=== PATIENT | male | born 1945 | race Caucasian/White ===

== ENCOUNTER 2016-10-30 14:39 | Emergency (ER) | payer MEDICARE, OTHER ==
[2016-10-30] MEDS ORDERED: BABY ASPIRIN 81 MG CHEW PO ONE (14:59)
[2016-10-30] MEDS ORDERED: Nitrostat 0.4 MG (ED) SL ONE ×3 (15:06→15:52)
--- NOTE | 2016-10-30 15:09 | ERPHSYRPT ---
- History of Present Illness Time Seen by Provider: 10/30/16 15:00 Historian: patient Exam Limitations: clinical condition Physician History: PATIENT WITH HISTORY OF HYPERTENSION AND CORONARY ARTERY DISEASE WITH PREVIOUS CARDIAC CATHERIZATION 3 YEARS AGO COMPLAINS OF LOWER STERNAL CHEST PAIN X 2 DAYS. DENIES ASSOCIATED DYSPNEA, DIAPHORESIS, PALPITATIONS, RADIATION OF PAIN TO NECK, JAW OR ARMS. Timing/Duration: yesterday Activities at Onset: none Quality: pressure, sharpness Location: substernal Chest Pain Radiation: no radiation Severity of Pain-Max: moderate Severity of Pain-Current: mild Associated Symptoms: denies symptoms Prior Chest Pain/Cardiac Workup: cardiac cath Nitro Today/Relief: 0.4 mg x 2, provided by ED Aspirin Treatment Today: 81 mg x 4, provided by ED Allergies/Adverse Reactions: No Known Drug Allergies Allergy (Verified 10/30/16 14:51) Home Medications: Aspirin EC 81 mg [Ecotrin 81 mg] 81 mg PO DAILY 11/08/12 [History] Gemfibrozil 600 mg [Lopid 600 mg] 300 mg PO BID 11/08/12 [History] Lisinopril 20 mg [Zestril 20 MG] 40 mg PO DAILY 11/08/12 [History] Metoprolol Succinate 50 mg [Toprol Xl 50 MG] 75 mg PO BID 11/08/12 [ History] Omeprazole 20 MG [Prilosec 20 mg] 20 mg PO DAILY 11/08/12 [History] Amlodipine Besylate 5 mg [Norvasc 5 mg] 5 mg DAILY 10/30/16 [History] Apixaban [Eliquis] 5 mg BID 10/30/16 [History] Hx Tetanus, Diphtheria Vaccination/Date Given: Yes Hx Influenza Vaccination/Date Given: No Hx Pneumococcal Vaccination/Date Given: Yes (Pt. would like one. Never had one.) - Review of Systems Constitutional: No Fever, No Chills Eyes: No Symptoms Ears, Nose, & Throat: No Symptoms Respiratory: No Cough, No Dyspnea Cardiac: Chest Pain, No Edema, No Syncope Abdominal/Gastrointestinal: No Symptoms, No Abdominal Pain, No Nausea, No Vomiting, No Diarrhea Genitourinary Symptoms: No Symptoms, No Dysuria Musculoskeletal: No Symptoms, No Back Pain, No Neck Pain Skin: No Symptoms, No Rash Neurological: No Dizziness, No Focal Weakness, No Sensory Changes Psychological: No Symptoms Endocrine: No Symptoms All Other Systems: Reviewed and Negative - Past Medical History Pertinent Past Medical History: Yes Neurological History: No Pertinent History ENT History: No Pertinent History Cardiac History: Angina, Arrhythmia, High Cholesterol, Hypertension Respiratory History: No Pertinent History Endocrine Medical History: No Pertinent History Musculoskeletal History: Other GI Medical History: No Pertinent History History: No Pertinent History Psycho-Social History: No Pertinent History Male Reproductive Disorders: No Pertinent History Other Medical History: mild coronary blockage without intervention. Hx Laminectomy L4-L5 back surgery in 1990. 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) - Nursing Vital Signs Nursing Vital Signs: Initial Vital Signs Pulse Rate [Bilateral] 73 Pulse Rate 69 Respiratory Rate 16 Blood Pressure [Left Arm] 119/70 Pain Intensity 0 - Physical Exam General Appearance: no apparent distress, alert Eye Exam: PERRL/EOMI, eyes nml inspection Ears, Nose, Throat Exam: normal ENT inspection, moist mucous membranes Neck Exam: normal inspection, non-tender, supple, full range of motion Respiratory Exam: normal breath sounds, lungs clear, No respiratory distress Cardiovascular Exam: regular rate/rhythm, normal heart sounds Gastrointestinal/Abdomen Exam: soft, normal bowel sounds (NONTENDER), No tenderness, No mass Back Exam: normal inspection, No CVA tenderness, No vertebral tenderness Extremity Exam: normal inspection, normal range of motion Neurologic Exam: alert, oriented x 3, cooperative, normal mood/affect, sensation nml, No motor deficits Skin Exam: normal color, warm, dry SpO2 Interpretation: normal SpO2: 97 - Course EKG Interpreted by Me: RATE, Sinus Rhythm, NORMAL AXIS, Right Bundle Branch Block - Radiology Exams Chest X-ray Interpretation: Discussed w/ radiologist, Negative - CT Exams Chest CT Interpretation: Discussed w/radiologist (NEGATIVE FOR PULMONARY EMBOLUS) Ordered Tests: Active Orders 24 hr Category Date Time Status Water/Wastewater Project Engineer STAT Care 10/30/16 14:59 Active EKG-ER Only STAT Care 10/30/16 14:59 Active IV Insertion STAT Care 10/30/16 14:59 Active Pulse Oximetry (ED) STAT Care 10/30/16 14:59 Active CHEST 1 VIEW (PORTABLE) Stat Exams 10/30/16 15:00 Completed CHEST WITH CONTRAST [CT] Stat Exams 10/30/16 15:54 Completed CBC W DIFF Stat Lab 10/30/16 15:00 Completed CMP Stat Lab 10/30/16 15:00 Completed D-DIMER QUANTITATION Stat Lab 10/30/16 15:06 Completed PROTIME WITH INR Stat Lab 10/30/16 15:06 Completed TROPONIN Q3H Lab 10/30/16 15:00 Completed TROPONIN Q3H Lab 10/30/16 18:00 Ordered TROPONIN Q3H Lab 10/30/16 21:00 Ordered TROPONIN Q3H Lab 10/31/16 00:00 Ordered TROPONIN Q3H Lab 10/31/16 03:00 Ordered Medication Summary Generic Name Dose Route Start Last Admin Trade Name Freq PRN Reason Stop Dose Admin Sodium Chloride 1,000 mls @ 50 mls/hr 10/30/16 15:15 10/30/16 15:19 Sodium Chloride 0.9% 1000 Ml IV 11/29/16 15:14 50 mls/hr .Q20H ERICA Administration Discontinued Medications Generic Name Dose Route Start Last Admin Trade Name Freq PRN Reason Stop Dose Admin Aspirin 324 mg 10/30/16 14:59 10/30/16 15:03 Baby Aspirin 81 Mg Chew PO 10/30/16 15:00 324 mg STAT ONE Administration Aspirin Confirm 10/30/16 15:13 Baby Aspirin 81 Mg Chew Administered 10/30/16 15:14 Dose 324 mg .ROUTE .STK-MED ONE Fentanyl Citrate 50 mcg 10/30/16 15:55 10/30/16 16:09 Sublimaze 100 Mcg/2 Ml IV 10/30/16 15:56 Not Given STAT ONE Fentanyl Citrate Confirm 10/30/16 16:03 Sublimaze 100 Mcg/2 Ml Administered 10/30/16 16:04 Dose 100 mcg .ROUTE .STK-MED ONE Nitroglycerin 0.4 mg 10/30/16 15:06 07/13/17 15:18 Nitrostat 0.4 Mg (Ed) SL 10/30/16 15:07 0.4 mg STAT ONE Administration Nitroglycerin Confirm 10/30/16 15:13 Nitrostat 0.4 Mg (Ed) Administered 10/30/16 15:14 Dose 0.4 mg SL .STK-MED ONE Nitroglycerin 0.4 mg 10/30/16 15:52 10/30/16 15:54 Nitrostat 0.4 Mg (Ed) SL 10/30/16 15:53 0.4 mg STAT ONE Administration Nitroglycerin 1 gm 10/30/16 15:52 10/30/16 16:29 Nitro-Bid 2% Ud Packets TOP 10/30/16 15:53 1 gm STAT ONE Administration Nitroglycerin Confirm 10/30/16 16:03 Nitro-Bid 2% Ud Packets Administered 10/30/16 16:04 Dose 1 gm .ROUTE .STK-MED ONE Ondansetron HCl 4 mg 10/30/16 15:55 10/30/16 16:09 Zofran 4 Mg/2 Ml Vial IV 10/30/16 15:56 Not Given STAT ONE Ondansetron HCl Confirm 10/30/16 16:03 Zofran 4 Mg/2 Ml Vial Administered 10/30/16 16:04 Dose 4 mg .ROUTE .STK-MED ONE Lab/Rad Data: Laboratory Result Diagrams 10/30/16 15:00 10/30/16 15:00 Laboratory Results 10/30/16 10/30/16 10/30/16 Range/Units 15:06 15:00 15:00 WBC (4.0-10.5) K/mm3 RBC (4.1-5.6) M/mm3 Hgb (12.5-18.0) gm/dl Hct (42-50) % MCV (78-100) fl MCH (26-32) pg MCHC (32-36) g/dl RDW (11.5-14.0) % Plt Count (150-450) K/mm3 MPV (6-9.5) fl Gran % (36.0-66.0) % Lymphocytes % (24.0-44.0) % Monocytes % (0.0-12.0) % Eosinophils % (0.00-5.0) % Basophils % (0.0-0.4) % Basophils # (0-0.4) INR 1.33 (0.8-3.0) D-Dimer 603 H* (0-500) ng/mL Sodium 139 (136-145) mEq/L Potassium 4.1 (3.5-5.1) mEq/L Chloride 101 (98-107) mEq/L Carbon Dioxide 28.8 (21-32) mEq/L Anion Gap 13.6 (5-15) MEQ/L BUN 13 (9-20) mg/dL Creatinine 1.24 (0.55-1.30) mg/dl Estimated GFR > 60 ML/MIN Glucose 106 (70-110) MG/DL Calcium 9.2 (8.5-10.1) mg/dL Total Bilirubin 0.60 (0.2-1.0) mg/dL AST 13 L (15-37) U/L ALT 18 (12-78) U/L Alkaline Phosphatase 57 (46-116) U/L Troponin I < 0.017 (0.000-0.056) ng/ml Serum Total Protein 7.4 (6.4-8.2) gm/dL Albumin 3.6 (3.4-5.0) g/dL 10/30/16 Range/Units 15:00 WBC 11.6 H (4.0-10.5) K/mm3 RBC 5.31 (4.1-5.6) M/mm3 Hgb 15.5 (12.5-18.0) gm/dl Hct 46.9 (42-50) % MCV 88.3 (78-100) fl MCH 29.2 (26-32) pg MCHC 33.0 (32-36) g/dl RDW 14.0 (11.5-14.0) % Plt Count 163 (150-450) K/mm3 MPV 11.3 H (6-9.5) fl Gran % 64.9 (36.0-66.0) % Lymphocytes % 22.2 L (24.0-44.0) % Monocytes % 10.4 (0.0-12.0) % Eosinophils % 2.2 (0.00-5.0) % Basophils % 0.3 (0.0-0.4) % Basophils # 0.03 (0-0.4) INR (0.8-3.0) D-Dimer (0-500) ng/mL Sodium (136-145) mEq/L Potassium (3.5-5.1) mEq/L Chloride (98-107) mEq/L Carbon Dioxide (21-32) mEq/L Anion Gap (5-15) MEQ/L BUN (9-20) mg/dL Creatinine (0.55-1.30) mg/dl Estimated GFR ML/MIN Glucose (70-110) MG/DL Calcium (8.5-10.1) mg/dL Total Bilirubin (0.2-1.0) mg/dL AST (15-37) U/L ALT (12-78) U/L Alkaline Phosphatase (46-116) U/L Troponin I (0.000-0.056) ng/ml Serum Total Protein (6.4-8.2) gm/dL Albumin (3.4-5.0) g/dL - Progress Progress: improved Progress Note: 10/30/16 18:07 PATIENT GIVEN NTG 0.4MG SL X 3 DOSES WITH COMPLETE RESOLUTION OR CHEST PAIN 10/30/16 18:09 PATIENT REFUSES OBSERVATION FOR 23HOURS. CONSULTED HIS SUPERVISOR RECEIVING AND PROCESSING [employer] DR MARTINEZ AT 1800 FOR FOLLOWUP Counseled pt/family regarding: lab results, diagnosis, need for follow-up - Departure Time of Disposition: 18:15 Departure Disposition: AMA Clinical Impression: ACUTE CHEST PAIN Condition: Stable Critical Care Time: No Additional Instructions: BEGIN NITROGLYCERIN 0.4MG EVERY 5 MINUTES FOR ONSET OF CHEST PAIN THEN FOLLOWUP AT EMERGENCY. FOLLOWUP WITH YOUR LIME MIXER TENDER TOMORROW, AND CONTINUE ALL CURRENT MEDICATIONS.
[2016-10-30] MEDS ORDERED: BABY ASPIRIN 81 MG CHEW ONE (15:13)
[2016-10-30] MEDS ORDERED: Sodium Chloride 0.9% 1000 ML 1,000 ML ONE (15:13)
[2016-10-30] MEDS ORDERED: Sodium Chloride 0.9% 1000 ML 1,000 ML IV SCH (15:15)
[2016-10-30 15:19] LABS: BASOPHIL % 0.3 % (0.0-0.4); Eosinophil % 2.2 % (0.00-5.0); Granulocytes % 64.9 % (36.0-66.0); Lymphocytes % 22.2 % (24.0-44.0); Mean Cell Volume 88.3 fl (78-100); Mean Corpuscular Hemoglobin 29.2 pg (26-32); Mean Platelet Volume 11.3 fl (6-9.5); Monocytes % 10.4 % (0.0-12.0); Platelet Count 163 K/mm3 (150-450); Red Blood Count 5.31 M/mm3 (4.1-5.6); White Blood Count 11.6 K/mm3 (4.0-10.5)
--- NOTE | 2016-10-30 15:22 | XRAY ---
Indication: Chest pain. Comparison: April 27, 2015. Portable chest again demonstrates normal heart and lungs with anterior chest electronic monitoring device. Bony thorax intact again with mild osteopenia and degenerative changes. No new/acute findings.
[2016-10-30 15:37] LABS: INR 1.33 (0.8-3.0); PROTIME 15.1 SECONDS (8.83-12.87)
[2016-10-30 15:45] LABS: ALBUMIN 3.6 g/dL (3.4-5.0); ALKALINE PHOSPHATASE 57 U/L (46-116); ANION GAP 13.6 MEQ/L (5-15); BLOOD UREA NITROGEN 13 mg/dL (9-20); CHLORIDE 101 mEq/L (98-107); Carbon Dioxide 28.8 mEq/L (21-32); Glucose 106 MG/DL (70-110); Potassium 4.1 mEq/L (3.5-5.1); SGOT/AST 13 U/L (15-37); SGPT/ALT 18 U/L (12-78); SODIUM 139 mEq/L (136-145); Total Protein 7.4 gm/dL (6.4-8.2)
[2016-10-30] MEDS ORDERED: NITRO-BID 2% UD PACKETS TOP ONE (15:52)
[2016-10-30] MEDS ORDERED: Zofran 4 MG/2 ML VIAL IV ONE (15:55)
[2016-10-30] MEDS ORDERED: SUBLIMAZE 100 MCG/2 ML IV ONE (15:55)
[2016-10-30] MEDS ORDERED: SUBLIMAZE 100 MCG/2 ML ONE (16:03)
[2016-10-30] MEDS ORDERED: NITRO-BID 2% UD PACKETS ONE (16:03)
[2016-10-30] MEDS ORDERED: Zofran 4 MG/2 ML VIAL ONE (16:03)
--- NOTE | 2016-10-30 16:48 | XRAY ---
Indication: Chest pain. Elevated d-dimer. Multiple contiguous axial images obtained through the chest using 80 cc Isovue 370 contrast and PE protocol. Comparison: None There is satisfactory opacification of the pulmonary arteries to include the lobar and segmental branches. No filling defect or pulmonary embolus. Heart is not enlarged. Aorta is normal in course and caliber. No pathologic mediastinal/hilar lymphadenopathy. Examination of the lung parenchyma demonstrates mild bilateral dependent atelectasis. Minimal emphysema in both upper lobes. Minimal biapical subpleural cysts and minimal left lung base scarring. Right apical 5 mm noncalcified nodule posteriorly (image 10, series 4). No infiltrate, consolidation, or effusion. Bony thorax intact with mild degenerative changes throughout the spine. Electronic monitoring device seen anterior to the sternum. Limited upper abdomen including adrenal glands are unremarkable. Impression: 1. Negative for pulmonary embolus. 2. No acute cardiopulmonary abnormalities. 3. Minimal pulmonary emphysema. 4. Indeterminate 5 mm right apical noncalcified pulmonary nodule. Comparison studies would be of benefit if they were performed elsewhere. Otherwise consider follow-up per Fleischner guidelines. CTDI 14.32
[2016-10-30 17:17] VITALS: BP 119/70
[2016-10-30 18:21] VITALS: PULSE 70; O2SAT 98
== END 2016-10-30 18:21 | disposition left against medical advice (07) ==
LOC: ED 14:39
DX: R07.89 Other chest pain (principal); I10 Essential (primary) hypertension; I25.10 Atherosclerotic heart disease of native coronary artery without angina pectoris; Z79.899 Other long term (current) drug therapy; Z79.01 Long term (current) use of anticoagulants; E78.00 Pure hypercholesterolemia, unspecified
CPT/HCPCS: 36000; 36415; 71010; 71260; 80053; 84484; 85025; 85379; 85610; 93005; 93041; 96360; 96361; 99284; J2405; J3010; A9270-GY

== ENCOUNTER 2018-12-22 15:00 | Emergency (ER) | payer MEDICARE, OTHER ==
[2018-12-22] MEDS ORDERED: solu-MEDROL 125 MG IV ONE (15:13)
[2018-12-22] MEDS ORDERED: DUONEB 0.5-3 MG/3 ml Neb IH ONE ×2 (15:13→15:28)
[2018-12-22] MEDS ORDERED: solu-MEDROL 125 MG ONE (15:19)
[2018-12-22 15:28] LABS: BASOPHIL % 0.1 % (0.0-0.4); Basophil (Absolute #) 0.02 (0-0.4); Eosinophil % 0.1 % (0.00-5.0); Eosinophil (Absolute #) 0.02 (0-0.5); Granulocyte Absolute (ANC) 13.32 (1.4-6.9); Granulocytes % 80.2 % (36.0-66.0); Hematocrit 48.5 % (42-50); Hemoglobin 15.9 gm/dl (12.5-18.0); Lymphocyte (Absolute #) 1.72 (1.0-4.6); Lymphocytes % 10.4 % (24.0-44.0); Mean Corpuscular Hemoglobin 29.8 pg (26-32); Mean Corpuscular Hgb Concent. 32.8 g/dl (32-36); Mean Platelet Volume 12.1 fl (6-9.5); Monocyte (Absolute #) 1.53 (0.0-1.3); Monocytes % 9.2 % (0.0-12.0); Platelet Count 180 K/mm3 (150-450); Red Blood Count 5.33 M/mm3 (4.1-5.6); Red Cell Distribution Width 14.2 % (11.5-14.0); White Blood Count 16.6 K/mm3 (4.0-10.5)
[2018-12-22 15:35] LABS: Lactic Acid 2.4 (0.4-2.0); VBG BASE EXCESS -0.1 (-2.0-2.0); VBG CARBOXYHEMOGLOBIN 4.9 % T HGB (0.0-6.9); VBG HEMOGLOBIN 16.2; VBG O2 SATURATION 94.6 (95-100); VBG PCO2 37 mm/Hg (42-55); VBG PO2 60 mm/Hg (25-40); VBG POTASSIUM 4.8 (3.5-5.1); VBG pH 7.42 (7.32-7.42)
[2018-12-22] MEDS ORDERED: Sodium Chloride 0.9% 1000 ML 1,000 ML IV STA ×2 (15:41→18:24)
--- NOTE | 2018-12-22 15:46 | ERPHSYRPT ---
- History of Present Illness Source: patient Exam Limitations: no limitations Patient Subjective Stated Complaint: C/o sob past couple days and wheezing first noticed last night. Triage Nursing Assessment: Patient here from [facility] due shortness of breath and wheezing. Nurse from [facility] pushed patient here in w/c. Patient aaox3 , color good, audible wheezing noted. No resp distress noted. GARCIA well, Lung sounds with wheezes bilaterally. Denies chest pain. states h/o afib. states takes elaquis 5mg bid. No edema to extremeties noted. MD with patient at this time. Physician History: The patient has had increasing wheezing which is causing shortness of breath with exertion over the past day. Patient was referred to the emergency department from a local clinic care unit. Timing/Duration: yesterday Activities at Onset: activity Severity of Dyspnea-Max: mild Severity of Dyspnea-Current: mild Possible Cause: occasional episodes Modifying Factors: Improves With: activity (slightly worsens; has not tried anything to help with symptoms) Associated Symptoms: intermittent, wheezing, No anxiety, No cough, No chest pain /discomfort, No edema, No fever, No insomnia, No loss of appetite, No lightheadedness, No weakness, No ankle swelling, No hemoptysis, No calf pain, No dizziness, No heaviness, No heart racing, No lightheadedness, No muscle spasms feet, No muscle spasms hands, No painful breathing, No productive cough, No sweating, No tightness Allergies/Adverse Reactions: No Known Drug Allergies Allergy (Verified 12/22/18 15:12) Home Medications: Lisinopril 20 mg [Zestril 20 MG] 40 mg PO DAILY 11/08/12 [History] Metoprolol Succinate 50 mg [Toprol Xl 50 MG] 75 mg PO BID 11/08/12 [ History] Omeprazole 20 MG [Prilosec 20 mg] 20 mg PO DAILY 11/08/12 [History] Amlodipine Besylate 5 mg [Norvasc 5 mg] 5 mg DAILY 10/30/16 [History] Apixaban [Eliquis] 5 mg BID 10/30/16 [History] Pravastatin Sodium 20 mg PO DAILY 12/22/18 [History] Hx Tetanus, Diphtheria Vaccination/Date Given: No Hx Influenza Vaccination/Date Given: No Hx Pneumococcal Vaccination/Date Given: No - Review of Systems Constitutional: No Fever, No Chills Eyes: No Symptoms, No Eye Pain, No Eye Redness, No Photophobia Ears, Nose, & Throat: No Symptoms, No Nose Congestion, No Nose Discharge Respiratory: Dyspnea, Dyspnea on Exertion (PHELPS), Wheezing, No Cough, No Stridor Cardiac: No Chest Pain, No Edema, No Syncope Abdominal/Gastrointestinal: No Abdominal Pain, No Nausea, No Vomiting, No Diarrhea, No Hematemesis, No Hematochezia, No Melena Genitourinary Symptoms: No Dysuria, No Hematuria, No Flank Pain Musculoskeletal: No Back Pain, No Neck Pain Skin: No Rash Neurological: No Dizziness, No Focal Weakness, No Sensory Changes Psychological: No Symptoms Endocrine: No Symptoms Hematologic/Lymphatic: No Blood Clots, No Easy Bleeding All Other Systems: Reviewed and Negative - Past Medical History Pertinent Past Medical History: Yes Neurological History: No Pertinent History ENT History: No Pertinent History Cardiac History: Angina, Arrhythmia, High Cholesterol, Hypertension Respiratory History: No Pertinent History Endocrine Medical History: No Pertinent History Musculoskeletal History: Other GI Medical History: No Pertinent History History: No Pertinent History Psycho-Social History: No Pertinent History Male Reproductive Disorders: No Pertinent History Other Medical History: mild coronary blockage without intervention. Hx Laminectomy L4-L5 back surgery in 1990. - Past Surgical History Past Surgical History: Yes Neuro Surgical History: No Pertinent History Cardiac: Cardiac Catheterization Respiratory: No Pertinent History Gastrointestinal: No Pertinent History Genitourinary: No Pertinent History Musculoskeletal: Other Male Surgical History: No Pertinent History Other Surgical History: T&A, BACK SURGERY - Social History Smoking Status: Current every day smoker How long have you smoked: 50 yrs Exposure to second hand smoke: No Drug Use: none Patient Lives Alone: No - Nursing Vital Signs Nursing Vital Signs: Initial Vital Signs Temperature 97.3 F 12/22/18 15:03 Pulse Rate 65 12/22/18 15:03 Respiratory Rate 22 12/22/18 15:03 Blood Pressure 133/90 12/22/18 15:03 O2 Sat by Pulse Oximetry 98 12/22/18 15:03 Pain Scale Pain Intensity 0 - Physical Exam General Appearance: no apparent distress, alert Eye Exam: PERRL/EOMI Ears, Nose, Throat Exam: hearing grossly normal, normal ENT inspection, normal pharynx, No sinus pain/drainage, No nasal congestion, No pharyngeal erythema, No tonsillar exudate Neck Exam: normal inspection, non-tender, supple, full range of motion, No Brudzinski, No Kernig's, No lymphadenopathy (R), No subcutaneous emphysema Respiratory Exam: airway intact, wheezing, No respiratory distress, No diminished breath sounds, No accessory muscle use, No prolonged expirations, No crackles/rales, No rhonchi, No stridor Cardiovascular/Chest Exam: normal heart sounds, regular rate/rhythm, normal peripheral pulses, No murmur, No edema, No JVD Abdominal/Gastrointestinal Exam: soft, No tenderness, No distention, No mass Extremity Exam: non-tender, normal range of motion, normal inspection, no calf tenderness, no pedal edema Neurologic Exam: alert, oriented x 3, cooperative, 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 handler II-XII nml as tested, sensation nml, No motor deficits Skin Exam: normal color, warm, No dry Lymphatic Exam: No adenopathy SpO2 Interpretation: normal SpO2: 98 O2 Delivery: Room Air - Course Nursing assessment & vital signs reviewed: Yes EKG Interpreted by Me: RATE (60), NORMAL AXIS, Right Bundle Branch Block, NORMAL ST-T, Other (new right bundle branch block in comparison to EKG from 12/10 with probable right ventricular hypertrophy that's also new;) - Radiology Exams Chest X-ray Interpretation: Reviewed by me, No Pneumonia, No Pneumothorax, Nml Heart Size, Nml Mediastinum, Other (anterior chest electronic monitoring device; confirmed by radiologist interpretation) Ordered Tests: Active Orders 24 hr Category Date Time Status Data Warehousing Manager STAT Care 12/22/18 15:14 Active EKG-ER Only STAT Care 12/22/18 15:13 Active IV Insertion STAT Care 12/22/18 15:13 Active CHEST 2 VIEWS (PA AND LAT) Stat Exams 12/22/18 15:14 Completed BLOOD CULTURE Stat Lab 12/22/18 15:50 Received CBC W DIFF Stat Lab 12/22/18 15:15 Completed CMP Stat Lab 12/22/18 15:15 Completed Lactic Acid Stat Lab 12/22/18 15:30 Completed Lactic Acid Stat Lab 12/22/18 17:39 Results MAGNESIUM Stat Lab 12/22/18 15:15 Completed NT PRO BNP Stat Lab 12/22/18 15:15 Completed PROTIME WITH INR Stat Lab 12/22/18 15:15 Completed PTT Stat Lab 12/22/18 15:15 Completed TROPONIN Q3H Lab 12/22/18 15:15 Completed TROPONIN Q3H Lab 12/22/18 18:15 Ordered TROPONIN Q3H Lab 12/22/18 21:15 Ordered TROPONIN Q3H Lab 12/23/18 00:15 Ordered TROPONIN Q3H Lab 12/23/18 03:15 Ordered UA W/RFX UR CULTURE Stat Lab 12/22/18 16:55 Completed VENOUS BLOOD GAS Stat Lab 12/22/18 15:30 Completed Peak Expiratory Flow Rate ONCE RT 12/22/18 15:37 Active Respiratory Therapy Assessment DAILY RT 12/22/18 15:37 Active Medication Summary Generic Name Dose Route Start Last Admin Trade Name Freq PRN Reason Stop Dose Admin Sodium Chloride 1,000 mls @ 999 mls/hr 12/22/18 18:24 Sodium Chloride 0.9% 1000 Ml IV 12/22/18 19:24 .Q1H1M STA Discontinued Medications Generic Name Dose Route Start Last Admin Trade Name Freq PRN Reason Stop Dose Admin Albuterol/Ipratropium 6 ml 12/22/18 15:13 12/22/18 15:40 Duoneb 0.5-3 Mg/3 Ml Neb IH 12/22/18 15:14 6 ml STAT ONE Administration Albuterol/Ipratropium Confirm 12/22/18 15:28 Duoneb 0.5-3 Mg/3 Ml Neb Administered 12/22/18 15:29 Dose 6 ml IH .STK-MED ONE Sodium Chloride 1,000 mls @ 999 mls/hr 12/22/18 15:41 12/22/18 17:27 Sodium Chloride 0.9% 1000 Ml IV 12/22/18 16:41 Infused .Q1H1M STA Infusion Sodium Chloride Confirm 12/22/18 15:58 Sodium Chloride 0.9% 1000 Ml Administered 12/22/18 15:59 Dose 1,000 mls @ ud .ROUTE .STK-MED ONE Methylprednisolone Sodium Succinate 125 mg 12/22/18 15:13 12/22/18 15:30 Solu-Medrol 125 Mg IV 12/22/18 15:14 125 mg STAT ONE Administration Methylprednisolone Sodium Succinate Confirm 12/22/18 15:19 Solu-Medrol 125 Mg Administered 12/22/18 15:20 Dose 125 mg .ROUTE .STK-MED ONE Lab/Rad Data: Laboratory Result Diagrams 12/22/18 15:15 12/22/18 15:15 Laboratory Results 12/22/18 12/22/18 12/22/18 Range/Units 17:39 16:55 15:30 WBC (4.0-10.5) K/mm3 RBC (4.1-5.6) M/mm3 Hgb (12.5-18.0) gm/dl Hct (42-50) % MCV (78-100) fl MCH (26-32) pg MCHC (32-36) g/dl RDW (11.5-14.0) % Plt Count (150-450) K/mm3 MPV (6-9.5) fl Gran % (36.0-66.0) % Eos # (Auto) (0-0.5) Absolute Lymphs (auto) (1.0-4.6) Absolute Monos (auto) (0.0-1.3) Lymphocytes % (24.0-44.0) % Monocytes % (0.0-12.0) % Eosinophils % (0.00-5.0) % Basophils % (0.0-0.4) % Absolute Granulocytes (1.4-6.9) Basophils # (0-0.4) PT (8.83-12.87) SECONDS INR (0.8-3.0) APTT (24.1-36.1) SECONDS pO2/FiO2 Ratio 21.0 % VBG pH 7.42 (7.32-7.42) VBG pCO2 at Pat Temp 37 L (42-55) mm/Hg VBG pO2 at Pat Temp 60 H (25-40) mm/Hg VBG HCO3 24.0 (22-28) meq/L VBG O2 Sat (Keri) 94.6 L (95-100) VBG Base Excess -0.1 (-2.0-2.0) VBG Hemoglobin 16.2 VBG Carboxyhemoglobin 4.9 (0.0-6.9) % T HGB POC Potassium 4.8 (3.5-5.1) Sodium (137-145) mmol/L Potassium (3.5-5.1) mmol/L Chloride (98-107) mmol/L Carbon Dioxide (22-30) mmol/L Anion Gap (5-15) MEQ/L BUN (9-20) mg/dL Creatinine (0.66-1.25) mg/dL Estimated GFR ML/MIN Glucose (74-106) mg/dL Lactic Acid 2.5 H 2.4 H (0.4-2.0) Calcium (8.4-10.2) mg/dL Magnesium (1.6-2.3) mg/dL Total Bilirubin (0.2-1.3) mg/dL AST (17-59) U/L ALT (0-50) U/L Alkaline Phosphatase (38-126) U/L Troponin I (0.000-0.034) ng/mL NT-Pro-B Natriuret Pep (0-900) pg/mL Serum Total Protein (6.3-8.2) g/dL Albumin (3.5-5.0) g/dL Urine Color YELLOW (YELLOW) Urine Appearance CLEAR (CLEAR) Urine pH 5.0 (5-6) Ur Specific [place] 1.014 (1.005-1.025) Urine Protein NEGATIVE (Negative) Urine Ketones NEGATIVE (NEGATIVE) Urine Blood SMALL (0-5) Tobi/ul Urine Nitrite NEGATIVE (NEGATIVE) Urine Bilirubin NEGATIVE (NEGATIVE) Urine Urobilinogen NEGATIVE (0-1) mg/dL Ur Leukocyte Esterase NEGATIVE (NEGATIVE) Urine WBC (Auto) NONE (0-5) /HPF Urine RBC (Auto) NONE (0-2) /HPF U Hyaline Cast (Auto) 3-5 (0-2) /LPF U Epithel Cells (Auto) NONE (FEW) /HPF Urine Bacteria (Auto) NONE (NEGATIVE) /HPF Urine Mucus (Auto) SLIGHT (NEGATIVE) /HPF Urine Culture Reflexed NO (NO) Urine Glucose NEGATIVE (NEGATIVE) mg/dL 12/22/18 12/22/18 12/22/18 Range/Units 15:15 15:15 15:15 WBC (4.0-10.5) K/mm3 RBC (4.1-5.6) M/mm3 Hgb (12.5-18.0) gm/dl Hct (42-50) % MCV (78-100) fl MCH (26-32) pg MCHC (32-36) g/dl RDW (11.5-14.0) % Plt Count (150-450) K/mm3 MPV (6-9.5) fl Gran % (36.0-66.0) % Eos # (Auto) (0-0.5) Absolute Lymphs (auto) (1.0-4.6) Absolute Monos (auto) (0.0-1.3) Lymphocytes % (24.0-44.0) % Monocytes % (0.0-12.0) % Eosinophils % (0.00-5.0) % Basophils % (0.0-0.4) % Absolute Granulocytes (1.4-6.9) Basophils # (0-0.4) PT 14.6 H (8.83-12.87) SECONDS INR 1.29 (0.8-3.0) APTT 33.7 (24.1-36.1) SECONDS pO2/FiO2 Ratio % VBG pH (7.32-7.42) VBG pCO2 at Pat Temp (42-55) mm/Hg VBG pO2 at Pat Temp (25-40) mm/Hg VBG HCO3 (22-28) meq/L VBG O2 Sat (Keri) (95-100) VBG Base Excess (-2.0-2.0) VBG Hemoglobin VBG Carboxyhemoglobin (0.0-6.9) % T HGB POC Potassium (3.5-5.1) Sodium 140 (137-145) mmol/L Potassium 3.9 (3.5-5.1) mmol/L Chloride 106 (98-107) mmol/L Carbon Dioxide 24 (22-30) mmol/L Anion Gap 14.0 (5-15) MEQ/L BUN 28 H (9-20) mg/dL Creatinine 1.44 H (0.66-1.25) mg/dL Estimated GFR 51.3 ML/MIN Glucose 125 H (74-106) mg/dL Lactic Acid (0.4-2.0) Calcium 9.5 (8.4-10.2) mg/dL Magnesium 2.0 (1.6-2.3) mg/dL Total Bilirubin 0.60 (0.2-1.3) mg/dL AST 23 (17-59) U/L ALT 14 (0-50) U/L Alkaline Phosphatase 59 (38-126) U/L Troponin I < 0.012 (0.000-0.034) ng/mL NT-Pro-B Natriuret Pep 236 (0-900) pg/mL Serum Total Protein 7.9 (6.3-8.2) g/dL Albumin 4.3 (3.5-5.0) g/dL Urine Color (YELLOW) Urine Appearance (CLEAR) Urine pH (5-6) Ur Specific [place] (1.005-1.025) Urine Protein (Negative) Urine Ketones (NEGATIVE) Urine Blood (0-5) Tobi/ul Urine Nitrite (NEGATIVE) Urine Bilirubin (NEGATIVE) Urine Urobilinogen (0-1) mg/dL Ur Leukocyte Esterase (NEGATIVE) Urine WBC (Auto) (0-5) /HPF Urine RBC (Auto) (0-2) /HPF U Hyaline Cast (Auto) (0-2) /LPF U Epithel Cells (Auto) (FEW) /HPF Urine Bacteria (Auto) (NEGATIVE) /HPF Urine Mucus (Auto) (NEGATIVE) /HPF Urine Culture Reflexed (NO) Urine Glucose (NEGATIVE) mg/dL 12/22/18 Range/Units 15:15 WBC 16.6 H (4.0-10.5) K/mm3 RBC 5.33 (4.1-5.6) M/mm3 Hgb 15.9 (12.5-18.0) gm/dl Hct 48.5 (42-50) % MCV 91.0 (78-100) fl MCH 29.8 (26-32) pg MCHC 32.8 (32-36) g/dl RDW 14.2 H (11.5-14.0) % Plt Count 180 (150-450) K/mm3 MPV 12.1 H (6-9.5) fl Gran % 80.2 H (36.0-66.0) % Eos # (Auto) 0.02 (0-0.5) Absolute Lymphs (auto) 1.72 (1.0-4.6) Absolute Monos (auto) 1.53 H (0.0-1.3) Lymphocytes % 10.4 L (24.0-44.0) % Monocytes % 9.2 (0.0-12.0) % Eosinophils % 0.1 (0.00-5.0) % Basophils % 0.1 (0.0-0.4) % Absolute Granulocytes 13.32 H (1.4-6.9) Basophils # 0.02 (0-0.4) PT (8.83-12.87) SECONDS INR (0.8-3.0) APTT (24.1-36.1) SECONDS pO2/FiO2 Ratio % VBG pH (7.32-7.42) VBG pCO2 at Pat Temp (42-55) mm/Hg VBG pO2 at Pat Temp (25-40) mm/Hg VBG HCO3 (22-28) meq/L VBG O2 Sat (Keri) (95-100) VBG Base Excess (-2.0-2.0) VBG Hemoglobin VBG Carboxyhemoglobin (0.0-6.9) % T HGB POC Potassium (3.5-5.1) Sodium (137-145) mmol/L Potassium (3.5-5.1) mmol/L Chloride (98-107) mmol/L Carbon Dioxide (22-30) mmol/L Anion Gap (5-15) MEQ/L BUN (9-20) mg/dL Creatinine (0.66-1.25) mg/dL Estimated GFR ML/MIN Glucose (74-106) mg/dL Lactic Acid (0.4-2.0) Calcium (8.4-10.2) mg/dL Magnesium (1.6-2.3) mg/dL Total Bilirubin (0.2-1.3) mg/dL AST (17-59) U/L ALT (0-50) U/L Alkaline Phosphatase (38-126) U/L Troponin I (0.000-0.034) ng/mL NT-Pro-B Natriuret Pep (0-900) pg/mL Serum Total Protein (6.3-8.2) g/dL Albumin (3.5-5.0) g/dL Urine Color (YELLOW) Urine Appearance (CLEAR) Urine pH (5-6) Ur Specific [place] (1.005-1.025) Urine Protein (Negative) Urine Ketones (NEGATIVE) Urine Blood (0-5) Tobi/ul Urine Nitrite (NEGATIVE) Urine Bilirubin (NEGATIVE) Urine Urobilinogen (0-1) mg/dL Ur Leukocyte Esterase (NEGATIVE) Urine WBC (Auto) (0-5) /HPF Urine RBC (Auto) (0-2) /HPF U Hyaline Cast (Auto) (0-2) /LPF U Epithel Cells (Auto) (FEW) /HPF Urine Bacteria (Auto) (NEGATIVE) /HPF Urine Mucus (Auto) (NEGATIVE) /HPF Urine Culture Reflexed (NO) Urine Glucose (NEGATIVE) mg/dL - Progress Progress: improved, re-examined Air Movement: good Progress Note: 12/22/18 17:39 improved airflow throughout with some fine end expiratory wheezing still present ; no respiratory distress, no accessory muscle use noted, and patient has no hypoxia on pulse oximetry. Patient feels subjectively much better. Patient will have repeat lactic acid 12/22/18 18:25 Patient's lactic acid increased slightly to 2.5. patient refused any further IV fluids and like to be discharged home and he feels well and his breathing has improved significantly from the time he came in. Patient states he will drink fluids at home. patient understands that he has mild renal insufficiency as well as an elevated lactic acid, but he does not want to have any further IV hydration and will followup with primary care physician. 12/22/18 18:28 the patient is hemodynamically in good condition, no respiratory distress, no hypoxia, and prefers to be discharged with no further lab work or IV hydration. Blood Culture(s) Obtained: Yes Antibiotics given: No Counseled pt/family regarding: lab results, diagnosis, need for follow-up, rad results - Departure Departure Disposition: Home Clinical Impression: Acute renal insufficiency Acute bronchitis Qualifiers: Bronchitis organism: unspecified organism Qualified Code(s): J20.9 - Acute bronchitis, unspecified Hypertension Qualifiers: Hypertension type: essential hypertension Qualified Code(s): I10 - Essential ( primary) hypertension Leukocytosis, unspecified Qualifiers: Leukocytosis type: unspecified Qualified Code(s): D72.829 - Elevated white blood cell count, unspecified Condition: Good Critical Care Time: No Referrals: ELIDIA OLIVAS MD [Primary Care Provider] - 12/23/18 (Follow-up your labs and response to therapy with Dr Olivas) Instructions: Shortness of Breath (Dyspnea) (DC), Acute Bronchitis, Adult (DC) , Acute Kidney Failure (DC) Additional Instructions: return immediately back to the emergency department if any new shortness of breath, any dizziness, any chest pain, or any other concerning signs or symptoms that were not present at today's emergency department visit for immediate reevaluation. Prescriptions: Albuterol Sulfate [Proair Hfa] 8.5 gm IH Q4H PRN PRN #1 [email or web address] PRN Reason: Wheezing/Chest Congestion Prednisone 20 mg [Deltasone 20 mg] 60 mg PO DAILY PRN #9 tablet PRN Reason: Sore Throat Relief
[2018-12-22] MEDS ORDERED: Sodium Chloride 0.9% 1000 ML 0 ML ONE (15:58)
[2018-12-22 16:07] LABS: INR 1.29 (0.8-3.0); PROTIME 14.6 SECONDS (8.83-12.87)
[2018-12-22 16:10] LABS: PTT 33.7 SECONDS (24.1-36.1)
--- NOTE | 2018-12-22 16:15 | XRAY ---
Indication: Dyspnea. Short of breath. Comparison: October 30, 2016. PA/lateral chest again demonstrates normal heart and lungs. Bony thorax intact again with mild degenerative changes and anterior chest electronic monitoring device. No new/acute findings.
[2018-12-22 16:21] LABS: ALBUMIN 4.3 g/dL (3.5-5.0); BILIRUBIN,TOTAL 0.6 mg/dL (0.2-1.3); Calcium 9.5 mg/dL (8.4-10.2); Creatinine 1 1.44 mg/dL (0.66-1.25); Potassium 3.9 mmol/L (3.5-5.1); Total Protein 7.9 g/dL (6.3-8.2)
[2018-12-22 16:40] VITALS: O2SAT 98
[2018-12-22 17:20] LABS: Appearance CLEAR (CLEAR); Bilirubin NEGATIVE (NEGATIVE); Blood SMALL Ery/ul (0-5); Glucose NEGATIVE (NEGATIVE); Ketones NEGATIVE (NEGATIVE); Leukocyte Esterase NEGATIVE (NEGATIVE); Mucus SLIGHT /HPF (NEGATIVE); Nitrite NEGATIVE (NEGATIVE); Protein,Urine Dip NEGATIVE (Negative); Specific Gravity 1.014 (1.005-1.025); Urobilinogen NEGATIVE mg/dL (0-1)
[2018-12-22 17:44] LABS: Lactic Acid 2.5 (0.4-2.0)
[2018-12-22] MEDS ORDERED: Sodium Chloride 0.9% 1000 ML 1,000 ML ONE (18:39)
[2018-12-22 18:42] VITALS: BP 143/80; PULSE 70
[2018-12-22 19:16] LABS: Slide Review 1 YES
== END 2018-12-22 18:49 | disposition home or self-care (01) ==
LOC: ED 15:00
DX: N28.9 Disorder of kidney and ureter, unspecified (principal); J20.9 Acute bronchitis, unspecified; I10 Essential (primary) hypertension; D72.829 Elevated white blood cell count, unspecified; R06.02 Shortness of breath
CPT/HCPCS: 36000; 36415; 71046; 80053; 81001; 82805; 83605; 83735; 83880; 84484; 85025; 85610; 85730; 87040; 93005; 93041; 94150; 94640; 96360; 96374; 99284; J2930; A9270-GY

== ENCOUNTER 2020-12-15 19:06 | Emergency (ER) | payer MEDICARE ==
[2020-12-15] MEDS ORDERED: Sodium Chloride 0.9% 1000 ML 1,000 ML IV STA (19:15)
[2020-12-15] MEDS ORDERED: Sodium Chloride 0.9% 1000 ML 1,000 ML ONE (19:24)
[2020-12-15 19:49] LABS: Absolute Neutrophil Ct (ANC) 8.85 (1.4-6.9); BASOPHIL % 0.2 % (0.0-0.4); Basophil (Absolute #) 0.02 (0-0.4); Eosinophil % 0.2 % (0.00-5.0); Eosinophil (Absolute #) 0.02 (0-0.5); Hematocrit 46.2 % (42-50); Hemoglobin 15.1 gm/dl (12.5-18.0); Lymphocyte (Absolute #) 0.81 (1.0-4.6); Lymphocytes % 7.9 % (24.0-44.0); Mean Cell Volume 90.6 fl (78-100); Mean Corpuscular Hemoglobin 29.6 pg (26-32); Mean Corpuscular Hgb Concent. 32.7 g/dl (32-36); Mean Platelet Volume 11.3 fl (7.5-11.0); Monocyte (Absolute #) 0.49 (0.0-1.3); Monocytes % 4.8 % (0.0-12.0); Neutrophil % 86.9 % (36.0-66.0); Platelet Count 131 K/mm3 (150-450); Red Cell Distribution Width 14.2 % (11.5-14.0); White Blood Count 10.2 K/mm3 (4.0-10.5)
[2020-12-15 19:56] LABS: INR 1.16 (0.8-3.0); PROTIME 13.7 SECONDS (9.4-12.5)
[2020-12-15 20:01] LABS: ALBUMIN 4.6 g/dL (3.5-5.0); ANION GAP 16.1 MEQ/L (5-15); BILIRUBIN,TOTAL 0.9 mg/dL (0.2-1.3); Calcium 9.4 mg/dL (8.4-10.2); Creatinine 1 1.27 mg/dL (0.66-1.25); EST GLOMERULAR FILTRATION RATE 58.9 ML/MIN; Potassium 3.6 mmol/L (3.5-5.1); Total Protein 7.6 g/dL (6.3-8.2)
[2020-12-15 20:05] LABS: AMYLASE 60 U/L (30-110); LIPASE 69 U/L (23-300)
[2020-12-15 20:07] LABS: INFLUENZA A NEGATIVE (NEGATIVE); INFLUENZA B NEGATIVE (NEGATIVE)
[2020-12-15 20:27] LABS: Appearance CLEAR (CLEAR); Bilirubin NEGATIVE (NEGATIVE); Blood MODERATE Ery/ul (0-5); Glucose NEGATIVE (NEGATIVE); Ketones NEGATIVE (NEGATIVE); Leukocyte Esterase NEGATIVE (NEGATIVE); Mucus SLIGHT /HPF (NEGATIVE); Nitrite NEGATIVE (NEGATIVE); Protein,Urine Dip 100 (Negative); Specific Gravity 1.017 (1.005-1.025); Urobilinogen NEGATIVE mg/dL (0-1)
--- NOTE | 2020-12-15 21:48 | XRAY ---
Indication: Fever and cough. Comparison: December 22, 2018. Portable chest remains clear. Heart and mediastinal structures within normal limits. Bony thorax intact again with mild degenerative changes and anterior chest electronic monitoring device. Impression: Continued nonacute chest with chronic features.
[2020-12-15 22:21] VITALS: BP 128/51; PULSE 85; O2SAT 95
--- NOTE | 2020-12-15 22:46 | ERPHSYRPT ---
- History of Present Illness Time Seen by Provider: 12/15/20 19:15 Source: patient, family Patient Subjective Stated Complaint: C/O feeling tired and weak, Headache, sweats and chills. Denies any other pain or SOB. reports he was vomiting just before arrival to ER. Triage Nursing Assessment: Arrived in ER at back entrance via private vehicle with . Patient noted to be weak and had to be assisted into W/C per staff. Weakness is generalized and not isolated to one side of patient's body. Patient feels warm to touch and is flushed and sweaty. Denies being diabetic. Denies SOB. 02 sats 96% on room air. Patient is alert at this time and answering questions appropriately but is drowsy. Lungs diminished. Denies chest pain. Physician History: Madi is a 75-year-old white male who presents with a complaint of the sudden onset of chills weakness and diaphoretic recess. Yesterday he had an episode where he got a little too hot but he recovered from that at 4 PM today he developed chills sweats nausea vomiting headache he had decreased intake at noon his sense of taste and smell are okay. Timing/Duration: today Activities at Onset: none Severity of Dyspnea-Max: mild Severity of Dyspnea-Current: mild Possible Cause: no prior episodes Modifying Factors: Improves With: coughing Associated Symptoms: cough, loss of appetite Allergies/Adverse Reactions: No Known Drug Allergies Allergy (Verified 12/15/20 19:28) Home Medications: Lisinopril 20 mg [Zestril 20 MG] 40 mg PO DAILY 11/08/12 [History] Omeprazole 20 MG [Prilosec 20 mg] 20 mg PO DAILY 11/08/12 [History] Amlodipine Besylate 5 mg [Norvasc 5 mg] 5 mg PO DAILY 10/30/16 [History] Apixaban [Eliquis] 5 mg PO BID 10/30/16 [History] Pravastatin Sodium 20 mg PO DAILY 12/22/18 [History] Metoprolol Tartrate 75 mg PO BID 12/15/20 [History] Hx Tetanus, Diphtheria Vaccination/Date Given: Yes Hx Influenza Vaccination/Date Given: Yes Hx Pneumococcal Vaccination/Date Given: No Immunizations Up to Date: Yes Travel Risk - International Travel Have you traveled outside of the country in past 3 weeks: No - Coronavirus Screening Are you exhibiting any of the following symptoms?: Yes Symptoms: Fever, Vomiting/Diarrhea, Headaches/Body Aches/Fatigue Close contact with a COVID-19 positive Pt in past 14-21 Days: No - Vaccine Status Have you recieved a Covid-19 vaccination: Yes Final Application Reviewer: Drimmi - Vaccination Dates Date of 2cond Vaccination (if applicable): 05/29/2020 - Review of Systems Constitutional: Fever, Chills, Malaise, Night Sweats Eyes: No Symptoms Ears, Nose, & Throat: No Symptoms Respiratory: Cough, Dyspnea Cardiac: No Chest Pain, No Edema, No Syncope Abdominal/Gastrointestinal: Nausea, Vomiting, No Abdominal Pain, No Diarrhea Genitourinary Symptoms: No Dysuria Musculoskeletal: Arthralgias, Myalgias, No Back Pain, No Neck Pain Skin: No Rash Neurological: No Dizziness, No Focal Weakness, No Sensory Changes Psychological: No Symptoms Endocrine: No Symptoms All Other Systems: Reviewed and Negative - Past Medical History Pertinent Past Medical History: Yes Neurological History: No Pertinent History ENT History: No Pertinent History Cardiac History: Angina, Arrhythmia, High Cholesterol, Hypertension Respiratory History: No Pertinent History Endocrine Medical History: No Pertinent History Musculoskeletal History: Other GI Medical History: No Pertinent History History: No Pertinent History Psycho-Social History: No Pertinent History Male Reproductive Disorders: No Pertinent History Other Medical History: mild coronary blockage without intervention. Hx Laminectomy L4-L5 back surgery in 1990. - Past Surgical History Past Surgical History: Yes Neuro Surgical History: No Pertinent History Cardiac: Cardiac Catheterization Respiratory: No Pertinent History Gastrointestinal: No Pertinent History Genitourinary: No Pertinent History Musculoskeletal: Other Male Surgical History: No Pertinent History Other Surgical History: T&A, BACK SURGERY - Social History Smoking Status: Current every day smoker How long have you smoked: 50 yrs Exposure to second hand smoke: No Drug Use: none Patient Lives Alone: No () - Nursing Vital Signs Nursing Vital Signs: Initial Vital Signs Temperature 100.3 F 12/15/20 19:08 Pulse Rate 83 12/15/20 19:08 Respiratory Rate 24 12/15/20 19:08 Blood Pressure 175/77 12/15/20 19:08 O2 Sat by Pulse Oximetry 94 L 12/15/20 19:08 Pain Scale Pain Intensity 0 - Physical Exam General Appearance: mild distress, alert Eye Exam: PERRL/EOMI Neck Exam: normal inspection, supple Respiratory Exam: crackles/rales, rhonchi Cardiovascular/Chest Exam: normal heart sounds, regular rate/rhythm Abdominal/Gastrointestinal Exam: soft, No tenderness, No distention, No mass Extremity Exam: non-tender, normal range of motion, normal inspection, no calf tenderness, no pedal edema Neurologic Exam: alert, oriented x 3, cooperative, 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, sensation nml, No motor deficits Skin Exam: normal color, warm, No dry SpO2 Interpretation: normal SpO2: 95 O2 Delivery: Room Air - Course Nursing assessment & vital signs reviewed: Yes EKG Interpreted by Me: RATE (81), Sinus Rhythm, Right Bundle Branch Block, Non- specific ST Changes - Radiology Exams Chest X-ray Interpretation: Interpreted by me, Other (Bilateral diffuse opacities) Ordered Tests: Active Orders 24 hr Category Date Time Status EKG-ER Only STAT Care 12/15/20 19:15 Active IV Insertion STAT Care 12/15/20 19:15 Active Pulse Oximetry (ED) STAT Care 12/15/20 19:15 Active CHEST 1 VIEW (PORTABLE) Stat Exams 12/15/20 19:16 Completed AMYLASE Stat Lab 12/15/20 19:44 Completed BLOOD CULTURE Stat Lab 12/15/20 19:40 Received CBC W DIFF Stat Lab 12/15/20 19:44 Completed CMP Stat Lab 12/15/20 19:44 Completed CULTURE,URINE Stat Lab 12/15/20 20:07 Received INFLUENZA A+B DELON Stat Lab 12/15/20 19:44 Completed LIPASE Stat Lab 12/15/20 19:44 Completed Lactic Acid Stat Lab 12/15/20 19:36 Completed PROTIME WITH INR Stat Lab 12/15/20 19:44 Completed TROPONIN Q3H Lab 12/15/20 19:44 Completed TROPONIN Q3H Lab 12/15/20 22:30 Ordered TROPONIN Q3H Lab 12/16/20 01:30 Ordered TROPONIN Q3H Lab 12/16/20 04:30 Ordered TROPONIN Q3H Lab 12/16/20 07:30 Ordered UA W/RFX UR CULTURE Stat Lab 12/15/20 20:07 Completed Medication Summary Discontinued Medications Generic Name Dose Route Start Last Admin Trade Name Freq PRN Reason Stop Dose Admin Sodium Chloride 1,000 mls @ 999 mls/hr 12/15/20 19:15 12/15/20 20:25 Sodium Chloride 0.9% 1000 Ml IV 12/15/20 20:15 Infused .Q1H1M STA Infusion Sodium Chloride Confirm 12/15/20 19:24 Sodium Chloride 0.9% 1000 Ml Administered 12/15/20 19:25 Dose 1,000 mls @ ud .ROUTE .STK-MED ONE Lab/Rad Data: Laboratory Result Diagrams 12/15/20 19:44 12/15/20 19:44 Laboratory Results 12/15/20 12/15/20 12/15/20 Range/Units 21:29 20:07 19:44 WBC (4.0-10.5) K/mm3 RBC (4.1-5.6) M/mm3 Hgb (12.5-18.0) gm/dl Hct (42-50) % MCV (78-100) fl MCH (26-32) pg MCHC (32-36) g/dl RDW (11.5-14.0) % Plt Count (150-450) K/mm3 MPV (7.5-11.0) fl Gran % (36.0-66.0) % Eos # (Auto) (0-0.5) Absolute Lymphs (auto) (1.0-4.6) Absolute Monos (auto) (0.0-1.3) Lymphocytes % (24.0-44.0) % Monocytes % (0.0-12.0) % Eosinophils % (0.00-5.0) % Basophils % (0.0-0.4) % Absolute Granulocytes (1.4-6.9) Basophils # (0-0.4) PT (9.4-12.5) SECONDS INR (0.8-3.0) Sodium (137-145) mmol/L Potassium (3.5-5.1) mmol/L Chloride (98-107) mmol/L Carbon Dioxide (22-30) mmol/L Anion Gap (5-15) MEQ/L BUN (9-20) mg/dL Creatinine (0.66-1.25) mg/dL Estimated GFR ML/MIN Glucose (74-106) mg/dL Lactic Acid (0.4-2.0) Calcium (8.4-10.2) mg/dL Total Bilirubin (0.2-1.3) mg/dL AST (17-59) U/L ALT (0-50) U/L Alkaline Phosphatase (38-126) U/L Troponin I < 0.012 (0.000-0.034) ng/mL Serum Total Protein (6.3-8.2) g/dL Albumin (3.5-5.0) g/dL Amylase (30-110) U/L Lipase (23-300) U/L Urine Color YELLOW (YELLOW) Urine Appearance CLEAR (CLEAR) Urine pH 6.0 (5-6) Ur Specific [place] 1.017 (1.005-1.025) Urine Protein 100 (Negative) Urine Ketones NEGATIVE (NEGATIVE) Urine Blood MODERATE (0-5) Tobi/ul Urine Nitrite NEGATIVE (NEGATIVE) Urine Bilirubin NEGATIVE (NEGATIVE) Urine Urobilinogen NEGATIVE (0-1) mg/dL Ur Leukocyte Esterase NEGATIVE (NEGATIVE) Urine WBC (Auto) NONE (0-5) /HPF Urine RBC (Auto) 16-25 (0-2) /HPF U Epithel Cells (Auto) NONE (FEW) /HPF Urine Bacteria (Auto) NONE (NEGATIVE) /HPF Urine Mucus (Auto) SLIGHT (NEGATIVE) /HPF Urine Culture Reflexed YES (NO) Urine Glucose NEGATIVE (NEGATIVE) mg/dL Influenza Type A Ag (NEGATIVE) Influenza Type B Ag (NEGATIVE) SARS-CoV-2 (PCR) NEGATIVE (NEGATIVE) 12/15/20 12/15/20 12/15/20 Range/Units 19:44 19:44 19:44 WBC (4.0-10.5) K/mm3 RBC (4.1-5.6) M/mm3 Hgb (12.5-18.0) gm/dl Hct (42-50) % MCV (78-100) fl MCH (26-32) pg MCHC (32-36) g/dl RDW (11.5-14.0) % Plt Count (150-450) K/mm3 MPV (7.5-11.0) fl Gran % (36.0-66.0) % Eos # (Auto) (0-0.5) Absolute Lymphs (auto) (1.0-4.6) Absolute Monos (auto) (0.0-1.3) Lymphocytes % (24.0-44.0) % Monocytes % (0.0-12.0) % Eosinophils % (0.00-5.0) % Basophils % (0.0-0.4) % Absolute Granulocytes (1.4-6.9) Basophils # (0-0.4) PT 13.7 H (9.4-12.5) SECONDS INR 1.16 (0.8-3.0) Sodium 138 (137-145) mmol/L Potassium 3.6 (3.5-5.1) mmol/L Chloride 103 (98-107) mmol/L Carbon Dioxide 22 (22-30) mmol/L Anion Gap 16.1 H (5-15) MEQ/L BUN 15 (9-20) mg/dL Creatinine 1.27 H (0.66-1.25) mg/dL Estimated GFR 58.9 ML/MIN Glucose 150 H (74-106) mg/dL Lactic Acid (0.4-2.0) Calcium 9.4 (8.4-10.2) mg/dL Total Bilirubin 0.90 (0.2-1.3) mg/dL AST 24 (17-59) U/L ALT 14 (0-50) U/L Alkaline Phosphatase 64 (38-126) U/L Troponin I (0.000-0.034) ng/mL Serum Total Protein 7.6 (6.3-8.2) g/dL Albumin 4.6 (3.5-5.0) g/dL Amylase 60 (30-110) U/L Lipase 69 (23-300) U/L Urine Color (YELLOW) Urine Appearance (CLEAR) Urine pH (5-6) Ur Specific [place] (1.005-1.025) Urine Protein (Negative) Urine Ketones (NEGATIVE) Urine Blood (0-5) Tobi/ul Urine Nitrite (NEGATIVE) Urine Bilirubin (NEGATIVE) Urine Urobilinogen (0-1) mg/dL Ur Leukocyte Esterase (NEGATIVE) Urine WBC (Auto) (0-5) /HPF Urine RBC (Auto) (0-2) /HPF U Epithel Cells (Auto) (FEW) /HPF Urine Bacteria (Auto) (NEGATIVE) /HPF Urine Mucus (Auto) (NEGATIVE) /HPF Urine Culture Reflexed (NO) Urine Glucose (NEGATIVE) mg/dL Influenza Type A Ag (NEGATIVE) Influenza Type B Ag (NEGATIVE) SARS-CoV-2 (PCR) (NEGATIVE) 12/15/20 12/15/20 12/15/20 Range/Units 19:44 19:44 19:36 WBC 10.2 (4.0-10.5) K/mm3 RBC 5.10 (4.1-5.6) M/mm3 Hgb 15.1 (12.5-18.0) gm/dl Hct 46.2 (42-50) % MCV 90.6 (78-100) fl MCH 29.6 (26-32) pg MCHC 32.7 (32-36) g/dl RDW 14.2 H (11.5-14.0) % Plt Count 131 L (150-450) K/mm3 MPV 11.3 H (7.5-11.0) fl Gran % 86.9 H (36.0-66.0) % Eos # (Auto) 0.02 (0-0.5) Absolute Lymphs (auto) 0.81 L (1.0-4.6) Absolute Monos (auto) 0.49 (0.0-1.3) Lymphocytes % 7.9 L (24.0-44.0) % Monocytes % 4.8 (0.0-12.0) % Eosinophils % 0.2 (0.00-5.0) % Basophils % 0.2 (0.0-0.4) % Absolute Granulocytes 8.85 H (1.4-6.9) Basophils # 0.02 (0-0.4) PT (9.4-12.5) SECONDS INR (0.8-3.0) Sodium (137-145) mmol/L Potassium (3.5-5.1) mmol/L Chloride (98-107) mmol/L Carbon Dioxide (22-30) mmol/L Anion Gap (5-15) MEQ/L BUN (9-20) mg/dL Creatinine (0.66-1.25) mg/dL Estimated GFR ML/MIN Glucose (74-106) mg/dL Lactic Acid 1.9 (0.4-2.0) Calcium (8.4-10.2) mg/dL Total Bilirubin (0.2-1.3) mg/dL AST (17-59) U/L ALT (0-50) U/L Alkaline Phosphatase (38-126) U/L Troponin I (0.000-0.034) ng/mL Serum Total Protein (6.3-8.2) g/dL Albumin (3.5-5.0) g/dL Amylase (30-110) U/L Lipase (23-300) U/L Urine Color (YELLOW) Urine Appearance (CLEAR) Urine pH (5-6) Ur Specific [place] (1.005-1.025) Urine Protein (Negative) Urine Ketones (NEGATIVE) Urine Blood (0-5) Tobi/ul Urine Nitrite (NEGATIVE) Urine Bilirubin (NEGATIVE) Urine Urobilinogen (0-1) mg/dL Ur Leukocyte Esterase (NEGATIVE) Urine WBC (Auto) (0-5) /HPF Urine RBC (Auto) (0-2) /HPF U Epithel Cells (Auto) (FEW) /HPF Urine Bacteria (Auto) (NEGATIVE) /HPF Urine Mucus (Auto) (NEGATIVE) /HPF Urine Culture Reflexed (NO) Urine Glucose (NEGATIVE) mg/dL Influenza Type A Ag NEGATIVE (NEGATIVE) Influenza Type B Ag NEGATIVE (NEGATIVE) SARS-CoV-2 (PCR) (NEGATIVE) - Progress Progress: unchanged Air Movement: good Blood Culture(s) Obtained: Yes Antibiotics given: Yes - Departure Departure Disposition: Home Clinical Impression: Pneumonia Condition: Stable Critical Care Time: No Referrals: ELIDIA OLIVAS MD [Primary Care Provider] - Instructions: Pneumonia, Adult (DC) Prescriptions: Cefdinir 300 mg PO BID 7 Days #20 cap Cefdinir 300 mg PO BID 7 Days #14 cap
[2020-12-15] MEDS ORDERED: ROCEPHIN 1 Gm-D5w 50 ml Bag** 1 G/50 ML IVPB IV STA (22:51)
[2020-12-15] MEDS ORDERED: ROCEPHIN 1 Gm-D5w 50 ml Bag** 1 G/50 ML IVPB IV ONE (22:52)
== END 2020-12-15 23:35 | disposition home or self-care (01) ==
LOC: ED 19:06
DX: J18.9 Pneumonia, unspecified organism (principal); R53.1 Weakness; R51.9 Headache, unspecified; R05 Cough; R63.0 Anorexia; R11.2 Nausea with vomiting, unspecified; Z79.899 Other long term (current) drug therapy; Z79.01 Long term (current) use of anticoagulants
CPT/HCPCS: 36000; 36415; 71045; 80053; 81001; 82150; 83605; 83690; 84484; 85025; 85610; 87040; 87086; 87400; 93005; 94760; 99284; U0003; J0696

== ENCOUNTER 2023-08-01 23:46 | Observation (INO) | payer MEDICARE ==
--- NOTE | 2023-08-01 23:56 | ERPHSYRPT ---
- History of Present Illness Historian: patient, EMS Exam Limitations: no limitations Timing/Duration: today, hour(s) (1.5h [employer]) Activities at Onset: rest Hx Tetanus, Diphtheria Vaccination/Date Given: Yes Hx Influenza Vaccination/Date Given: Yes Hx Pneumococcal Vaccination/Date Given: No <SAAR BRADSHAW - Last Filed: 08/02/23 07:00> <WOO MARCUS - Last Filed: 08/02/23 07:31> - History of Present Illness Time Seen by Provider: 08/01/23 23:55 Physician History: 77yo m presents via EMS for vomiting, diarrhea, body aches that started 90min prior to arrival. Pt reports 3 episodes of diarrhea and 2 episodes of vomiting at home before calling EMS. Pt's states he was complaining of CUMMINGS and body aches before the vomiting and diarrhea began. Pt denies eating any new foods for dinner, denies any recent drug or alcohol consumption. Pt states his had covid last month and had similar sx, is worried he also has it. Pt currently denies cp, soa, CUMMINGS, vision changes. Pt did report some chest discomfort initially but states it has resolved. (SARA BRADSHAW) Allergies/Adverse Reactions: No Known Drug Allergies Allergy (Verified 08/01/23 23:52) Home Medications: Omeprazole 20 MG [Prilosec 20 mg] 20 mg PO DAILY 11/08/12 [History] Amlodipine Besylate 5 mg [Norvasc 5 mg] 5 mg PO DAILY 10/30/16 [History] Apixaban [Eliquis] 5 mg PO BID 10/30/16 [History] Pravastatin Sodium 20 mg PO DAILY 12/22/18 [History] Metoprolol Tartrate 75 mg PO BID 12/15/20 [History] Losartan Potassium 50 mg [Cozaar 50 MG] 50 mg PO DAILY 08/02/23 [History] Lutein 20 mg PO DAILY 08/02/23 [History] - Review of Systems Constitutional: Chills Respiratory: No No Symptoms, No Cough, No Dyspnea, No Wheezing Cardiac: Chest Pain, No Edema, No Palpitations Abdominal/Gastrointestinal: Nausea, Vomiting, Diarrhea, No Hematemesis, No Hematochezia, No Melena Genitourinary Symptoms: Dysuria Musculoskeletal: Back Pain (low back, hips) <SARA BRADSHAW Filed: 08/02/23 07:00> - Past Medical History Pertinent Past Medical History: Yes Neurological History: No Pertinent History ENT History: No Pertinent History Cardiac History: Angina, Arrhythmia, High Cholesterol, Hypertension Respiratory History: No Pertinent History Endocrine Medical History: No Pertinent History Musculoskeletal History: Other GI Medical History: No Pertinent History History: No Pertinent History Psycho-Social History: No Pertinent History Male Reproductive Disorders: No Pertinent History Other Medical History: mild coronary blockage without intervention. Hx Laminectomy L4-L5 back surgery in 1990. - Past Surgical History Past Surgical History: Yes Neuro Surgical History: No Pertinent History Cardiac: Cardiac Catheterization Respiratory: No Pertinent History Gastrointestinal: No Pertinent History Genitourinary: No Pertinent History Musculoskeletal: Other Male Surgical History: No Pertinent History Other Surgical History: T&A, BACK SURGERY - Social History Smoking Status: Current every day smoker How long have you smoked: 50 yrs Exposure to second hand smoke: No Drug Use: none Patient Lives Alone: No () <SARA BRADSHAW - Filed: 08/02/23 07:00> - Physical Exam General Appearance: no apparent distress, alert Respiratory Exam: normal breath sounds, lungs clear, airway intact, No chest tenderness, No respiratory distress, No diminished breath sounds, No crackles/rales, No wheezing Cardiovascular Exam: regular rate/rhythm, normal heart sounds, normal peripheral pulses, capillary refill <2 sec Gastrointestinal/Abdomen Exam: soft, normal bowel sounds, No tenderness, No distention, No guarding Back Exam: No CVA tenderness, No vertebral tenderness, No muscle spasm, No point tenderness Neurologic Exam: alert, oriented x 3, cooperative SpO2 Interpretation: normal SpO2: 96 O2 Delivery: Room Air <SARA BRADSHAW Filed: 08/02/23 07:00> - Nursing Vital Signs Nursing Vital Signs: Initial Vital Signs Temperature 99.3 F 08/01/23 23:50 Pulse Rate 90 08/01/23 23:50 Respiratory Rate 20 08/01/23 23:50 Blood Pressure 159/82 08/01/23 23:50 O2 Sat by Pulse Oximetry 96 08/01/23 23:50 Pain Scale Pain Intensity [Lower Back] 9 Pain Intensity 2 Ordered Tests: Active Orders 24 hr Category Date Time Status Telemetry q4h Care 08/02/23 01:22 Active Telemetry q4h Care 08/02/23 06:55 Active ABDOMEN AND PELVIS W/0 CONTRAS [CT] Stat Exams 08/02/23 02:41 Completed CHEST 1 VIEW (PORTABLE) Stat Exams 08/02/23 00:50 Taken BMP Stat Lab 08/02/23 04:52 Completed Lactic Acid Routine Lab 08/02/23 06:14 Completed Lactic Acid Stat Lab 08/02/23 00:07 Completed TROPONIN Q4H Lab 08/02/23 00:30 Completed TROPONIN Q4H Lab 08/02/23 04:52 Completed TROPONIN Q4H Lab 08/02/23 09:00 Ordered UA W/RFX UR CULTURE Stat Lab 08/02/23 01:50 Completed Medication Summary Generic Name Dose Route Start Last Admin Trade Name Freq PRN Reason Stop Dose Admin Sodium Chloride 1,000 mls @ 100 mls/hr 08/02/23 03:30 08/02/23 03:26 Sodium Chloride 0.9% 1000 Ml IV 09/01/23 03:29 100 mls/hr .Q10H ERICA Administration Potassium Chloride 20 meq in 100 mls @ 50 mls/hr 08/02/23 06:55 08/02/23 07:25 Potassium Chloride 20 Meq In Water 100ml IV 08/02/23 08:54 50 mls/hr STAT ONE Administration Discontinued Medications Generic Name Dose Route Start Last Admin Trade Name Freq PRN Reason Stop Dose Admin Sodium Chloride 1,000 mls @ 999 mls/hr 08/01/23 23:56 08/02/23 01:58 Sodium Chloride 0.9% 1000 Ml IV 08/02/23 00:56 Infused .Q1H1M STA Infusion Sodium Chloride Confirm 08/02/23 00:07 Sodium Chloride 0.9% 1000 Ml Administered 08/02/23 00:08 Dose 1,000 mls @ ud .ROUTE .STK-MED ONE Acetaminophen 1,000 mg in 100 mls @ 400 mls/hr 08/02/23 00:54 08/02/23 01:23 Ofirmev IV 08/02/23 01:08 400 mls/hr 1HRPRIOR ONE Administration Acetaminophen Confirm 08/02/23 01:13 Ofirmev Administered 08/02/23 01:14 Dose 100 mls @ ud IV .STK-MED ONE Potassium Chloride 20 meq in 100 mls @ 50 mls/hr 08/02/23 01:22 08/02/23 01:56 Potassium Chloride 20 Meq In Water 100ml IV 08/02/23 03:21 50 mls/hr STAT ONE Administration Sodium Chloride 1,000 mls @ 999 mls/hr 08/02/23 01:53 08/02/23 03:40 Sodium Chloride 0.9% 1000 Ml IV 08/02/23 02:53 Infused .Q1H1M STA Infusion Sodium Chloride Confirm 08/02/23 01:54 Sodium Chloride 0.9% 1000 Ml Administered 08/02/23 01:55 Dose 1,000 mls @ ud .ROUTE .STK-MED ONE Potassium Chloride Confirm 08/02/23 01:54 Potassium Chloride 20 Meq In Water 100ml Administered 08/02/23 01:55 Dose 100 mls @ ud IV .STK-MED ONE Potassium Chloride Confirm 08/02/23 07:24 Potassium Chloride 20 Meq In Water 100ml Administered 08/02/23 07:25 Dose 100 mls @ ud IV .STK-MED ONE Lab/Rad Data: Laboratory Result Diagrams 08/01/23 00:35 08/02/23 04:52 Laboratory Results 08/02/23 08/02/23 08/02/23 Range/Units 06:14 04:52 04:52 WBC (4.0-10.5) x10^3/uL RBC (4.1-5.6) x10^6/uL Hgb (12.5-18.0) g/dL Hct (42-50) % MCV (78-100) fL MCH (26-32) pg MCHC (32-36) g/dL RDW (11.5-14.0) % Plt Count (150-450) x10^3/uL MPV (7.5-11.0) fL Gran % (36.0-66.0) % Immature Gran % (Auto) (0.00-0.4) % Nucleat RBC Rel Count (0.00-0.1) % Eos # (Auto) (0-0.5) x10^3/uL Immature Gran # (Auto) (0.00-0.03) x10^3u/L Absolute Lymphs (auto) (1.0-4.6) x10^3/uL Absolute Monos (auto) (0.0-1.3) x10^3/uL Absolute Nucleated RBC (0.00-0.01) x10^3u/L Lymphocytes % (24.0-44.0) % Monocytes % (0.0-12.0) % Eosinophils % (0.00-5.0) % Basophils % (0.0-0.4) % Absolute Granulocytes (1.4-6.9) x10^3/uL Basophils # (0-0.4) x10^3/uL Sodium 141 (135-145) mmol/L Potassium 3.4 L (3.5-5.1) mmol/L Chloride 112 H (98-107) mmol/L Carbon Dioxide 23 (22-30) mmol/L Anion Gap 9.1 (5-15) MEQ/L BUN 19 (9-20) mg/dL Creatinine 1.50 H (0.66-1.25) mg/dL Estimated GFR 48.0 ML/MIN Glucose 107 H (74-106) mg/dL Lactic Acid 3.6 H (0.4-2.0) Calcium 8.3 L (8.4-10.2) mg/dL Total Bilirubin (0.2-1.3) mg/dL AST (17-59) U/L ALT (0-50) U/L Alkaline Phosphatase (38-126) U/L Troponin I < 0.012 (0.000-0.033) ng/mL Serum Total Protein (6.3-8.2) g/dL Albumin (3.5-5.0) g/dL Lipase (23-300) U/L Urine Color (Yellow) Urine Appearance (Clear) Urine pH (4.6-8.0) Ur Specific Gillett (1.005-1.030) Urine Protein (Negative) Urine Glucose (UA) (Negative) mg/dL Urine Ketones (Negative) Urine Blood (Negative) Urine Nitrite (Negative) Urine Bilirubin (Negative) Urine Urobilinogen (0.2) mg/dL Ur Leukocyte Esterase (Negative) U Hyaline Cast (Auto) (0-2) /LPF Urine Microscopic RBC (0-5) /HPF Urine Microscopic WBC (0-5) /HPF Ur Epithelial Cells (None Seen) /HPF Urine Bacteria (None Seen) /HPF Urine Culture Reflexed (NO) Influenza Type A Ag (NEGATIVE) Influenza Type B Ag (NEGATIVE) RSV (PCR) (NEGATIVE) SARS-CoV-2 (PCR) (NEGATIVE) 08/02/23 08/02/23 08/02/23 Range/Units 01:50 00:30 00:07 WBC (4.0-10.5) x10^3/uL RBC (4.1-5.6) x10^6/uL Hgb (12.5-18.0) g/dL Hct (42-50) % MCV (78-100) fL MCH (26-32) pg MCHC (32-36) g/dL RDW (11.5-14.0) % Plt Count (150-450) x10^3/uL MPV (7.5-11.0) fL Gran % (36.0-66.0) % Immature Gran % (Auto) (0.00-0.4) % Nucleat RBC Rel Count (0.00-0.1) % Eos # (Auto) (0-0.5) x10^3/uL Immature Gran # (Auto) (0.00-0.03) x10^3u/L Absolute Lymphs (auto) (1.0-4.6) x10^3/uL Absolute Monos (auto) (0.0-1.3) x10^3/uL Absolute Nucleated RBC (0.00-0.01) x10^3u/L Lymphocytes % (24.0-44.0) % Monocytes % (0.0-12.0) % Eosinophils % (0.00-5.0) % Basophils % (0.0-0.4) % Absolute Granulocytes (1.4-6.9) x10^3/uL Basophils # (0-0.4) x10^3/uL Sodium (135-145) mmol/L Potassium (3.5-5.1) mmol/L Chloride (98-107) mmol/L Carbon Dioxide (22-30) mmol/L Anion Gap (5-15) MEQ/L BUN (9-20) mg/dL Creatinine (0.66-1.25) mg/dL Estimated GFR ML/MIN Glucose (74-106) mg/dL Lactic Acid 4.5 H (0.4-2.0) Calcium (8.4-10.2) mg/dL Total Bilirubin (0.2-1.3) mg/dL AST (17-59) U/L ALT (0-50) U/L Alkaline Phosphatase (38-126) U/L Troponin I < 0.012 (0.000-0.033) ng/mL Serum Total Protein (6.3-8.2) g/dL Albumin (3.5-5.0) g/dL Lipase (23-300) U/L Urine Color Yellow (Yellow) Urine Appearance Clear (Clear) Urine pH 5.5 (4.6-8.0) Ur Specific Gillett 1.015 (1.005-1.030) Urine Protein Trace A (Negative) Urine Glucose (UA) Negative (Negative) mg/dL Urine Ketones Negative (Negative) Urine Blood Negative (Negative) Urine Nitrite Negative (Negative) Urine Bilirubin Negative (Negative) Urine Urobilinogen 0.2 (0.2) mg/dL Ur Leukocyte Esterase Negative (Negative) U Hyaline Cast (Auto) 3-5 A (0-2) /LPF Urine Microscopic RBC 0-2 (0-5) /HPF Urine Microscopic WBC 0-2 (0-5) /HPF Ur Epithelial Cells None Seen (None Seen) /HPF Urine Bacteria None Seen (None Seen) /HPF Urine Culture Reflexed NO (NO) Influenza Type A Ag (NEGATIVE) Influenza Type B Ag (NEGATIVE) RSV (PCR) (NEGATIVE) SARS-CoV-2 (PCR) (NEGATIVE) 08/01/23 08/01/23 08/01/23 Range/Units 00:35 00:35 00:35 WBC 5.8 (4.0-10.5) x10^3/uL RBC 5.11 (4.1-5.6) x10^6/uL Hgb 15.4 (12.5-18.0) g/dL Hct 46.0 (42-50) % MCV 90.0 (78-100) fL MCH 30.1 (26-32) pg MCHC 33.5 (32-36) g/dL RDW 13.7 (11.5-14.0) % Plt Count 120 L (150-450) x10^3/uL MPV 10.6 (7.5-11.0) fL Gran % 92.9 H (36.0-66.0) % Immature Gran % (Auto) 1.6 H (0.00-0.4) % Nucleat RBC Rel Count 0.0 (0.00-0.1) % Eos # (Auto) 0.01 (0-0.5) x10^3/uL Immature Gran # (Auto) 0.09 H (0.00-0.03) x10^3u/L Absolute Lymphs (auto) 0.26 L (1.0-4.6) x10^3/uL Absolute Monos (auto) 0.03 (0.0-1.3) x10^3/uL Absolute Nucleated RBC 0.00 (0.00-0.01) x10^3u/L Lymphocytes % 4.5 L (24.0-44.0) % Monocytes % 0.5 (0.0-12.0) % Eosinophils % 0.2 (0.00-5.0) % Basophils % 0.3 (0.0-0.4) % Absolute Granulocytes 5.35 (1.4-6.9) x10^3/uL Basophils # 0.02 (0-0.4) x10^3/uL Sodium 141 (135-145) mmol/L Potassium 3.4 L (3.5-5.1) mmol/L Chloride 108 H (98-107) mmol/L Carbon Dioxide 22 (22-30) mmol/L Anion Gap 14.5 (5-15) MEQ/L BUN 21 H (9-20) mg/dL Creatinine 1.40 H (0.66-1.25) mg/dL Estimated GFR 52.1 ML/MIN Glucose 112 H (74-106) mg/dL Lactic Acid (0.4-2.0) Calcium 9.2 (8.4-10.2) mg/dL Total Bilirubin 0.60 (0.2-1.3) mg/dL AST 27 (17-59) U/L ALT 29 (0-50) U/L Alkaline Phosphatase 67 (38-126) U/L Troponin I (0.000-0.033) ng/mL Serum Total Protein 7.5 (6.3-8.2) g/dL Albumin 4.1 (3.5-5.0) g/dL Lipase 85 (23-300) U/L Urine Color (Yellow) Urine Appearance (Clear) Urine pH (4.6-8.0) Ur Specific Gillett (1.005-1.030) Urine Protein (Negative) Urine Glucose (UA) (Negative) mg/dL Urine Ketones (Negative) Urine Blood (Negative) Urine Nitrite (Negative) Urine Bilirubin (Negative) Urine Urobilinogen (0.2) mg/dL Ur Leukocyte Esterase (Negative) U Hyaline Cast (Auto) (0-2) /LPF Urine Microscopic RBC (0-5) /HPF Urine Microscopic WBC (0-5) /HPF Ur Epithelial Cells (None Seen) /HPF Urine Bacteria (None Seen) /HPF Urine Culture Reflexed (NO) Influenza Type A Ag NEGATIVE (NEGATIVE) Influenza Type B Ag NEGATIVE (NEGATIVE) RSV (PCR) NEGATIVE (NEGATIVE) SARS-CoV-2 (PCR) NEGATIVE (NEGATIVE) - Progress Progress: pain not gone completely Will see patient in: hospital (observation) Counseled pt/family regarding: lab results, diagnosis, need for follow-up, rad results <SARA BRADSHAW - Last Filed: 08/02/23 07:00> <WOO MARCUS - Last Filed: 08/02/23 07:31> - Progress Progress Note: 08/02/23 06:28 pt continues to complain of body aches continue to complain of weakness - states he does not think he is strong enough to go home because he feels too bad pt has been vitally stable throughout stay cr elevated at 1.5 lactic elevated x 2 trop wnl x 2 K 3.4 following 20meq K rider in NS plan to admit for obs for continued IV fluids and pain management 08/02/23 06:33 08/02/23 07:00 I discussed pt case and turned over pt care to Dr Marcus at 0700 (SARA BRADSHAW) 08/02/23 07:28 Patient is checked out to me at shift change from Dr. Roberts with pending hospitalist callback. Patient presented with flulike symptoms with workup showing normal white count, chemistry some CRYSTAL with a lactate of 4.5 initially and after fluids is 3.6. CT abdomen pelvis negative for any acute abdominal pelvic findings. Patient is on room air. Afebrile with negative COVID flu and RSV. No obvious focus of infection. Possibly viral gastroenteritis/viral syndrome. Discussed with Dr. Jones hospitalist, reviewed history, workup and agreed with admission. (WOO MARCUS) Medical Desision Making - Risk of complications The pt has a high risk of morbidity or mortality based on: Decision regarding hospitilization or escalation of hosp level of care <SARA BRADSHAW - Last Filed: 08/02/23 07:00> - Discussion of managment Care discussed with:: hospitalist (Dr. Jones) Reviewed:: Test results Agreed on:: Treatment plan, place in obs Will see patient: in hospital - Diagnostic Testing Diagnostic test were ordered, analyzed, and reviewed by me: Yes Radiological Interpretation: Reviewed by me <WOO MARCUS - Last Filed: 08/02/23 07:31> - Departure Departure Disposition: Observation Critical Care Time: No <SARA BRADSHAW - Last Filed: 08/02/23 07:00> <WOO MARCUS - Last Filed: 08/02/23 07:31> - Departure Clinical Impression: Hypokalemia, Viral gastroenteritis, Lactic acidosis Vomiting Qualifiers: Vomiting type: unspecified Nausea presence: unspecified Qualified Code(s): R11.10 - Vomiting, unspecified Diarrhea Qualifiers: Diarrhea type: unspecified type Qualified Code(s): R19.7 - Diarrhea, unspecified Condition: Stable Referrals: ELIDIA OLIVAS MD [Primary Care Provider] - Follow up/PCP as directed
[2023-08-02] MEDS ORDERED: Sodium Chloride 0.9% 1000 ML 1,000 ML ONE ×2 (00:07→01:54)
[2023-08-02 00:38] LABS: Absolute Neutrophil Ct (ANC) 5.35 x10^3/uL (1.4-6.9); BASOPHIL % 0.3 % (0.0-0.4); Basophil (Absolute #) 0.02 x10^3/uL (0-0.4); Eosinophil % 0.2 % (0.00-5.0); Eosinophil (Absolute #) 0.01 x10^3/uL (0-0.5); Hemoglobin 15.4 g/dL (12.5-18.0); IMMATURE GRAN # 0.09 x10^3u/L (0.00-0.03); IMMATURE GRAN % 1.6 % (0.00-0.4); Lymphocyte (Absolute #) 0.26 x10^3/uL (1.0-4.6); Lymphocytes % 4.5 % (24.0-44.0); Mean Corpuscular Hemoglobin 30.1 pg (26-32); Mean Corpuscular Hgb Concent. 33.5 g/dL (32-36); Mean Platelet Volume 10.6 fL (7.5-11.0); Monocyte (Absolute #) 0.03 x10^3/uL (0.0-1.3); Monocytes % 0.5 % (0.0-12.0); Neutrophil % 92.9 % (36.0-66.0); Platelet Count 120 x10^3/uL (150-450); Red Blood Count 5.11 x10^6/uL (4.1-5.6); Red Cell Distribution Width 13.7 % (11.5-14.0); White Blood Count 5.8 x10^3/uL (4.0-10.5)
[2023-08-02] MEDS: Sodium Chloride 0.9% 1000 ML 1,000 ML IV STA ×5 (00:39→16:19)
[2023-08-02 00:51] LABS: ALBUMIN 4.1 g/dL (3.5-5.0); ANION GAP 14.5 MEQ/L (5-15); BILIRUBIN,TOTAL 0.6 mg/dL (0.2-1.3); Calcium 9.2 mg/dL (8.4-10.2); Creatinine 1 1.4 mg/dL (0.66-1.25); EST GLOMERULAR FILTRATION RATE 52.1 ML/MIN; Potassium 3.4 mmol/L (3.5-5.1); Total Protein 7.5 g/dL (6.3-8.2)
[2023-08-02] MEDS ORDERED: OFIRMEV 100 ML IV ONE (01:13)
[2023-08-02 01:14] LABS: INFLUENZA A NEGATIVE (NEGATIVE); INFLUENZA B NEGATIVE (NEGATIVE); RESPIRATORY SYNCTIAL VIRUS NEGATIVE (NEGATIVE); SARS-CoV-2 Xpert Express NEGATIVE (NEGATIVE)
[2023-08-02] MEDS: OFIRMEV 1,000 MG/100 ML ML IV ONE (01:23)
[2023-08-02] MEDS ORDERED: POTASSIUM CHLORIDE 20 mEq IN WATER 100ML 100 ML IV ONE ×2 (01:54→07:24)
[2023-08-02] MEDS: POTASSIUM CHLORIDE 20 mEq IN WATER 100ML 20 MEQ/100 ML BAG IV ONE ×2 (01:56→07:25)
[2023-08-02 02:13] LABS: ADD URINE CULTURE? NO (NO); Appearance Clear (Clear); Bacteria None Seen /HPF (None Seen); Bilirubin Negative (Negative); Blood Negative (Negative); Epithelial Cells None Seen /HPF (None Seen); Glucose, Urine Negative (Negative); Ketones Negative (Negative); Leukocyte Esterase Negative (Negative); Nitrite Negative (Negative); Ph 5.5 (4.6-8.0); Protein,Urine Dip Trace (Negative); RBC 0-2 /HPF (0-5); Specific Gravity 1.015 (1.005-1.030); Urobilinogen 0.2 mg/dL (0.2); WBC 0-2 /HPF (0-5)
[2023-08-02] MEDS: Sodium Chloride 0.9% 1000 ML 1,000 ML IV SCH (03:26)
--- NOTE | 2023-08-02 04:23 | XRAY ---
CLINICAL HISTORY: kidney stone r/o COMPARISON: None. TECHNIQUE: CT of the abdomen and pelvis was performed with axial images as well as sagittal and coronal reconstruction images without intravenous contrast. One of the following dose reduction techniques was utilized for this exam: Automated exposure control, adjustment of the mA and/or kV according to patient size, and use of iterative reconstruction. FINDINGS: Abdomen: The liver is normal in size and measures 14 cm. Right hepatic lobe segment VII few small hypodense focal lesions; the largest measures about 6 mm. The intrahepatic biliary radicals and the bile ducts are normal. Normal appearance of the appendix with clear surrounding fat planes. The spleen, pancreas, and adrenal glands are unremarkable. A small splenule is seen. Both kidneys are of average size and shape with no stones or back pressure changes. Bilateral christy-nephric fat stranding is seen. Left renal cortical cysts are seen, the largest is exophytic and measures about 2.8 x3.6 cm in axial dimensions. The gallbladder is normal. No pericholecystic collection or radio-dense calculi in the gall bladder. The ascending colon, the transverse colon, and visualized small bowel loops are unremarkable. There is no evidence of significant enlargement of the mesenteric or retroperitoneal lymph nodes. Pelvis: The urinary bladder is unremarkable. Enlarged prostate. Diverticulosis of the sigmoid and descending colon with no CT evidence of diverticulitis. No evidence of pelvic lymphadenopathy. The osseous structures in the pelvis show degenerative changes in the lumbar spine and both hip joints. IMPRESSION: 1. No CT evidence of renal or ureteric stones. 2. Right hepatic lobe segment VII few small hypodense focal lesions; likely cysts. U/S is advised. 3. Enlarged prostate. 4. Diverticulosis of the sigmoid and descending colon with no CT evidnece of diverticulitis. Electronically Signed by: Julio Tabares MD. (08/02/2023 04:19:33 EDT)
[2023-08-02 06:02] LABS: ANION GAP 9.1 MEQ/L (5-15); Calcium 8.3 mg/dL (8.4-10.2); Creatinine 1 1.5 mg/dL (0.66-1.25); Potassium 3.4 mmol/L (3.5-5.1)
--- NOTE | 2023-08-02 07:47 | XRAY ---
Indication: Short of breath. Comparison: December 15, 2020 Portable chest remains inflated and clear. Heart not enlarged for AP portable technique. Bony thorax intact again with osteopenia, mild degenerative changes, and anterior chest electronic monitoring device. Impression: Continued nonacute chest with chronic features.
[2023-08-02] MEDS ORDERED: MEDICATION INTERVENTION MC SCH (09:45)
[2023-08-02 09:47] LABS: Hematocrit 42.5 % (42-50); Hemoglobin 13.8 g/dL (12.5-18.0); Mean Cell Volume 92.4 fL (78-100); Mean Corpuscular Hgb Concent. 32.5 g/dL (32-36); Mean Platelet Volume 11.3 fL (7.5-11.0); Platelet Count 102 x10^3/uL (150-450); Red Cell Distribution Width 14.1 % (11.5-14.0); White Blood Count 21.1 x10^3/uL (4.0-10.5)
[2023-08-02] MEDS ORDERED: NON-FORMULARY ITEM (Omeprazole 20 Mg [Prilosec 20 Mg] 20 MG Capsule.Dr) PO SCH (10:00)
[2023-08-02] MEDS ORDERED: LUTEIN 20 MG PO SCH (10:00)
[2023-08-02] MEDS ORDERED: NON-FORMULARY ITEM (Metoprolol Tartrate [Metoprolol Tartrate] 75 MG Tablet) PO SCH (10:00)
[2023-08-02] MEDS ORDERED: NON-FORMULARY ITEM (Apixaban*** [Eliquis 5 Mg Tablet***] 5 MG Tablet) PO SCH (10:00)
[2023-08-02] MEDS: NORVASC 5 MG PO SCH (10:31)
[2023-08-02] MEDS: ELIQUIS 2.5 MG TABLET PO SCH (10:31)
[2023-08-02] MEDS: Lopressor 25MG Tab PO SCH (10:31)
[2023-08-02] MEDS: Protonix 40MG Tablet PO SCH (10:31)
[2023-08-02] MEDS: TYLENOL 325 MG PO PRN (10:32)
[2023-08-02] MEDS: Cozaar 50 MG PO SCH (10:32)
[2023-08-02] MEDS: MAG-OX 400 PO SCH (13:00)
--- NOTE | 2023-08-02 13:12 | PCM.HP ---
History of Present Illness - Chief Complaint Chief Complaint: Viral gastroenteritis/viral syndrome Date: 08/02/23 History of Present Illness: is a 77 year old male with pmhx of HTN, A-fib on Eliquis, GERD, and hyperlipidemia. Pt states that last night be began having abd. pain, SOB, and diarrhea, H/A, body aches, and joint pain. He came to the ER by EMS on 07/31 as sxs were not improving. He and his ate chicken and noodles with mashed potatoes that she made. She has not been ill. He denies being around anyone that is ill. He was negative in ER for Flu/COVID/RSV. LA was 4.5 on admission, fluid boluses provided. at 6:14 am LA was 3.6 no fluid bolus gave in ER so when pt arrived to floor this was started. Repeat lactate at 12:46 2.9, trending down, repeat fluid bolus ordered. Pt has a temp of 99.7. Anbd pain and SOB has resolved. He continues to c/o joint pain including BL hips, sacoiliac, BL Knee, and shoulders. He also has a H/A. He has no abd pain, N/V/D. last time of diarrhea was 9:30 last night. K+ 3.4 and replaced. WBC 21.1- 2:2 gastroen teritis, and related side effects. He denies CP and SOB at this time. - Review of Systems Constitutional: Fever, No Chills Eyes: No Symptoms Ears, Nose, & Throat: No Symptoms Respiratory: No Cough, No Short Of Breath Cardiac: No Chest Pain, No Edema, No Syncope Abdominal/Gastrointestinal: No Abdominal Pain, No Nausea, No Vomiting, No Diarrhea Genitourinary Symptoms: No Dysuria Musculoskeletal: Back Pain, Joint Pain, No Neck Pain Skin: No Rash Neurological: Headache, No Dizziness, No Focal Weakness, No Sensory Changes Psychological: No Symptoms, Emotional Lability Endocrine: No Symptoms Hematologic/Lymphatic: No Symptoms Immunological/Allergic: No Symptoms Medications & Allergies Home Medications: Home Medication List Omeprazole 20 MG [Prilosec 20 mg] 20 mg PO DAILY 11/08/12 [History Confirmed 08/02/23] Amlodipine Besylate 5 mg [Norvasc 5 mg] 5 mg PO DAILY 10/30/16 [History Confirmed 08/02/23] Apixaban [Eliquis] 5 mg PO BID 10/30/16 [History Confirmed 08/02/23] Pravastatin Sodium 20 mg PO DAILY 12/22/18 [History Confirmed 08/02/23] Metoprolol Tartrate 75 mg PO BID 12/15/20 [History Confirmed 08/02/23] Losartan Potassium 50 mg [Cozaar 50 MG] 50 mg PO DAILY 08/02/23 [History Confirmed 08/02/23] Lutein 20 mg PO DAILY 08/02/23 [History Confirmed 08/02/23] Allergies/Adverse Reactions: Allergies Allergy/AdvReac Type Severity Reaction Status Date / Time No Known Drug Allergies Allergy Verified 08/01/23 23:52 - Past Medical History Past Medical History: Yes Neurological History: No Pertinent History ENT History: No Pertinent History Cardiac History: Angina, Arrhythmia, High Cholesterol, Hypertension Respiratory History: No Pertinent History Endocrine Medical History: No Pertinent History Musculoskelatal History: Other GI Medical History: No Pertinent History History: No Pertinent History Pyscho-Social History: No Pertinent History Male Reproductive Disorders: No Pertinent History Comment: mild coronary blockage without intervention. Hx Laminectomy L4-L5 back surgery in 1980. - Past Surgical History Past Surgical History: Yes Neuro Surgical History: No Pertinent History Cardiac History: Cardiac Catheterization Respiratory Surgery: No Pertinent History GI Surgical History: No Pertinent History Genitourinary Surgical Hx: No Pertinent History Musculskeletal Surgical Hx: Other Male Surgical History: No Pertinent History Other Surgical History: T&A, BACK SURGERY - Social History Smoking Status: Current every day smoker How long have you smoked: 60 Exposure to second hand smoke: No Alcohol: None Drug Use: none - Social Determinants of Health Will the patient participate in the screening: Declined to provide - Physical Exam Vital Signs: Vital Signs - 24 hr Temp Pulse Resp BP BP Pulse Ox 08/02/23 11:51 100.1 F 82 16 105/55 95 08/02/23 08:17 99.7 F 88 20 126/62 93 L 08/02/23 08:02 98.8 F 88 20 160/75 97 08/02/23 07:01 96 08/02/23 07:00 68 103/51 97 08/02/23 06:30 107/57 08/02/23 06:00 92 H 108/55 95 08/02/23 05:43 87 98/55 95 08/02/23 05:42 94 L 08/02/23 04:30 88 116/65 98 08/02/23 04:00 87 24 123/65 95 08/02/23 03:30 87 22 115/62 95 08/02/23 03:01 89 24 102/54 97 08/02/23 02:30 88 23 115/65 08/02/23 02:00 90 26 H 109/71 96 08/02/23 01:30 91 H 29 H 127/71 96 08/02/23 01:05 93 H 28 H 134/75 96 08/02/23 01:00 87 27 H 145/73 96 08/02/23 00:44 85 32 H 151/73 97 08/02/23 00:43 85 30 H 08/02/23 00:01 170/75 08/01/23 23:50 99.3 F 90 20 159/82 96 General Appearance: mild distress, alert Neurologic Exam: alert, oriented x 3, cooperative, nml cerebellar function, nml station & gait, No motor deficits Eye Exam: PERRL/EOMI, eyes nml inspection Ears, Nose, Throat Exam: normal ENT inspection, TMs normal, pharynx normal, moist mucous membranes Neck Exam: normal inspection, non-tender, supple, full range of motion Respiratory Exam: normal breath sounds, lungs clear, No respiratory distress Cardiovascular Exam: regular rate/rhythm, normal heart sounds, normal peripheral pulses Gastrointestinal/Abdomen Exam: soft, normal bowel sounds, No tenderness, No mass Back Exam: normal inspection, normal range of motion, No CVA tenderness, No vertebral tenderness Extremity Exam: normal inspection, normal range of motion, pelvis stable Skin Exam: normal color, warm, dry, No rash Lymphatic Exam: No adenopathy Results - Labs Lab/Micro Results: Lab Results-Last 24 Hours 08/01/23 08/01/23 08/01/23 Range/Units 00:35 00:35 00:35 WBC 5.8 (4.0-10.5) x10^3/uL RBC 5.11 (4.1-5.6) x10^6/uL Hgb 15.4 (12.5-18.0) g/dL Hct 46.0 (42-50) % MCV 90.0 (78-100) fL MCH 30.1 (26-32) pg MCHC 33.5 (32-36) g/dL RDW 13.7 (11.5-14.0) % Plt Count 120 L (150-450) x10^3/uL MPV 10.6 (7.5-11.0) fL Gran % 92.9 H (36.0-66.0) % Immature Gran % (Auto) 1.6 H (0.00-0.4) % Nucleat RBC Rel Count 0.0 (0.00-0.1) % Eos # (Auto) 0.01 (0-0.5) x10^3/uL Immature Gran # (Auto) 0.09 H (0.00-0.03) x10^3u/L Absolute Lymphs (auto) 0.26 L (1.0-4.6) x10^3/uL Absolute Monos (auto) 0.03 (0.0-1.3) x10^3/uL Absolute Nucleated RBC 0.00 (0.00-0.01) x10^3u/L Lymphocytes % 4.5 L (24.0-44.0) % Monocytes % 0.5 (0.0-12.0) % Eosinophils % 0.2 (0.00-5.0) % Basophils % 0.3 (0.0-0.4) % Absolute Granulocytes 5.35 (1.4-6.9) x10^3/uL Basophils # 0.02 (0-0.4) x10^3/uL ESR (0-15) mm/hr Sodium 141 (135-145) mmol/L Potassium 3.4 L (3.5-5.1) mmol/L Chloride 108 H (98-107) mmol/L Carbon Dioxide 22 (22-30) mmol/L Anion Gap 14.5 (5-15) MEQ/L BUN 21 H (9-20) mg/dL Creatinine 1.40 H (0.66-1.25) mg/dL Estimated GFR 52.1 ML/MIN Glucose 112 H (74-106) mg/dL Lactic Acid (0.4-2.0) Calcium 9.2 (8.4-10.2) mg/dL Magnesium (1.6-2.3) mg/dL Total Bilirubin 0.60 (0.2-1.3) mg/dL AST 27 (17-59) U/L ALT 29 (0-50) U/L Alkaline Phosphatase 67 (38-126) U/L Troponin I (0.000-0.033) ng/mL Serum Total Protein 7.5 (6.3-8.2) g/dL Albumin 4.1 (3.5-5.0) g/dL Lipase 85 (23-300) U/L Urine Color (Yellow) Urine Appearance (Clear) Urine pH (4.6-8.0) Ur Specific [place] (1.005-1.030) Urine Protein (Negative) Urine Glucose (UA) (Negative) mg/dL Urine Ketones (Negative) Urine Blood (Negative) Urine Nitrite (Negative) Urine Bilirubin (Negative) Urine Urobilinogen (0.2) mg/dL Ur Leukocyte Esterase (Negative) U Hyaline Cast (Auto) (0-2) /LPF Urine Microscopic RBC (0-5) /HPF Urine Microscopic WBC (0-5) /HPF Ur Epithelial Cells (None Seen) /HPF Urine Bacteria (None Seen) /HPF Urine Culture Reflexed (NO) Influenza Type A Ag NEGATIVE (NEGATIVE) Influenza Type B Ag NEGATIVE (NEGATIVE) RSV (PCR) NEGATIVE (NEGATIVE) SARS-CoV-2 (PCR) NEGATIVE (NEGATIVE) 08/02/23 08/02/23 08/02/23 Range/Units 00:07 00:30 01:50 WBC (4.0-10.5) x10^3/uL RBC (4.1-5.6) x10^6/uL Hgb (12.5-18.0) g/dL Hct (42-50) % MCV (78-100) fL MCH (26-32) pg MCHC (32-36) g/dL RDW (11.5-14.0) % Plt Count (150-450) x10^3/uL MPV (7.5-11.0) fL Gran % (36.0-66.0) % Immature Gran % (Auto) (0.00-0.4) % Nucleat RBC Rel Count (0.00-0.1) % Eos # (Auto) (0-0.5) x10^3/uL Immature Gran # (Auto) (0.00-0.03) x10^3u/L Absolute Lymphs (auto) (1.0-4.6) x10^3/uL Absolute Monos (auto) (0.0-1.3) x10^3/uL Absolute Nucleated RBC (0.00-0.01) x10^3u/L Lymphocytes % (24.0-44.0) % Monocytes % (0.0-12.0) % Eosinophils % (0.00-5.0) % Basophils % (0.0-0.4) % Absolute Granulocytes (1.4-6.9) x10^3/uL Basophils # (0-0.4) x10^3/uL ESR (0-15) mm/hr Sodium (135-145) mmol/L Potassium (3.5-5.1) mmol/L Chloride (98-107) mmol/L Carbon Dioxide (22-30) mmol/L Anion Gap (5-15) MEQ/L BUN (9-20) mg/dL Creatinine (0.66-1.25) mg/dL Estimated GFR ML/MIN Glucose (74-106) mg/dL Lactic Acid 4.5 H (0.4-2.0) Calcium (8.4-10.2) mg/dL Magnesium (1.6-2.3) mg/dL Total Bilirubin (0.2-1.3) mg/dL AST (17-59) U/L ALT (0-50) U/L Alkaline Phosphatase (38-126) U/L Troponin I < 0.012 (0.000-0.033) ng/mL Serum Total Protein (6.3-8.2) g/dL Albumin (3.5-5.0) g/dL Lipase (23-300) U/L Urine Color Yellow (Yellow) Urine Appearance Clear (Clear) Urine pH 5.5 (4.6-8.0) Ur Specific [place] 1.015 (1.005-1.030) Urine Protein Trace A (Negative) Urine Glucose (UA) Negative (Negative) mg/dL Urine Ketones Negative (Negative) Urine Blood Negative (Negative) Urine Nitrite Negative (Negative) Urine Bilirubin Negative (Negative) Urine Urobilinogen 0.2 (0.2) mg/dL Ur Leukocyte Esterase Negative (Negative) U Hyaline Cast (Auto) 3-5 A (0-2) /LPF Urine Microscopic RBC 0-2 (0-5) /HPF Urine Microscopic WBC 0-2 (0-5) /HPF Ur Epithelial Cells None Seen (None Seen) /HPF Urine Bacteria None Seen (None Seen) /HPF Urine Culture Reflexed NO (NO) Influenza Type A Ag (NEGATIVE) Influenza Type B Ag (NEGATIVE) RSV (PCR) (NEGATIVE) SARS-CoV-2 (PCR) (NEGATIVE) 08/02/23 08/02/23 08/02/23 Range/Units 04:52 04:52 06:14 WBC (4.0-10.5) x10^3/uL RBC (4.1-5.6) x10^6/uL Hgb (12.5-18.0) g/dL Hct (42-50) % MCV (78-100) fL MCH (26-32) pg MCHC (32-36) g/dL RDW (11.5-14.0) % Plt Count (150-450) x10^3/uL MPV (7.5-11.0) fL Gran % (36.0-66.0) % Immature Gran % (Auto) (0.00-0.4) % Nucleat RBC Rel Count (0.00-0.1) % Eos # (Auto) (0-0.5) x10^3/uL Immature Gran # (Auto) (0.00-0.03) x10^3u/L Absolute Lymphs (auto) (1.0-4.6) x10^3/uL Absolute Monos (auto) (0.0-1.3) x10^3/uL Absolute Nucleated RBC (0.00-0.01) x10^3u/L Lymphocytes % (24.0-44.0) % Monocytes % (0.0-12.0) % Eosinophils % (0.00-5.0) % Basophils % (0.0-0.4) % Absolute Granulocytes (1.4-6.9) x10^3/uL Basophils # (0-0.4) x10^3/uL ESR (0-15) mm/hr Sodium 141 (135-145) mmol/L Potassium 3.4 L (3.5-5.1) mmol/L Chloride 112 H (98-107) mmol/L Carbon Dioxide 23 (22-30) mmol/L Anion Gap 9.1 (5-15) MEQ/L BUN 19 (9-20) mg/dL Creatinine 1.50 H (0.66-1.25) mg/dL Estimated GFR 48.0 ML/MIN Glucose 107 H (74-106) mg/dL Lactic Acid 3.6 H (0.4-2.0) Calcium 8.3 L (8.4-10.2) mg/dL Magnesium (1.6-2.3) mg/dL Total Bilirubin (0.2-1.3) mg/dL AST (17-59) U/L ALT (0-50) U/L Alkaline Phosphatase (38-126) U/L Troponin I < 0.012 (0.000-0.033) ng/mL Serum Total Protein (6.3-8.2) g/dL Albumin (3.5-5.0) g/dL Lipase (23-300) U/L Urine Color (Yellow) Urine Appearance (Clear) Urine pH (4.6-8.0) Ur Specific [place] (1.005-1.030) Urine Protein (Negative) Urine Glucose (UA) (Negative) mg/dL Urine Ketones (Negative) Urine Blood (Negative) Urine Nitrite (Negative) Urine Bilirubin (Negative) Urine Urobilinogen (0.2) mg/dL Ur Leukocyte Esterase (Negative) U Hyaline Cast (Auto) (0-2) /LPF Urine Microscopic RBC (0-5) /HPF Urine Microscopic WBC (0-5) /HPF Ur Epithelial Cells (None Seen) /HPF Urine Bacteria (None Seen) /HPF Urine Culture Reflexed (NO) Influenza Type A Ag (NEGATIVE) Influenza Type B Ag (NEGATIVE) RSV (PCR) (NEGATIVE) SARS-CoV-2 (PCR) (NEGATIVE) 08/02/23 08/02/23 08/02/23 Range/Units 09:30 09:30 09:30 WBC 21.1 H (4.0-10.5) x10^3/uL RBC 4.60 (4.1-5.6) x10^6/uL Hgb 13.8 (12.5-18.0) g/dL Hct 42.5 (42-50) % MCV 92.4 (78-100) fL MCH 30.0 (26-32) pg MCHC 32.5 (32-36) g/dL RDW 14.1 H (11.5-14.0) % Plt Count 102 L (150-450) x10^3/uL MPV 11.3 H (7.5-11.0) fL Gran % (36.0-66.0) % Immature Gran % (Auto) (0.00-0.4) % Nucleat RBC Rel Count (0.00-0.1) % Eos # (Auto) (0-0.5) x10^3/uL Immature Gran # (Auto) (0.00-0.03) x10^3u/L Absolute Lymphs (auto) (1.0-4.6) x10^3/uL Absolute Monos (auto) (0.0-1.3) x10^3/uL Absolute Nucleated RBC (0.00-0.01) x10^3u/L Lymphocytes % (24.0-44.0) % Monocytes % (0.0-12.0) % Eosinophils % (0.00-5.0) % Basophils % (0.0-0.4) % Absolute Granulocytes (1.4-6.9) x10^3/uL Basophils # (0-0.4) x10^3/uL ESR 1 (0-15) mm/hr Sodium (135-145) mmol/L Potassium (3.5-5.1) mmol/L Chloride (98-107) mmol/L Carbon Dioxide (22-30) mmol/L Anion Gap (5-15) MEQ/L BUN (9-20) mg/dL Creatinine (0.66-1.25) mg/dL Estimated GFR ML/MIN Glucose (74-106) mg/dL Lactic Acid (0.4-2.0) Calcium (8.4-10.2) mg/dL Magnesium (1.6-2.3) mg/dL Total Bilirubin (0.2-1.3) mg/dL AST (17-59) U/L ALT (0-50) U/L Alkaline Phosphatase (38-126) U/L Troponin I < 0.012 (0.000-0.033) ng/mL Serum Total Protein (6.3-8.2) g/dL Albumin (3.5-5.0) g/dL Lipase (23-300) U/L Urine Color (Yellow) Urine Appearance (Clear) Urine pH (4.6-8.0) Ur Specific [place] (1.005-1.030) Urine Protein (Negative) Urine Glucose (UA) (Negative) mg/dL Urine Ketones (Negative) Urine Blood (Negative) Urine Nitrite (Negative) Urine Bilirubin (Negative) Urine Urobilinogen (0.2) mg/dL Ur Leukocyte Esterase (Negative) U Hyaline Cast (Auto) (0-2) /LPF Urine Microscopic RBC (0-5) /HPF Urine Microscopic WBC (0-5) /HPF Ur Epithelial Cells (None Seen) /HPF Urine Bacteria (None Seen) /HPF Urine Culture Reflexed (NO) Influenza Type A Ag (NEGATIVE) Influenza Type B Ag (NEGATIVE) RSV (PCR) (NEGATIVE) SARS-CoV-2 (PCR) (NEGATIVE) 08/02/23 08/02/23 Range/Units 09:30 12:46 WBC (4.0-10.5) x10^3/uL RBC (4.1-5.6) x10^6/uL Hgb (12.5-18.0) g/dL Hct (42-50) % MCV (78-100) fL MCH (26-32) pg MCHC (32-36) g/dL RDW (11.5-14.0) % Plt Count (150-450) x10^3/uL MPV (7.5-11.0) fL Gran % (36.0-66.0) % Immature Gran % (Auto) (0.00-0.4) % Nucleat RBC Rel Count (0.00-0.1) % Eos # (Auto) (0-0.5) x10^3/uL Immature Gran # (Auto) (0.00-0.03) x10^3u/L Absolute Lymphs (auto) (1.0-4.6) x10^3/uL Absolute Monos (auto) (0.0-1.3) x10^3/uL Absolute Nucleated RBC (0.00-0.01) x10^3u/L Lymphocytes % (24.0-44.0) % Monocytes % (0.0-12.0) % Eosinophils % (0.00-5.0) % Basophils % (0.0-0.4) % Absolute Granulocytes (1.4-6.9) x10^3/uL Basophils # (0-0.4) x10^3/uL ESR (0-15) mm/hr Sodium (135-145) mmol/L Potassium (3.5-5.1) mmol/L Chloride (98-107) mmol/L Carbon Dioxide (22-30) mmol/L Anion Gap (5-15) MEQ/L BUN (9-20) mg/dL Creatinine (0.66-1.25) mg/dL Estimated GFR ML/MIN Glucose (74-106) mg/dL Lactic Acid 2.9 H (0.4-2.0) Calcium (8.4-10.2) mg/dL Magnesium 1.3 L (1.6-2.3) mg/dL Total Bilirubin (0.2-1.3) mg/dL AST (17-59) U/L ALT (0-50) U/L Alkaline Phosphatase (38-126) U/L Troponin I (0.000-0.033) ng/mL Serum Total Protein (6.3-8.2) g/dL Albumin (3.5-5.0) g/dL Lipase (23-300) U/L Urine Color (Yellow) Urine Appearance (Clear) Urine pH (4.6-8.0) Ur Specific [place] (1.005-1.030) Urine Protein (Negative) Urine Glucose (UA) (Negative) mg/dL Urine Ketones (Negative) Urine Blood (Negative) Urine Nitrite (Negative) Urine Bilirubin (Negative) Urine Urobilinogen (0.2) mg/dL Ur Leukocyte Esterase (Negative) U Hyaline Cast (Auto) (0-2) /LPF Urine Microscopic RBC (0-5) /HPF Urine Microscopic WBC (0-5) /HPF Ur Epithelial Cells (None Seen) /HPF Urine Bacteria (None Seen) /HPF Urine Culture Reflexed (NO) Influenza Type A Ag (NEGATIVE) Influenza Type B Ag (NEGATIVE) RSV (PCR) (NEGATIVE) SARS-CoV-2 (PCR) (NEGATIVE) - Radiology Impressions Radiology Exams & Impressions: Radiology Procedures Category Date Time Status ABDOMEN AND PELVIS W/0 CONTRAS [CT] Stat Exams 08/02/23 02:41 Completed CHEST 1 VIEW (PORTABLE) Stat Exams 08/02/23 00:50 Completed Assessment/Plan (1) Viral gastroenteritis Current Visit: Yes Status: Acute Assessment & Plan: CT abd/Pelvis 08/01 IMPRESSION: 1. No CT evidence of renal or ureteric stones. 2. Right hepatic lobe segment VII few small hypodense focal lesions; likely cysts. U/S is advised. 3. Enlarged prostate. 4. Diverticulosis of the sigmoid and descending colon with no CT evidnece of diverticulitis - IVF - N/V/D resolved - tylenol for pain - WBC 21.1- likely reactive Code(s): A08.4 - VIRAL INTESTINAL INFECTION, UNSPECIFIED (2) Hypokalemia Current Visit: Yes Status: Acute Assessment & Plan: - 2:2 Viral gastro - K+ 3.4- replaced- trend - tele Code(s): E87.6 - HYPOKALEMIA (3) Lactic acidosis Current Visit: Yes Status: Acute Assessment & Plan: - 2:2 viral gastro - LA on admission to ER 4.5- 1L -IV fluid bolus gave - LA @ 06:14 3.6- 1L- IV fluid bolus - LA 2.9 @ 12:46 1L IV fluid bolus gave- will recheck in 4 hours Code(s): E87.20 - ACIDOSIS, UNSPECIFIED (4) Acute renal insufficiency Current Visit: No Status: Acute Assessment & Plan: - 2;2 dehydration - IVF - creat 1.50 BL WNL Code(s): N28.9 - DISORDER OF KIDNEY AND URETER, UNSPECIFIED (5) Hypomagnesemia Current Visit: Yes Status: Acute Assessment & Plan: - 2:2 viral gastro - Mg+ 1.3- replaced- trend Code(s): E83.42 - HYPOMAGNESEMIA (6) Joint pain Current Visit: Yes Status: Acute Assessment & Plan: - pt reports since sxs satrted last night - increased pain of BL shoulder, hips, knees, sacroiliac regions - XR lumbar back for further eval since this is where most of his pain is currently. - Tylenol for pain Code(s): M25.50 - PAIN IN UNSPECIFIED JOINT (7) Abnormal liver diagnostic imaging Current Visit: Yes Status: Acute Assessment & Plan: - As seen on CT- Right hepatic lobe segment VII few small hypodense focal lesions; likely cysts. U/S is advised - US ordered for 08/02 - NPO after midnight Code(s): R93.2 - ABNORMAL FINDINGS ON DX IMAGING OF LIVER AND BILIARY TRACT (8) HTN (hypertension) Current Visit: Yes Status: Chronic Assessment & Plan: - BP stable, continue home meds Code(s): I10 - ESSENTIAL (PRIMARY) HYPERTENSION (9) Chronic atrial fibrillation Current Visit: Yes Status: Chronic Assessment & Plan: - Continue Eliquis - Tele Code(s): I48.20 - CHRONIC ATRIAL FIBRILLATION, UNSPECIFIED (10) GERD (gastroesophageal reflux disease) Current Visit: Yes Status: Chronic Assessment & Plan: - Continue home med pantoprazole Code(s): K21.9 - GASTRO-ESOPHAGEAL REFLUX DISEASE WITHOUT ESOPHAGITIS (11) Obesity (BMI 30.0-34.9) Current Visit: Yes Status: Chronic Assessment & Plan: - advised diet and exercise control Code(s): E66.9 - OBESITY, UNSPECIFIED (12) Smoker Current Visit: Yes Status: Chronic Assessment & Plan: - Advised cessation - He refused cessation information and explained he rarely smokes. VTE: Eliquis PPI: pantoprazole Next of kin: , PHIL RUIZ [phone] D/c plan: 1-2 days Code status: SCO/DNR Code(s): F17.200 - NICOTINE DEPENDENCE, UNSPECIFIED, UNCOMPLICATED
[2023-08-02] MEDS: Acidophilus TABLET PO SCH (17:58)
[2023-08-02 18:38] LABS: 027 TOX PROD PRESUMPTIVE NEGATIVE (NEGATIVE); TOXIGENIC C. DIFF ORG NEGATIVE (NEGATIVE)
--- NOTE | 2023-08-02 22:19 | XRAY ---
Indication: Low back and bilateral hip pain. Comparison: None 5 view lumbar spine demonstrates 4 lumbar segments with partial sacralized L5, osteopenia, minimal levoscoliosis centered at L1, mild/moderate multilevel thoracolumbar degenerative spondylosis greatest at L4-L5, and moderate scattered vascular calcifications. No other bony, articular, or soft tissue abnormalities.
[2023-08-03 04:54] LABS: Hematocrit 41.9 % (42-50); Hemoglobin 13.5 g/dL (12.5-18.0); Mean Cell Volume 92.1 fL (78-100); Mean Corpuscular Hemoglobin 29.7 pg (26-32); Mean Corpuscular Hgb Concent. 32.2 g/dL (32-36); Mean Platelet Volume 11.6 fL (7.5-11.0); Platelet Count 85 x10^3/uL (150-450); Red Blood Count 4.55 x10^6/uL (4.1-5.6); Red Cell Distribution Width 14.4 % (11.5-14.0); White Blood Count 14.9 x10^3/uL (4.0-10.5)
[2023-08-03 05:36] LABS: ALBUMIN 2.9 g/dL (3.5-5.0); ANION GAP 9.1 MEQ/L (5-15); BILIRUBIN,TOTAL 0.7 mg/dL (0.2-1.3); Calcium 7.7 mg/dL (8.4-10.2); Creatinine 1 1.18 mg/dL (0.66-1.25); MAGNESIUM 1.5 mg/dL (1.6-2.3); Potassium 3.6 mmol/L (3.5-5.1); Total Protein 5.8 g/dL (6.3-8.2)
[2023-08-03] MEDS: IMODIUM 2 MG PO PRN (05:41)
--- NOTE | 2023-08-03 05:48 | PCM.NOTE ---
Date and Time: 08/03/23 0547 Subjective Assessment: Mr. Ruiz is a 77 year old male that was admitted 08/02/23 experiencing symptoms of abdominal pain, SOB, diarrhea, H/A, body aches, and joint pain. Admitted with viral gastroenteritis, CRYSTAL, and lactic acidosis. CT scan showing what appears to be hepatic cysts with US recommended which we will obtain, otherwise unremarkable for acute findings. Current treatment with supportive therapies including IVF, anti-emetics, and electrolyte replenishment. 08/02: Met with patient bedside. Overnight events of multiple diarrheal episodes noted. Immodium initiated and patient endorses no further episode. CDiff is negative. Patient states he is feeling much better overall today. Mag replenished. - Review of Systems Constitutional: Fever Eyes: No Symptoms Ears, Nose, & Throat: No Symptoms Respiratory: No Symptoms Cardiac: No Symptoms Abdominal/Gastrointestinal: Nausea, Diarrhea Genitourinary Symptoms: No Symptoms Musculoskeletal: No Symptoms Skin: No Symptoms Neurological: No Symptoms Psychological: No Symptoms Endocrine: No Symptoms Hematologic/Lymphatic: No Symptoms Immunological/Allergic: No Symptoms Objective Exam General Appearance: no apparent distress Neurologic Exam: alert, oriented x 3, cooperative Skin Exam: normal color Eye Exam: PERRL Ears, Nose, Throat Exam: normal ENT inspection Neck Exam: normal inspection Respiratory Exam: normal breath sounds, lungs clear Cardiovascular Exam: regular rate/rhythm, normal heart sounds Gastrointestinal/Abdomen Exam: soft, normal bowel sounds Extremity Exam: normal inspection Back Exam: normal inspection Male Genitalia Exam: deferred Rectal Exam: deferred Objective Data Vital Signs: Vital Signs - 24 hr Temp Pulse Resp BP BP Pulse Ox 08/03/23 04:00 99.9 F 73 17 117/58 95 08/03/23 00:00 98.7 F 70 17 107/55 97 08/02/23 20:10 99.4 F 79 18 112/57 99 08/02/23 17:21 98.6 F 08/02/23 14:50 98.5 F 71 16 106/58 95 08/02/23 11:51 100.1 F 82 16 105/55 95 08/02/23 08:17 99.7 F 88 20 126/62 93 L 08/02/23 08:02 98.8 F 88 20 160/75 97 08/02/23 07:01 96 08/02/23 07:00 68 103/51 97 08/02/23 06:30 107/57 08/02/23 06:00 92 H 108/55 95 Pain Assessment - Last Documented Pain Intensity [Lower Back] 9 Pain Intensity 2 Pain Scale Used 0-10 Pain Scale Intake and Output: Intake & Output 07/31/23 08/01/23 08/02/23 08/03/23 11:59 11:59 11:59 11:59 Intake Total 60 4542 Balance 60 4542 Weight 94.1 kg Lab Results: Lab Results-Last 24 Hours 08/02/23 08/02/23 08/02/23 Range/Units 04:52 06:14 09:30 WBC (4.0-10.5) x10^3/uL RBC (4.1-5.6) x10^6/uL Hgb (12.5-18.0) g/dL Hct (42-50) % MCV (78-100) fL MCH (26-32) pg MCHC (32-36) g/dL RDW (11.5-14.0) % Plt Count (150-450) x10^3/uL MPV (7.5-11.0) fL ESR (0-15) mm/hr Sodium 141 (135-145) mmol/L Potassium 3.4 L (3.5-5.1) mmol/L Chloride 112 H (98-107) mmol/L Carbon Dioxide 23 (22-30) mmol/L Anion Gap 9.1 (5-15) MEQ/L BUN 19 (9-20) mg/dL Creatinine 1.50 H (0.66-1.25) mg/dL Estimated GFR 48.0 ML/MIN Glucose 107 H (74-106) mg/dL Lactic Acid 3.6 H (0.4-2.0) Calcium 8.3 L (8.4-10.2) mg/dL Magnesium (1.6-2.3) mg/dL Total Bilirubin (0.2-1.3) mg/dL AST (17-59) U/L ALT (0-50) U/L Alkaline Phosphatase (38-126) U/L Troponin I < 0.012 (0.000-0.033) ng/mL Serum Total Protein (6.3-8.2) g/dL Albumin (3.5-5.0) g/dL C. difficile Screen (NEGATIVE) C.difficile 027-NAP1-B1 (NEGATIVE) 08/02/23 08/02/23 08/02/23 Range/Units 09:30 09:30 09:30 WBC 21.1 H (4.0-10.5) x10^3/uL RBC 4.60 (4.1-5.6) x10^6/uL Hgb 13.8 (12.5-18.0) g/dL Hct 42.5 (42-50) % MCV 92.4 (78-100) fL MCH 30.0 (26-32) pg MCHC 32.5 (32-36) g/dL RDW 14.1 H (11.5-14.0) % Plt Count 102 L (150-450) x10^3/uL MPV 11.3 H (7.5-11.0) fL ESR 1 (0-15) mm/hr Sodium (135-145) mmol/L Potassium (3.5-5.1) mmol/L Chloride (98-107) mmol/L Carbon Dioxide (22-30) mmol/L Anion Gap (5-15) MEQ/L BUN (9-20) mg/dL Creatinine (0.66-1.25) mg/dL Estimated GFR ML/MIN Glucose (74-106) mg/dL Lactic Acid (0.4-2.0) Calcium (8.4-10.2) mg/dL Magnesium 1.3 L (1.6-2.3) mg/dL Total Bilirubin (0.2-1.3) mg/dL AST (17-59) U/L ALT (0-50) U/L Alkaline Phosphatase (38-126) U/L Troponin I (0.000-0.033) ng/mL Serum Total Protein (6.3-8.2) g/dL Albumin (3.5-5.0) g/dL C. difficile Screen (NEGATIVE) C.difficile 027-NAP1-B1 (NEGATIVE) 08/02/23 08/02/23 08/02/23 Range/Units 12:46 16:00 16:40 WBC (4.0-10.5) x10^3/uL RBC (4.1-5.6) x10^6/uL Hgb (12.5-18.0) g/dL Hct (42-50) % MCV (78-100) fL MCH (26-32) pg MCHC (32-36) g/dL RDW (11.5-14.0) % Plt Count (150-450) x10^3/uL MPV (7.5-11.0) fL ESR (0-15) mm/hr Sodium (135-145) mmol/L Potassium 4.1 D (3.5-5.1) mmol/L Chloride (98-107) mmol/L Carbon Dioxide (22-30) mmol/L Anion Gap (5-15) MEQ/L BUN (9-20) mg/dL Creatinine (0.66-1.25) mg/dL Estimated GFR ML/MIN Glucose (74-106) mg/dL Lactic Acid 2.9 H 2.5 H (0.4-2.0) Calcium (8.4-10.2) mg/dL Magnesium (1.6-2.3) mg/dL Total Bilirubin (0.2-1.3) mg/dL AST (17-59) U/L ALT (0-50) U/L Alkaline Phosphatase (38-126) U/L Troponin I (0.000-0.033) ng/mL Serum Total Protein (6.3-8.2) g/dL Albumin (3.5-5.0) g/dL C. difficile Screen (NEGATIVE) C.difficile 027-NAP1-B1 (NEGATIVE) 08/02/23 08/02/23 08/03/23 Range/Units 17:53 20:30 04:00 WBC (4.0-10.5) x10^3/uL RBC (4.1-5.6) x10^6/uL Hgb (12.5-18.0) g/dL Hct (42-50) % MCV (78-100) fL MCH (26-32) pg MCHC (32-36) g/dL RDW (11.5-14.0) % Plt Count (150-450) x10^3/uL MPV (7.5-11.0) fL ESR (0-15) mm/hr Sodium (135-145) mmol/L Potassium (3.5-5.1) mmol/L Chloride (98-107) mmol/L Carbon Dioxide (22-30) mmol/L Anion Gap (5-15) MEQ/L BUN (9-20) mg/dL Creatinine (0.66-1.25) mg/dL Estimated GFR ML/MIN Glucose (74-106) mg/dL Lactic Acid 1.4 1.5 (0.4-2.0) Calcium (8.4-10.2) mg/dL Magnesium (1.6-2.3) mg/dL Total Bilirubin (0.2-1.3) mg/dL AST (17-59) U/L ALT (0-50) U/L Alkaline Phosphatase (38-126) U/L Troponin I (0.000-0.033) ng/mL Serum Total Protein (6.3-8.2) g/dL Albumin (3.5-5.0) g/dL C. difficile Screen NEGATIVE (NEGATIVE) C.difficile 027-NAP1-B1 PRESUMPTIVE NEGATIVE (NEGATIVE) 08/03/23 08/03/23 Range/Units 04:25 04:25 WBC 14.9 H (4.0-10.5) x10^3/uL RBC 4.55 (4.1-5.6) x10^6/uL Hgb 13.5 (12.5-18.0) g/dL Hct 41.9 L (42-50) % MCV 92.1 (78-100) fL MCH 29.7 (26-32) pg MCHC 32.2 (32-36) g/dL RDW 14.4 H (11.5-14.0) % Plt Count 85 L (150-450) x10^3/uL MPV 11.6 H (7.5-11.0) fL ESR (0-15) mm/hr Sodium 138 (135-145) mmol/L Potassium 3.6 (3.5-5.1) mmol/L Chloride 113 H (98-107) mmol/L Carbon Dioxide 20 L (22-30) mmol/L Anion Gap 9.1 (5-15) MEQ/L BUN 14 (9-20) mg/dL Creatinine 1.18 (0.66-1.25) mg/dL Estimated GFR 64.0 ML/MIN Glucose 93 (74-106) mg/dL Lactic Acid (0.4-2.0) Calcium 7.7 L (8.4-10.2) mg/dL Magnesium 1.5 L (1.6-2.3) mg/dL Total Bilirubin 0.70 (0.2-1.3) mg/dL AST 32 (17-59) U/L ALT 21 (0-50) U/L Alkaline Phosphatase 67 (38-126) U/L Troponin I (0.000-0.033) ng/mL Serum Total Protein 5.8 L (6.3-8.2) g/dL Albumin 2.9 L (3.5-5.0) g/dL C. difficile Screen (NEGATIVE) C.difficile 027-NAP1-B1 (NEGATIVE) Radiology Exams: Radiology Procedures Category Date Time Status ABDOMEN AND PELVIS W/0 CONTRAS [CT] Stat Exams 08/02/23 02:41 Completed CHEST 1 VIEW (PORTABLE) Stat Exams 08/02/23 00:50 Completed LIVER OR SPLEEN [US] Routine Exams 08/03/23 08:00 Ordered LUMBAR COMPLETE (MIN 4 VIEWS) Routine Exams 08/02/23 14:21 Completed Assessment/Plan (1) Abnormal liver diagnostic imaging Current Visit: Yes Status: Acute Assessment & Plan: -- As seen on CT- Right hepatic lobe segment VII few small hypodense focal lesions; likely cysts. - US showing GB thickening and tiny hepatic lesion, CT with contrast suggested by radiology, will obtain Code(s): R93.2 - ABNORMAL FINDINGS ON DX IMAGING OF LIVER AND BILIARY TRACT (2) Hypokalemia Current Visit: Yes Status: Acute Assessment & Plan: -Secondary to GI loss -resolved Code(s): E87.6 - HYPOKALEMIA (3) Hypomagnesemia Current Visit: Yes Status: Acute Assessment & Plan: -Secondary to GI loss -Mag replenished Code(s): E83.42 - HYPOMAGNESEMIA (4) Joint pain Current Visit: Yes Status: Acute Assessment & Plan: - pt reports since sxs satrted last night - increased pain of BL shoulder, hips, knees, sacroiliac regions - XR lumbar back with chronic findings - Tylenol for pain Code(s): M25.50 - PAIN IN UNSPECIFIED JOINT (5) Lactic acidosis Current Visit: Yes Status: Acute Assessment & Plan: -resolved Code(s): E87.20 - ACIDOSIS, UNSPECIFIED (6) Viral gastroenteritis Current Visit: Yes Status: Acute Assessment & Plan: CT abd/Pelvis 08/01 IMPRESSION: 1. No CT evidence of renal or ureteric stones. 2. Right hepatic lobe segment VII few small hypodense focal lesions; likely cysts. U/S is advised. 3. Enlarged prostate. 4. Diverticulosis of the sigmoid and descending colon with no CT evidnece of diverticulitis - IVF - N/V/D resolved - tylenol for pain - WBC 21.1- likely reactive 08/02: -WBC trending down -overnight dirrheal episodes, Cdiff negative, immodium started, no further epidsodes this morning Code(s): A08.4 - VIRAL INTESTINAL INFECTION, UNSPECIFIED (7) Chronic atrial fibrillation Current Visit: Yes Status: Chronic Assessment & Plan: - Continue Eliquis - Tele Code(s): I48.20 - CHRONIC ATRIAL FIBRILLATION, UNSPECIFIED (8) GERD (gastroesophageal reflux disease) Current Visit: Yes Status: Chronic Assessment & Plan: - Continue home med pantoprazole Code(s): K21.9 - GASTRO-ESOPHAGEAL REFLUX DISEASE WITHOUT ESOPHAGITIS (9) Obesity (BMI 30.0-34.9) Current Visit: Yes Status: Chronic Assessment & Plan: - advised diet and exercise control Code(s): E66.9 - OBESITY, UNSPECIFIED (10) Smoker Current Visit: Yes Status: Chronic Assessment & Plan: - Advised cessation - He refused cessation information and explained he rarely smokes. Code(s): F17.200 - NICOTINE DEPENDENCE, UNSPECIFIED, UNCOMPLICATED (11) Acute renal insufficiency Current Visit: No Status: Acute Assessment & Plan: - 2;2 dehydration - IVF - creat 1.50 BL WNL 08/02: -resolved Code(s): N28.9 - DISORDER OF KIDNEY AND URETER, UNSPECIFIED (12) Hypertension Current Visit: No Status: Acute Qualifiers: Hypertension type: essential hypertension Assessment & Plan: - BP stable, continue home meds VTE: Eliquis PPI: pantoprazole Next of kin: , PHIL RUIZ [phone] D/c plan: 1-2 days Code status: SCO/DNR Code(s): I10 - ESSENTIAL (PRIMARY) HYPERTENSION
[2023-08-03 07:31] LABS: Slide Review YES
[2023-08-03] MEDS: MAGNESIUM SULF 2 G/50 ML BAG 2 GM/50 ML PIGGYBACK IV ONE (09:52)
--- NOTE | 2023-08-03 10:50 | XRAY ---
Indication: Abnormal liver finding on recent CT. Two-dimensional right upper quadrant abdominal sonogram performed. Comparison: None Visualized liver is homogeneous in echogenicity. No organomegaly or free fluid. Gallbladder normally distended without gallstones. There is abnormal gallbladder wall thickening up to 4.2 mm but no pericholecystic fluid. Common bile duct measures 5.6 mm. No intrahepatic biliary distention. Remaining visualized pancreas and right kidney is sonographically unremarkable. Right kidney measures 9.4 x 6.0 x 4.6 MET. Impression: 1. No focal solid/cystic hepatic mass. Tiny hepatic lesions seen on recent CT may be better evaluated with contrast exam if there remains further clinical concern. 2. Abnormal gallbladder wall thickening without gallstones. Rule out acalculous chronic cholecystitis.
[2023-08-03] MEDS: Lasix 40 MG/4 ML IV ONE (13:43)
--- NOTE | 2023-08-03 15:15 | XRAY ---
Indication: Short of breath. Multiple contiguous axial images obtained through the chest using 80 cc Isovue 370 contrast and PE protocol. Comparison: October 30, 2016 Good opacification of the pulmonary arteries to include the lobar and segmental branches. No pulmonary embolus. Heart not enlarged again with scattered coronary calcifications. Aorta mildly arteriosclerotic without aneurysm/dissection. No pathologic mediastinal/hilar lymphadenopathy. Lungs demonstrates new tiny bilateral pleural effusions. Remaining lungs again demonstrate mild diffuse pulmonary emphysema. No suspicious pulmonary mass/nodule or infiltrate. Bony thorax intact again with mild degenerative changes throughout the spine. CT abdomen/pelvis reported separately. Impression: 1. Continued negative pulmonary embolus. 2. New tiny nonspecific bilateral effusions. 3. Again chronic findings including pulmonary emphysema, arteriosclerotic disease, and chronic bony findings.
--- NOTE | 2023-08-03 15:19 | XRAY ---
Indication: Hepatic lesion. Gallbladder thickening. Multiple contiguous axial images obtained through the abdomen and pelvis using 80 cc Isovue 370 contrast. Comparison: Noncontrast exam one day earlier. CT chest reported separately. Noncontrasted stomach and bowel loops appear nonobstructed again with appendectomy and scattered colonic diverticulosis. Stable tiny right lobe hepatic cysts, largest 6 mm. Both kidneys enhance and excrete with stable left renal cysts. Again mild enlarged prostate gland. No free fluid/air. Remaining liver, gallbladder, pancreas, spleen, adrenal glands, kidneys, ureters, and bladder are unremarkable. There remains moderate scattered aortoiliac calcifications are no AAA or pathologic retroperitoneal lymphadenopathy. Impression: 1. Stable colonic diverticulosis, hepatic cysts, left renal cysts, enlarged prostate gland, and arteriosclerotic disease. 2. Remaining CT abdomen/pelvis with contrast exam continues to be negative.
[2023-08-03 19:02] VITALS: RESP 16
[2023-08-03] MEDS ORDERED: Zithromax 500 MG/ 250 ML NaCl Premix 500 MG/250 ML IVPB IV ONE (22:42)
[2023-08-03] MEDS ORDERED: ROCEPHIN 1 GM / 100 ML NaCl 1 GM/100 ML IVPB IV ONE (22:43)
[2023-08-04 05:18] LABS: Absolute Neutrophil Ct (ANC) 9.85 x10^3/uL (1.4-6.9); BASOPHIL % 0.4 % (0.0-0.4); Basophil (Absolute #) 0.05 x10^3/uL (0-0.4); Eosinophil % 1.3 % (0.00-5.0); Eosinophil (Absolute #) 0.16 x10^3/uL (0-0.5); Hemoglobin 13.9 g/dL (12.5-18.0); IMMATURE GRAN # 0.09 x10^3u/L (0.00-0.03); IMMATURE GRAN % 0.7 % (0.00-0.4); Lymphocyte (Absolute #) 1.23 x10^3/uL (1.0-4.6); Mean Cell Volume 89.2 fL (78-100); Mean Corpuscular Hemoglobin 29.5 pg (26-32); Mean Corpuscular Hgb Concent. 33.1 g/dL (32-36); Mean Platelet Volume 11.2 fL (7.5-11.0); Monocyte (Absolute #) 0.87 x10^3/uL (0.0-1.3); Monocytes % 7.1 % (0.0-12.0); Neutrophil % 80.5 % (36.0-66.0); Platelet Count 81 x10^3/uL (150-450); Red Blood Count 4.71 x10^6/uL (4.1-5.6); Red Cell Distribution Width 13.4 % (11.5-14.0); White Blood Count 12.3 x10^3/uL (4.0-10.5)
--- NOTE | 2023-08-04 05:32 | PCM.NOTE ---
Date and Time: 08/04/23529 Subjective Assessment: Mr. Mensah is a 77 year old male that was admitted 08/02/23 experiencing symptoms of abdominal pain, SOB, diarrhea, H/A, body aches, and joint pain. Admitted with viral gastroenteritis, CRYSTAL, and lactic acidosis. CT scan without contrast showing what appears to be hepatic cysts and enlarged prostate gland otherwise unremarkable for acute findings. CT chest with tiny bilateral effusions, no PE. Current treatment with supportive therapies including IVF, anti-emetics, and electrolyte replenishment. Objective Data Vital Signs: Vital Signs - 24 hr Temp Pulse Resp BP Pulse Ox 08/04/23 04:00 97.9 F 61 16 138/63 90 L 08/03/23 23:23 98.8 F 87 16 149/66 90 L 08/03/23 19:05 96 08/03/23 19:01 98.4 F 68 16 129/62 92 L 08/03/23 15:42 98.3 F 65 20 148/69 92 L 08/03/23 13:45 96 08/03/23 13:20 90 L 08/03/23 12:00 97.8 F 76 19 120/60 94 L 08/03/23 08:00 97.7 F 70 19 135/62 91 L 08/03/23 06:00 100.1 F 72 16 94 L Pain Assessment - Last Documented Pain Intensity [Lower Back] 9 Pain Intensity 0 Pain Scale Used 0-10 Pain Scale Intake and Output: Intake & Output 08/01/23 08/02/23 08/03/23 08/04/23 11:59 11:59 11:59 11:59 Intake Total 60 4542 240 Balance 60 4542 240 Weight 94.1 kg 93.7 kg Lab Results: Lab Results-Last 24 Hours 08/03/23 08/03/23 08/04/23 Range/Units 04:25 04:25 04:42 WBC 12.3 H (4.0-10.5) x10^3/uL RBC 4.71 (4.1-5.6) x10^6/uL Hgb 13.9 (12.5-18.0) g/dL Hct 42.0 (42-50) % MCV 89.2 (78-100) fL MCH 29.5 (26-32) pg MCHC 33.1 (32-36) g/dL RDW 13.4 (11.5-14.0) % Plt Count 81 L (150-450) x10^3/uL MPV 11.2 H (7.5-11.0) fL Gran % 80.5 H (36.0-66.0) % Immature Gran % (Auto) 0.7 H (0.00-0.4) % Nucleat RBC Rel Count 0.0 (0.00-0.1) % Eos # (Auto) 0.16 (0-0.5) x10^3/uL Immature Gran # (Auto) 0.09 H (0.00-0.03) x10^3u/L Absolute Lymphs (auto) 1.23 (1.0-4.6) x10^3/uL Absolute Monos (auto) 0.87 (0.0-1.3) x10^3/uL Absolute Nucleated RBC 0.00 (0.00-0.01) x10^3u/L Lymphocytes % 10.0 L (24.0-44.0) % Monocytes % 7.1 (0.0-12.0) % Eosinophils % 1.3 (0.00-5.0) % Basophils % 0.4 (0.0-0.4) % Absolute Granulocytes 9.85 H (1.4-6.9) x10^3/uL Basophils # 0.05 (0-0.4) x10^3/uL Sodium 138 (135-145) mmol/L Potassium 3.6 (3.5-5.1) mmol/L Chloride 113 H (98-107) mmol/L Carbon Dioxide 20 L (22-30) mmol/L Anion Gap 9.1 (5-15) MEQ/L BUN 14 (9-20) mg/dL Creatinine 1.18 (0.66-1.25) mg/dL Estimated GFR 64.0 ML/MIN Glucose 93 (74-106) mg/dL Calcium 7.7 L (8.4-10.2) mg/dL Magnesium 1.5 L (1.6-2.3) mg/dL Total Bilirubin 0.70 (0.2-1.3) mg/dL AST 32 (17-59) U/L ALT 21 (0-50) U/L Alkaline Phosphatase 67 (38-126) U/L Serum Total Protein 5.8 L (6.3-8.2) g/dL Albumin 2.9 L (3.5-5.0) g/dL Slides for Path Review YES Radiology Exams: Radiology Procedures Category Date Time Status ABDOMEN AND PELVIS W CONTRAST [CT] Stat Exams 08/03/23 13:09 Completed CHEST WITH CONTRAST [CT] Stat Exams 08/03/23 13:27 Completed LIVER OR SPLEEN [US] Routine Exams 08/03/23 08:00 Completed LUMBAR COMPLETE (MIN 4 VIEWS) Routine Exams 08/02/23 14:21 Completed Multi-Disciplinary Progress Notes: Multi-Disciplinary Progress Notes 08/03/23 13:20 (created 08/03/23 13:45) Respiratory Note by Sabine Huffman RT CALLED TO PT'S ROOM PER THE NURSES AIDE DUE TO SOB AND LOW O2 SATS. WHEN I ENTERED THE PT'S ROOM HE WAS VISIBLY SOB AND MOANING. PT'S O2 SATS WERE 90-91% ON ROOM AIR. PT WAS REPOSITIONED IN BED AND PLACED ON 2LPM VIA NASAL CANNULA. CRACKLES HEARD T/O ALL LUNG DAVIES. FERN PAVON WAS CALLED IN TO THE ROOM TO ASSESS THE PT AND NEW ORDERS GIVEN TO THE NURSE PER FERN. PT APPEARED TO BE BREATHING BETTER AFTER BEING REPOSITIONED IN BED AND PLACED ON THE OXYGEN. PT'S O2 SAT 96% ON THE 2LPM. Initialized on 08/03/23 13:45 - END OF NOTE Assessment/Plan (1) Abnormal liver diagnostic imaging Current Visit: Yes Status: Acute Code(s): R93.2 - ABNORMAL FINDINGS ON DX IMAGING OF LIVER AND BILIARY TRACT (2) Hypokalemia Current Visit: Yes Status: Acute Code(s): E87.6 - HYPOKALEMIA (3) Hypomagnesemia Current Visit: Yes Status: Acute Code(s): E83.42 - HYPOMAGNESEMIA (4) Joint pain Current Visit: Yes Status: Acute Code(s): M25.50 - PAIN IN UNSPECIFIED JOINT (5) Lactic acidosis Current Visit: Yes Status: Acute Code(s): E87.20 - ACIDOSIS, UNSPECIFIED (6) Viral gastroenteritis Current Visit: Yes Status: Acute Code(s): A08.4 - VIRAL INTESTINAL INFECTION, UNSPECIFIED (7) Chronic atrial fibrillation Current Visit: Yes Status: Chronic Code(s): I48.20 - CHRONIC ATRIAL FIBRILLATION, UNSPECIFIED (8) GERD (gastroesophageal reflux disease) Current Visit: Yes Status: Chronic Code(s): K21.9 - GASTRO-ESOPHAGEAL REFLUX DISEASE WITHOUT ESOPHAGITIS (9) Obesity (BMI 30.0-34.9) Current Visit: Yes Status: Chronic Code(s): E66.9 - OBESITY, UNSPECIFIED (10) Smoker Current Visit: Yes Status: Chronic Code(s): F17.200 - NICOTINE DEPENDENCE, UNSPECIFIED, UNCOMPLICATED (11) Acute renal insufficiency Current Visit: No Status: Acute Code(s): N28.9 - DISORDER OF KIDNEY AND URETER, UNSPECIFIED (12) Hypertension Current Visit: No Status: Acute Qualifiers: Hypertension type: essential hypertension Code(s): I10 - ESSENTIAL (PRIMARY) HYPERTENSION
[2023-08-04 05:51] LABS: ALBUMIN 3.2 g/dL (3.5-5.0); ANION GAP 10.3 MEQ/L (5-15); BILIRUBIN,TOTAL 0.8 mg/dL (0.2-1.3); Calcium 8.4 mg/dL (8.4-10.2); Creatinine 1 1.08 mg/dL (0.66-1.25); EST GLOMERULAR FILTRATION RATE 71.1 ML/MIN; Potassium 3.3 mmol/L (3.5-5.1)
[2023-08-04 05:55] LABS: Slide Review 1 YES
[2023-08-04] MEDS: Klor Con PO ONE ×2 (08:36→12:25)
[2023-08-04 09:32] VITALS: O2SAT 91
[2023-08-04 11:40] VITALS: BP 113/53; PULSE 63; TEMP 98.3
--- NOTE | 2023-08-04 12:20 | PCM.DS ---
Discharge Summary Date of Admission: 08/02/23 08:09 Date of Discharge: 08/04/23 Admitting Physician: SARA BLAND MD Primary Care Provider: ELIDIA OLIVAS DEANNA Allergies Allergies No Known Drug Allergies Allergy (Verified 08/01/23 23:52) Hospital Summary - Hospital Course Hospital Course: Mr. Ruiz is a 77 year old male that was admitted 08/02/23 experiencing symptoms of abdominal pain, SOB, diarrhea, H/A, body aches, and joint pain. Admitted with viral gastroenteritis, CRYSTAL, and lactic acidosis. CT scan without contrast showing what appears to be hepatic cysts and enlarged prostate gland otherwise unremarkable for acute findings. CT chest with tiny bilateral effusions, no PE. IP treatment with supportive therapies including IVF, anti-emetics, and electrolyte replenishment. Patient no longer with N/V/D. Labs improved. CRYSTAL resolved. Patient able to tolerate a full diet and requesting discharge. Advised follow up with PCP this week for lab recheck. Discharge Note New Diagnosis: Viral gastroenteritis/CRYSTAL New Medications: potassium/magnesium Follow Up: PCP Latest Assessment & Plan (1) Abnormal liver diagnostic imaging Current Visit: Yes Status: Acute Assessment & Plan: -- As seen on CT- Right hepatic lobe segment VII few small hypodense focal lesions; likely cysts. - US showing GB thickening and tiny hepatic lesion, CT with contrast suggested by radiology, will obtain Code(s): R93.2 - ABNORMAL FINDINGS ON DX IMAGING OF LIVER AND BILIARY TRACT (2) Hypokalemia Current Visit: Yes Status: Acute Assessment & Plan: -Secondary to GI loss -resolved Code(s): E87.6 - HYPOKALEMIA (3) Hypomagnesemia Current Visit: Yes Status: Acute Assessment & Plan: -Secondary to GI loss -Mag replenished Code(s): E83.42 - HYPOMAGNESEMIA (4) Joint pain Current Visit: Yes Status: Acute Assessment & Plan: - pt reports since sxs satrted last night - increased pain of BL shoulder, hips, knees, sacroiliac regions - XR lumbar back with chronic findings - Tylenol for pain Code(s): M25.50 - PAIN IN UNSPECIFIED JOINT (5) Lactic acidosis Current Visit: Yes Status: Acute Assessment & Plan: -resolved Code(s): E87.20 - ACIDOSIS, UNSPECIFIED (6) Viral gastroenteritis Current Visit: Yes Status: Acute Assessment & Plan: CT abd/Pelvis 08/01 IMPRESSION: 1. No CT evidence of renal or ureteric stones. 2. Right hepatic lobe segment VII few small hypodense focal lesions; likely cysts. U/S is advised. 3. Enlarged prostate. 4. Diverticulosis of the sigmoid and descending colon with no CT evidnece of diverticulitis - IVF - N/V/D resolved - tylenol for pain - WBC 21.1- likely reactive 08/02: -WBC trending down -overnight dirrheal episodes, Cdiff negative, immodium started, no further epidsodes this morning Code(s): A08.4 - VIRAL INTESTINAL INFECTION, UNSPECIFIED (7) Chronic atrial fibrillation Current Visit: Yes Status: Chronic Assessment & Plan: - Continue Eliquis - Tele Code(s): I48.20 - CHRONIC ATRIAL FIBRILLATION, UNSPECIFIED (8) GERD (gastroesophageal reflux disease) Current Visit: Yes Status: Chronic Assessment & Plan: - Continue home med pantoprazole Code(s): K21.9 - GASTRO-ESOPHAGEAL REFLUX DISEASE WITHOUT ESOPHAGITIS (9) Obesity (BMI 30.0-34.9) Current Visit: Yes Status: Chronic Assessment & Plan: - advised diet and exercise control Code(s): E66.9 - OBESITY, UNSPECIFIED (10) Smoker Current Visit: Yes Status: Chronic Assessment & Plan: - Advised cessation - He refused cessation information and explained he rarely smokes. Code(s): F17.200 - NICOTINE DEPENDENCE, UNSPECIFIED, UNCOMPLICATED (11) Acute renal insufficiency Current Visit: No Status: Acute Assessment & Plan: - 2;2 dehydration - IVF - creat 1.50 BL WNL 08/02: -resolved Code(s): N28.9 - DISORDER OF KIDNEY AND URETER, UNSPECIFIED (12) Hypertension Current Visit: No Status: Acute Qualifiers: Hypertension type: essential hypertension Assessment & Plan: - BP stable, continue home meds VTE: Eliquis PPI: pantoprazole Next of kin: , PHIL RUIZ [phone] D/c plan: 1-2 days Code status: SCO/DNR I spent 35 minutes [id number] with the patient on the day of discharge performing discharge exam, discussing hospital stay and discharge instructions with patient and caregivers, preparation of discharge records, prescriptions & referral forms and addressing any questions/concerns the patient had as documented above. - Vitals & Intake/Output Vital Signs: Vital Signs Temperature 98.3 F 08/04/23 11:40 Pulse Rate 63 08/04/23 11:40 Respiratory Rate 16 08/04/23 11:40 Blood Pressure 113/53 08/04/23 11:40 O2 Sat by Pulse Oximetry 91 L 08/04/23 11:40 Intake & Output: Intake & Output 08/02/23 08/03/23 08/04/23 08/05/23 11:59 11:59 11:59 11:59 Intake Total 60 4542 820 Balance 60 4542 820 Weight 94.1 kg 93.7 kg 91.1 kg - Lab Result Diagrams: 08/04/23 04:42 08/04/23 10:33 Lab Results-Last 24 Hrs: Lab Results-Last 24 Hours 08/02/23 08/04/23 08/04/23 Range/Units 09:30 04:42 04:42 WBC 12.3 H (4.0-10.5) x10^3/uL RBC 4.71 (4.1-5.6) x10^6/uL Hgb 13.9 (12.5-18.0) g/dL Hct 42.0 (42-50) % MCV 89.2 (78-100) fL MCH 29.5 (26-32) pg MCHC 33.1 (32-36) g/dL RDW 13.4 (11.5-14.0) % Plt Count 81 L (150-450) x10^3/uL MPV 11.2 H (7.5-11.0) fL Gran % 80.5 H (36.0-66.0) % Immature Gran % (Auto) 0.7 H (0.00-0.4) % Nucleat RBC Rel Count 0.0 (0.00-0.1) % Eos # (Auto) 0.16 (0-0.5) x10^3/uL Immature Gran # (Auto) 0.09 H (0.00-0.03) x10^3u/L Absolute Lymphs (auto) 1.23 (1.0-4.6) x10^3/uL Absolute Monos (auto) 0.87 (0.0-1.3) x10^3/uL Absolute Nucleated RBC 0.00 (0.00-0.01) x10^3u/L Lymphocytes % 10.0 L (24.0-44.0) % Monocytes % 7.1 (0.0-12.0) % Eosinophils % 1.3 (0.00-5.0) % Basophils % 0.4 (0.0-0.4) % Absolute Granulocytes 9.85 H (1.4-6.9) x10^3/uL Basophils # 0.05 (0-0.4) x10^3/uL Sodium (135-145) mmol/L Potassium (3.5-5.1) mmol/L Chloride (98-107) mmol/L Carbon Dioxide (22-30) mmol/L Anion Gap (5-15) MEQ/L BUN (9-20) mg/dL Creatinine (0.66-1.25) mg/dL Estimated GFR ML/MIN Glucose (74-106) mg/dL Calcium (8.4-10.2) mg/dL Magnesium 1.9 (1.6-2.3) mg/dL Total Bilirubin (0.2-1.3) mg/dL AST (17-59) U/L ALT (0-50) U/L Alkaline Phosphatase (38-126) U/L C-Reactive Prot, Quant 54 H (0-10) mg/L Serum Total Protein (6.3-8.2) g/dL Albumin (3.5-5.0) g/dL Slides for Path Review YES 08/04/23 08/04/23 Range/Units 04:42 10:33 WBC (4.0-10.5) x10^3/uL RBC (4.1-5.6) x10^6/uL Hgb (12.5-18.0) g/dL Hct (42-50) % MCV (78-100) fL MCH (26-32) pg MCHC (32-36) g/dL RDW (11.5-14.0) % Plt Count (150-450) x10^3/uL MPV (7.5-11.0) fL Gran % (36.0-66.0) % Immature Gran % (Auto) (0.00-0.4) % Nucleat RBC Rel Count (0.00-0.1) % Eos # (Auto) (0-0.5) x10^3/uL Immature Gran # (Auto) (0.00-0.03) x10^3u/L Absolute Lymphs (auto) (1.0-4.6) x10^3/uL Absolute Monos (auto) (0.0-1.3) x10^3/uL Absolute Nucleated RBC (0.00-0.01) x10^3u/L Lymphocytes % (24.0-44.0) % Monocytes % (0.0-12.0) % Eosinophils % (0.00-5.0) % Basophils % (0.0-0.4) % Absolute Granulocytes (1.4-6.9) x10^3/uL Basophils # (0-0.4) x10^3/uL Sodium 137 (135-145) mmol/L Potassium 3.3 L 3.3 L (3.5-5.1) mmol/L Chloride 107 (98-107) mmol/L Carbon Dioxide 23 (22-30) mmol/L Anion Gap 10.3 (5-15) MEQ/L BUN 11 (9-20) mg/dL Creatinine 1.08 (0.66-1.25) mg/dL Estimated GFR 71.1 ML/MIN Glucose 103 (74-106) mg/dL Calcium 8.4 (8.4-10.2) mg/dL Magnesium (1.6-2.3) mg/dL Total Bilirubin 0.80 (0.2-1.3) mg/dL AST 31 (17-59) U/L ALT 21 (0-50) U/L Alkaline Phosphatase 66 (38-126) U/L C-Reactive Prot, Quant (0-10) mg/L Serum Total Protein 6.0 L (6.3-8.2) g/dL Albumin 3.2 L (3.5-5.0) g/dL Slides for Path Review - Radiology Exams Ordered Rad Exams-Entire Visit: Radiology Procedures Category Date Time Status ABDOMEN AND PELVIS W CONTRAST [CT] Stat Exams 08/03/23 13:09 Completed CHEST WITH CONTRAST [CT] Stat Exams 08/03/23 13:27 Completed LIVER OR SPLEEN [US] Routine Exams 08/03/23 08:00 Completed LUMBAR COMPLETE (MIN 4 VIEWS) Routine Exams 08/02/23 14:21 Completed - Procedures and Test Procedures and Tests throughout Hospitalization: Therapy Orders & Screens 08/03/23 14:07 Oxygen NASAL CANNULA 2 lpm Comment: Diagnosis: Viral gastroenteritis/viral syndrome Discharge Exam General Appearance: no apparent distress Neurologic Exam: alert, oriented x 3, cooperative Eye Exam: PERRL Ears, Nose, Throat Exam: normal ENT inspection Neck Exam: normal inspection Respiratory Exam: normal breath sounds, lungs clear Cardiovascular Exam: regular rate/rhythm, normal heart sounds Gastrointestinal/Abdomen Exam: soft, normal bowel sounds Male Genitalia Exam: deferred Rectal Exam: deferred Back Exam: normal inspection Extremity Exam: normal inspection Skin Exam: pale Final Diagnosis/Problem List - Final Discharge Diagnosis/Problem (1) Abnormal liver diagnostic imaging Current Visit: Yes Status: Acute Code(s): R93.2 - ABNORMAL FINDINGS ON DX IMAGING OF LIVER AND BILIARY TRACT (2) Hypokalemia Current Visit: Yes Status: Acute Code(s): E87.6 - HYPOKALEMIA (3) Hypomagnesemia Current Visit: Yes Status: Acute Code(s): E83.42 - HYPOMAGNESEMIA (4) Joint pain Current Visit: Yes Status: Acute Code(s): M25.50 - PAIN IN UNSPECIFIED JOINT (5) Lactic acidosis Current Visit: Yes Status: Acute Code(s): E87.20 - ACIDOSIS, UNSPECIFIED (6) Viral gastroenteritis Current Visit: Yes Status: Acute Code(s): A08.4 - VIRAL INTESTINAL INFECTION, UNSPECIFIED (7) Chronic atrial fibrillation Current Visit: Yes Status: Chronic Code(s): I48.20 - CHRONIC ATRIAL FIBRILLATION, UNSPECIFIED (8) GERD (gastroesophageal reflux disease) Current Visit: Yes Status: Chronic Code(s): K21.9 - GASTRO-ESOPHAGEAL REFLUX DISEASE WITHOUT ESOPHAGITIS (9) Obesity (BMI 30.0-34.9) Current Visit: Yes Status: Chronic Code(s): E66.9 - OBESITY, UNSPECIFIED (10) Smoker Current Visit: Yes Status: Chronic Code(s): F17.200 - NICOTINE DEPENDENCE, UNSPECIFIED, UNCOMPLICATED (11) Acute renal insufficiency Current Visit: No Status: Acute Code(s): N28.9 - DISORDER OF KIDNEY AND URETER, UNSPECIFIED (12) Hypertension Current Visit: No Status: Acute Code(s): I10 - ESSENTIAL (PRIMARY) HYPERTENSION - Discharge Disposition: Home, Self-Care Condition: Stable Prescriptions: New Magnesium Oxide 400 mg [Mag-Ox 400] 400 mg PO DAILY 14 Days #14 tablet Potassium Chloride 20 meq PO DAILY 14 Days #14 tablet Continue Omeprazole 20 MG [Prilosec 20 mg] 20 mg PO DAILY Apixaban [Eliquis 5 mg Tablet] 5 mg PO BID Amlodipine Besylate 5 mg [Norvasc 5 mg] 5 mg PO DAILY Pravastatin Sodium 20 mg PO DAILY Metoprolol Tartrate 75 mg PO BID Losartan Potassium 50 mg [Cozaar 50 MG] 50 mg PO DAILY Lutein 20 mg PO DAILY Follow up with: ELIDIA OLIVAS MD [Primary Care Provider] - 08/13/23 10:45 am
== END 2023-08-04 15:00 | disposition home or self-care (01) ==
LOC: ED 23:46 → MED SURG 08-02 08:09
PROVIDERS: ADMIT Internal Medicine; ATTEND Internal Medicine
DX: R93.2 Abnormal findings on diagnostic imaging of liver and biliary tract (principal); E87.6 Hypokalemia; E83.42 Hypomagnesemia; M25.50 Pain in unspecified joint; E87.20 Acidosis, unspecified; A08.4 Viral intestinal infection, unspecified; I48.20 Chronic atrial fibrillation, unspecified; K21.9 Gastro-esophageal reflux disease without esophagitis; E66.9 Obesity, unspecified; F17.200 Nicotine dependence, unspecified, uncomplicated; N28.9 Disorder of kidney and ureter, unspecified; I10 Essential (primary) hypertension; E78.5 Hyperlipidemia, unspecified; Z79.01 Long term (current) use of anticoagulants; Z79.899 Other long term (current) drug therapy
CPT/HCPCS: 0241U; 36415; 71045; 71260; 72110; 74176; 74177; 76705; 80048; 80053; 81001; 83605; 83690; 83735; 84132; 84484; 85025; 85027; 85652; 86140; 87493; 93268; 94760; 96360; 96365; 96367; 99285; G0378; Q3014; J0456; J0696; J1940; J3480; A9270-GY; J3475

== ENCOUNTER 2023-10-07 10:16 | Emergency (ER) | payer MEDICARE ==
[2023-10-07 10:57] VITALS: TEMP 99.9
--- NOTE | 2023-10-07 11:13 | ERPHSYRPT ---
- History of Present Illness Time Seen by Provider: 10/07/23 11:00 Source: patient Exam Limitations: no limitations Patient Subjective Stated Complaint: vomiting, body aches, fever Triage Nursing Assessment: Pt brought to the ER by his , hypertensive, rates overall body pain and headache as 8/, pt was sick on Thursday, slept all day yesterday and then is sick again today, vomiting, body aches, fever, pulses normal, skin n/h/d, last bowel movement was Thursday and it was diarrhea, no difficulty breathing, laying in bed moaning Physician History: Pt states 2 days ago he has had vomiting x2, diarrhea x1, a constant left sided headache 8/10 in severity and generalized aches; a non-productive cough and left posterior thigh pain since yesterday. Pt denies abdominal pain. Pt states he also vomited twice this morning. Pt states there is no blood in the diarrhea or vomit. Allergies/Adverse Reactions: No Known Drug Allergies Allergy (Verified 10/07/23 10:56) Home Medications: Omeprazole 20 MG [Prilosec 20 mg] 20 mg PO DAILY 11/08/12 [History] Amlodipine Besylate 5 mg [Norvasc 5 mg] 5 mg PO DAILY 10/30/16 [History] Apixaban [Eliquis 5 mg Tablet] 5 mg PO BID 10/30/16 [History] Pravastatin Sodium 20 mg PO DAILY 12/22/18 [History] Metoprolol Tartrate 75 mg PO BID 12/15/20 [History] Losartan Potassium 50 mg [Cozaar 50 MG] 50 mg PO DAILY 08/02/23 [History] Lutein 20 mg PO DAILY 08/02/23 [History] Hx Tetanus, Diphtheria Vaccination/Date Given: Yes Hx Influenza Vaccination/Date Given: Yes Hx Pneumococcal Vaccination/Date Given: Yes Travel Risk - International Travel Have you traveled outside of the country in past 3 weeks: No - Emerging Infectious Disease Are you exhibiting symptoms associated with any current EIDs: Yes Symptoms: Joint Pain, Vomitting - Review of Systems Respiratory: Cough, No Dyspnea Cardiac: No Chest Pain Abdominal/Gastrointestinal: Nausea, Vomiting, Diarrhea, No Abdominal Pain Genitourinary Symptoms: No Dysuria Musculoskeletal: Other (generalized aches) Neurological: Headache - Past Medical History Pertinent Past Medical History: Yes Neurological History: No Pertinent History ENT History: No Pertinent History Cardiac History: Angina, Arrhythmia, High Cholesterol, Hypertension Respiratory History: No Pertinent History Endocrine Medical History: No Pertinent History Musculoskeletal History: Other GI Medical History: No Pertinent History History: No Pertinent History Psycho-Social History: No Pertinent History Male Reproductive Disorders: No Pertinent History Other Medical History: mild coronary blockage without intervention. Hx Laminectomy L4-L5 back surgery in 1980. - Past Surgical History Past Surgical History: Yes Neuro Surgical History: No Pertinent History Cardiac: Cardiac Catheterization Respiratory: No Pertinent History Gastrointestinal: No Pertinent History Genitourinary: No Pertinent History Musculoskeletal: Other Male Surgical History: No Pertinent History Other Surgical History: T&A, BACK SURGERY - Social History Smoking Status: Current every day smoker How long have you smoked: 60 Exposure to second hand smoke: Yes Drug Use: none Patient Lives Alone: No () - Social Determinants of Health Will the patient participate in the screening: Declined to provide - Nursing Vital Signs Nursing Vital Signs: Initial Vital Signs Temperature 99.9 F 10/07/23 10:48 Pulse Rate 78 10/07/23 10:48 Respiratory Rate 29 H 10/07/23 10:48 Blood Pressure 155/78 10/07/23 10:48 O2 Sat by Pulse Oximetry 95 10/07/23 10:48 Pain Scale Pain Intensity 8 - Physical Exam General Appearance: alert Eye Exam: eyes nml inspection Ears, Nose, Throat Exam: TMs normal, pharyngeal erythema (mild) Neck Exam: normal inspection Respiratory Exam: lungs clear Cardiovascular Exam: normal heart sounds Gastrointestinal/Abdominal Exam: normal bowel sounds Back Exam: normal inspection Extremity Exam: normal range of motion, tenderness (milkd tenderness over left posterior thigh) Mental Status Exam: alert, 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 Exam: normal speech Motor/Sensory Exam: no motor deficit, no sensory deficit Skin Exam: warm, dry SpO2 Interpretation: normal SpO2: 95 O2 Delivery: Room Air - Course Nursing assessment & vital signs reviewed: Yes - CT Exams Head CT Interpretation: Discussed w/radiologist (Normal CT head) Abdomen/Pelvis CT Interpretation: Discussed w/radiologist (No new/acute findings ) - Radiology Ultrasound Exam Venous Lower Extremity Ultrasound: discussed w/radiologist (Left leg negative for DVT) Ordered Tests: Active Orders 24 hr Category Date Time Status IV Insertion STAT Care 10/07/23 11:15 Active ABDOMEN AND PELVIS W/0 CONTRAS [CT] Stat Exams 10/07/23 11:16 Completed HEAD WITHOUT CONTRAST [CT] Stat Exams 10/07/23 11:17 Completed VENOUS UNILAT/LIMITED EXTREMIT [US] Stat Exams 10/07/23 11:18 Completed AMYLASE Stat Lab 10/07/23 11:30 Completed BLOOD CULTURE Stat Lab 10/07/23 11:40 Received CBC W DIFF Stat Lab 10/07/23 11:30 Completed CMP Stat Lab 10/07/23 11:30 Completed CULTURE,URINE Stat Lab 10/07/23 13:35 Received LIPASE Stat Lab 10/07/23 11:30 Completed Lactic Acid Stat Lab 10/07/23 11:15 Completed MAGNESIUM Stat Lab 10/07/23 11:30 Completed UA W/RFX UR CULTURE Stat Lab 10/07/23 13:35 Completed Medication Summary Discontinued Medications Generic Name Dose Route Start Last Admin Trade Name Freq PRN Reason Stop Dose Admin Sodium Chloride 1,000 mls @ 999 mls/hr 10/07/23 11:15 10/07/23 12:56 Sodium Chloride 0.9% 1000 Ml IV 10/07/23 12:15 Infused .Q1H1M STA Infusion Sodium Chloride Confirm 10/07/23 11:26 Sodium Chloride 0.9% 1000 Ml Administered 10/07/23 11:27 Dose 1,000 mls @ ud .ROUTE .STK-MED ONE Acetaminophen 1,000 mg in 100 mls @ 400 mls/hr 10/07/23 12:07 10/07/23 12:51 Ofirmev IV 10/07/23 12:21 400 mls/hr 1HRPRIOR ONE Administration Morphine Sulfate 4 mg 10/07/23 13:40 10/07/23 13:52 Morphine Sulfate 4 Mg/Ml Injection IV 10/07/23 13:41 4 mg STAT ONE Administration Morphine Sulfate Confirm 10/07/23 13:50 Morphine Sulfate 4 Mg/Ml Injection Administered 10/07/23 13:51 Dose 4 mg .ROUTE .STK-MED ONE Ondansetron HCl 4 mg 10/07/23 11:15 10/07/23 11:28 Ondansetron Hcl 4 Mg/2 Ml Vial IV 10/07/23 11:16 4 mg STAT ONE Administration Ondansetron HCl Confirm 10/07/23 11:25 Ondansetron Hcl 4 Mg/2 Ml Vial Administered 10/07/23 11:26 Dose 4 mg .ROUTE .STK-MED ONE Lab/Rad Data: Laboratory Result Diagrams 10/07/23 11:30 10/07/23 11:30 Laboratory Results 10/07/23 10/07/23 10/07/23 Range/Units 13:35 11:48 11:48 WBC (4.23-9.07) x10^3/uL RBC (4.63-6.08) x10^6/uL Hgb (13.7-17.5) g/dL Hct (40.1-51.0) % MCV (79.0-92.2) fL MCH (25.7-32.2) pg MCHC (32.3-36.5) g/dL RDW (11.6-14.4) % Plt Count (163-337) x10^3/uL MPV (9.4-12.4) fL Gran % (34.0-67.9) % Immature Gran % (Auto) (0.001-0.429) % Nucleat RBC Rel Count (0.00-0.2) % Eos # (Auto) (0.04-0.54) x10^3/uL Immature Gran # (Auto) (0.001-0.031) x10^3u/L Absolute Lymphs (auto) (1.32-3.57) x10^3/uL Absolute Monos (auto) (0.30-0.82) x10^3/uL Absolute Nucleated RBC (0.00-0.012) x10^3u/L Lymphocytes % (21.8-53.1) % Monocytes % (5.3-12.2) % Eosinophils % (0.8-7.0) % Basophils % (0.2-1.2) % Absolute Granulocytes (1.78-5.38) x10^3/uL Basophils # (0.01-0.08) x10^3/uL Sodium (135-145) mmol/L Potassium (3.5-5.1) mmol/L Chloride (98-107) mmol/L Carbon Dioxide (22-30) mmol/L Anion Gap (5-15) MEQ/L BUN (9-20) mg/dL Creatinine (0.66-1.25) mg/dL Estimated GFR ML/MIN Glucose (74-106) mg/dL Lactic Acid (0.4-2.0) Calcium (8.4-10.2) mg/dL Magnesium (1.6-2.3) mg/dL Total Bilirubin (0.2-1.3) mg/dL AST (17-59) U/L ALT (0-50) U/L Alkaline Phosphatase (38-126) U/L Serum Total Protein (6.3-8.2) g/dL Albumin (3.5-5.0) g/dL Amylase (30-110) U/L Lipase (23-300) U/L Urine Color Dark Yellow (Yellow) Urine Appearance Clear (Clear) Urine pH 6.0 (4.6-8.0) Ur Specific [place] >=1.030 A (1.005-1.030) Urine Protein 300 A (Negative) Urine Glucose (UA) Negative (Negative) mg/dL Urine Ketones Trace A (Negative) Urine Blood Large A (Negative) Urine Nitrite Negative (Negative) Urine Bilirubin Negative (Negative) Urine Urobilinogen 1.0 A (0.2) mg/dL Ur Leukocyte Esterase Negative (Negative) U Hyaline Cast (Auto) 3-5 A (0-2) /LPF Urine Microscopic RBC 51-100 A (0-5) /HPF Urine Microscopic WBC 0-2 (0-5) /HPF Ur Epithelial Cells None Seen (None Seen) /HPF Urine Bacteria None Seen (None Seen) /HPF Urine Culture Reflexed YES (NO) Influenza Type A Ag NEGATIVE (NEGATIVE) Influenza Type B Ag NEGATIVE (NEGATIVE) RSV (PCR) NEGATIVE (NEGATIVE) SARS-CoV-2 (PCR) NEGATIVE (NEGATIVE) Group A Strep Antibody NOT DETECTED (NEGATIVE) Slides for Path Review 10/07/23 10/07/23 10/07/23 Range/Units 11:30 11:30 11:30 WBC 12.8 H (4.23-9.07) x10^3/uL RBC 4.92 (4.63-6.08) x10^6/uL Hgb 14.7 (13.7-17.5) g/dL Hct 43.9 (40.1-51.0) % MCV 89.2 (79.0-92.2) fL MCH 29.9 (25.7-32.2) pg MCHC 33.5 (32.3-36.5) g/dL RDW 13.5 (11.6-14.4) % Plt Count 126 L (163-337) x10^3/uL MPV 10.9 (9.4-12.4) fL Gran % 81.2 H (34.0-67.9) % Immature Gran % (Auto) 0.6 H (0.001-0.429) % Nucleat RBC Rel Count 0.0 (0.00-0.2) % Eos # (Auto) 0.01 L (0.04-0.54) x10^3/uL Immature Gran # (Auto) 0.08 H (0.001-0.031) x10^3u/L Absolute Lymphs (auto) 0.68 L (1.32-3.57) x10^3/uL Absolute Monos (auto) 1.59 H (0.30-0.82) x10^3/uL Absolute Nucleated RBC 0.00 (0.00-0.012) x10^3u/L Lymphocytes % 5.3 L (21.8-53.1) % Monocytes % 12.4 H (5.3-12.2) % Eosinophils % 0.1 L (0.8-7.0) % Basophils % 0.4 (0.2-1.2) % Absolute Granulocytes 10.42 H (1.78-5.38) x10^3/uL Basophils # 0.05 (0.01-0.08) x10^3/uL Sodium 135 (135-145) mmol/L Potassium 3.7 (3.5-5.1) mmol/L Chloride 103 (98-107) mmol/L Carbon Dioxide 22 (22-30) mmol/L Anion Gap 12.3 (5-15) MEQ/L BUN 15 (9-20) mg/dL Creatinine 1.13 (0.66-1.25) mg/dL Estimated GFR 67.4 ML/MIN Glucose 151 H (74-106) mg/dL Lactic Acid (0.4-2.0) Calcium 9.2 (8.4-10.2) mg/dL Magnesium 1.7 (1.6-2.3) mg/dL Total Bilirubin 1.10 (0.2-1.3) mg/dL AST 30 (17-59) U/L ALT 23 (0-50) U/L Alkaline Phosphatase 60 (38-126) U/L Serum Total Protein 7.3 (6.3-8.2) g/dL Albumin 4.2 (3.5-5.0) g/dL Amylase 62 (30-110) U/L Lipase 24 (23-300) U/L Urine Color (Yellow) Urine Appearance (Clear) Urine pH (4.6-8.0) Ur Specific [place] (1.005-1.030) Urine Protein (Negative) Urine Glucose (UA) (Negative) mg/dL Urine Ketones (Negative) Urine Blood (Negative) Urine Nitrite (Negative) Urine Bilirubin (Negative) Urine Urobilinogen (0.2) mg/dL Ur Leukocyte Esterase (Negative) U Hyaline Cast (Auto) (0-2) /LPF Urine Microscopic RBC (0-5) /HPF Urine Microscopic WBC (0-5) /HPF Ur Epithelial Cells (None Seen) /HPF Urine Bacteria (None Seen) /HPF Urine Culture Reflexed (NO) Influenza Type A Ag (NEGATIVE) Influenza Type B Ag (NEGATIVE) RSV (PCR) (NEGATIVE) SARS-CoV-2 (PCR) (NEGATIVE) Group A Strep Antibody (NEGATIVE) Slides for Path Review YES 10/07/23 Range/Units 11:15 WBC (4.23-9.07) x10^3/uL RBC (4.63-6.08) x10^6/uL Hgb (13.7-17.5) g/dL Hct (40.1-51.0) % MCV (79.0-92.2) fL MCH (25.7-32.2) pg MCHC (32.3-36.5) g/dL RDW (11.6-14.4) % Plt Count (163-337) x10^3/uL MPV (9.4-12.4) fL Gran % (34.0-67.9) % Immature Gran % (Auto) (0.001-0.429) % Nucleat RBC Rel Count (0.00-0.2) % Eos # (Auto) (0.04-0.54) x10^3/uL Immature Gran # (Auto) (0.001-0.031) x10^3u/L Absolute Lymphs (auto) (1.32-3.57) x10^3/uL Absolute Monos (auto) (0.30-0.82) x10^3/uL Absolute Nucleated RBC (0.00-0.012) x10^3u/L Lymphocytes % (21.8-53.1) % Monocytes % (5.3-12.2) % Eosinophils % (0.8-7.0) % Basophils % (0.2-1.2) % Absolute Granulocytes (1.78-5.38) x10^3/uL Basophils # (0.01-0.08) x10^3/uL Sodium (135-145) mmol/L Potassium (3.5-5.1) mmol/L Chloride (98-107) mmol/L Carbon Dioxide (22-30) mmol/L Anion Gap (5-15) MEQ/L BUN (9-20) mg/dL Creatinine (0.66-1.25) mg/dL Estimated GFR ML/MIN Glucose (74-106) mg/dL Lactic Acid 1.7 (0.4-2.0) Calcium (8.4-10.2) mg/dL Magnesium (1.6-2.3) mg/dL Total Bilirubin (0.2-1.3) mg/dL AST (17-59) U/L ALT (0-50) U/L Alkaline Phosphatase (38-126) U/L Serum Total Protein (6.3-8.2) g/dL Albumin (3.5-5.0) g/dL Amylase (30-110) U/L Lipase (23-300) U/L Urine Color (Yellow) Urine Appearance (Clear) Urine pH (4.6-8.0) Ur Specific [place] (1.005-1.030) Urine Protein (Negative) Urine Glucose (UA) (Negative) mg/dL Urine Ketones (Negative) Urine Blood (Negative) Urine Nitrite (Negative) Urine Bilirubin (Negative) Urine Urobilinogen (0.2) mg/dL Ur Leukocyte Esterase (Negative) U Hyaline Cast (Auto) (0-2) /LPF Urine Microscopic RBC (0-5) /HPF Urine Microscopic WBC (0-5) /HPF Ur Epithelial Cells (None Seen) /HPF Urine Bacteria (None Seen) /HPF Urine Culture Reflexed (NO) Influenza Type A Ag (NEGATIVE) Influenza Type B Ag (NEGATIVE) RSV (PCR) (NEGATIVE) SARS-CoV-2 (PCR) (NEGATIVE) Group A Strep Antibody (NEGATIVE) Slides for Path Review - Progress Progress: improved Progress Note: 10/07/23 16:50 Pt wants to go home. Counseled pt/family regarding: lab results, diagnosis, need for follow-up, rad results Medical Desision Making - Diagnostic Testing Diagnostic test were ordered, analyzed, and reviewed by me: Yes Radiological Interpretation: Discussed w/ radiologist - Departure Departure Disposition: Home Clinical Impression: Vomiting, Diarrhea, Headache, Left thigh pain Condition: Stable Critical Care Time: No Referrals: ELIDIA OLIVAS MD [Primary Care Provider] - Follow up/PCP as directed Instructions: Nausea and Vomiting, Adult ED, Diarrhea, Adult ED, Headache, Adult ED Additional Instructions: Follow up with private doctor tomorrow. Prescriptions: Ondansetron ODT 4 MG [Zofran Odt 4 mg] 4 mg PO Q6H PRN PRN #10 tablet PRN Reason: Nausea
[2023-10-07] MEDS ORDERED: Zofran 4 MG/2 ML VIAL ONE (11:25)
[2023-10-07] MEDS ORDERED: Sodium Chloride 0.9% 1000 ML 1,000 ML ONE (11:26)
[2023-10-07] MEDS: Sodium Chloride 0.9% 1000 ML 1,000 ML IV STA (11:28)
[2023-10-07] MEDS: Zofran 4 MG/2 ML VIAL IV ONE (11:28)
[2023-10-07 11:55] LABS: Absolute Neutrophil Ct (ANC) 10.42 x10^3/uL (1.78-5.38); BASOPHIL % 0.4 % (0.2-1.2); Basophil (Absolute #) 0.05 x10^3/uL (0.01-0.08); Eosinophil % 0.1 % (0.8-7.0); Eosinophil (Absolute #) 0.01 x10^3/uL (0.04-0.54); Hematocrit 43.9 % (40.1-51.0); Hemoglobin 14.7 g/dL (13.7-17.5); IMMATURE GRAN # 0.08 x10^3u/L (0.001-0.031); IMMATURE GRAN % 0.6 % (0.001-0.429); Lymphocyte (Absolute #) 0.68 x10^3/uL (1.32-3.57); Lymphocytes % 5.3 % (21.8-53.1); Mean Cell Volume 89.2 fL (79.0-92.2); Mean Corpuscular Hemoglobin 29.9 pg (25.7-32.2); Mean Corpuscular Hgb Concent. 33.5 g/dL (32.3-36.5); Mean Platelet Volume 10.9 fL (9.4-12.4); Monocyte (Absolute #) 1.59 x10^3/uL (0.30-0.82); Monocytes % 12.4 % (5.3-12.2); Neutrophil % 81.2 % (34.0-67.9); Platelet Count 126 x10^3/uL (163-337); Red Blood Count 4.92 x10^6/uL (4.63-6.08); Red Cell Distribution Width 13.5 % (11.6-14.4); White Blood Count 12.8 x10^3/uL (4.23-9.07)
[2023-10-07 12:03] LABS: ALBUMIN 4.2 g/dL (3.5-5.0); ANION GAP 12.3 MEQ/L (5-15); BILIRUBIN,TOTAL 1.1 mg/dL (0.2-1.3); Calcium 9.2 mg/dL (8.4-10.2); Creatinine 1 1.13 mg/dL (0.66-1.25); EST GLOMERULAR FILTRATION RATE 67.4 ML/MIN; Potassium 3.7 mmol/L (3.5-5.1); Total Protein 7.3 g/dL (6.3-8.2)
--- NOTE | 2023-10-07 12:22 | XRAY ---
Indication: Left-sided pain. Two-dimensional sonogram and color Doppler imaging major venous vessels left leg performed. Comparison: None No thrombus seen in the examined the deep venous vessels left leg including greater saphenous vein. Veins demonstrate normal compressibility. Venous waveforms are normal with and without augmentation. Impression: Left leg negative for DVT.
[2023-10-07 12:25] LABS: INFLUENZA A NEGATIVE (NEGATIVE); INFLUENZA B NEGATIVE (NEGATIVE); RESPIRATORY SYNCTIAL VIRUS NEGATIVE (NEGATIVE); SARS-CoV-2 Xpert Express NEGATIVE (NEGATIVE)
--- NOTE | 2023-10-07 12:46 | XRAY ---
Indication: Fever, headache, vomiting, and bodyaches. Multiple contiguous axial images obtained through the head without contrast. Comparison: None Normal appearing brain parenchyma, ventricles, and bony calvarium for patient's age. Visualized paranasal sinuses and mastoid air cells are clear. Impression: Normal CT head without contrast exam.
--- NOTE | 2023-10-07 12:50 | XRAY ---
Indication: Fever, headache, bodyaches, and vomiting. Multiple contiguous axial images obtained through the abdomen and pelvis without contrast. Comparison: August 07, 2023 Lung bases demonstrates minimal dependent atelectasis. No infiltrate or effusion. Heart not enlarged. Noncontrasted stomach and bowel loops appear nonobstructed with normal appendix. Again scattered descending and sigmoid diverticulosis without diverticulitis. Stable tiny right lobe hepatic cyst, small left renal cysts, a few petechial chronic pancreatitis calcifications, and enlarged prostate gland. No free fluid/air. Remaining liver, gallbladder, pancreas spleen, adrenal glands, kidneys, ureters, and bladder are unremarkable for noncontrast exam. Again moderate scattered aortoiliac calcifications without AAA. Osseous structures intact again with osteopenia, mild/moderate degenerative changes throughout the spine, and mild degenerative changes both hips. Impression: Again chronic findings including colonic diverticulosis, hepatic cyst, chronic pancreatitis calcifications, left renal cysts, enlarged prostate gland, chronic bony findings, and arteriosclerotic disease. No new/acute findings on this noncontrast exam.
[2023-10-07] MEDS: OFIRMEV 1,000 MG/100 ML ML IV ONE (12:51)
[2023-10-07 13:01] LABS: Slide Review 1 YES
[2023-10-07] MEDS ORDERED: MORPHINE SULFATE 4 MG INJ ONE (13:50)
[2023-10-07] MEDS: MORPHINE SULFATE 4 MG INJ IV ONE (13:52)
[2023-10-07 14:26] LABS: Appearance Clear (Clear); Bacteria None Seen /HPF (None Seen); Bilirubin Negative (Negative); Blood Large (Negative); Epithelial Cells None Seen /HPF (None Seen); Glucose, Urine Negative (Negative); Ketones Trace (Negative); Leukocyte Esterase Negative (Negative); Nitrite Negative (Negative); Protein,Urine Dip 300 (Negative); RBC 51-100 /HPF (0-5); Specific Gravity >=1.030 (1.005-1.030); WBC 0-2 /HPF (0-5)
[2023-10-07 14:46] LABS: ADD URINE CULTURE? YES (NO)
[2023-10-07 16:48] VITALS: O2SAT 95
[2023-10-07 17:11] VITALS: BP 112/91; PULSE 88; RESP 20
== END 2023-10-07 17:10 | disposition home or self-care (01) ==
LOC: ED 10:16
DX: R11.2 Nausea with vomiting, unspecified (principal); R19.7 Diarrhea, unspecified; R51.9 Headache, unspecified; M79.652 Pain in left thigh; M79.10 Myalgia, unspecified site; E78.5 Hyperlipidemia, unspecified; I10 Essential (primary) hypertension; Z79.01 Long term (current) use of anticoagulants; Z79.899 Other long term (current) drug therapy; Z72.0 Tobacco use
CPT/HCPCS: 0241U; 36000; 36415; 70450; 74176; 80053; 81001; 82150; 83605; 83690; 83735; 85025; 87040; 87077; 87086; 87186; 87651; 93971; 96360; 96374; 96375; 99284; J2270; J2405

== ENCOUNTER 2023-12-26 09:44 | Emergency (ER) | payer MEDICARE ==
[2023-12-26 09:57] VITALS: TEMP 97.3
[2023-12-26] MEDS ORDERED: DUONEB 0.5-3 MG/3 ml Neb IH ONE (10:09)
[2023-12-26] MEDS ORDERED: PULMICORT 0.5 MG/2 ML RESPULES IH ONE (10:14)
[2023-12-26] MEDS: DUONEB 0.5-3 MG/3 ml Neb IH ONE (10:22)
[2023-12-26] MEDS: PULMICORT 0.5 MG/2 ML RESPULES IH ONE (10:23)
--- NOTE | 2023-12-26 10:40 | ERPHSYRPT ---
- History of Present Illness Time Seen by Provider: 12/26/23 10:37 Source: patient Exam Limitations: no limitations Patient Subjective Stated Complaint: C/O SOB with increasing severity since 12/20/23. Patient went to the [facility] on 12/22/23 and diagnosed with bronchitis. Patient indicates the medicine received there isn't helping. Triage Nursing Assessment: Patient ambulated back to ER; refused W/C. He is SOB with exertion. A non-productive cough noted during assessment. Right lung base is diminished. GARCIA WNL. Patient is alert and oriented. Physician History: C/O SOB with increasing severity since 12/20/23. Patient went to the [facility] on 12/22/23 and diagnosed with bronchitis. Patient indicates the medicine received there isn't helping. Timing/Duration: day(s) (3-4 days) Activities at Onset: none Severity of Dyspnea-Max: moderate Severity of Dyspnea-Current: moderate Associated Symptoms: cough, wheezing Allergies/Adverse Reactions: No Known Drug Allergies Allergy (Verified 12/26/23 09:45) Home Medications: Omeprazole 20 MG [Prilosec 20 mg] 20 mg PO DAILY 11/08/12 [History] Apixaban [Eliquis 5 mg Tablet] 5 mg PO BID 10/30/16 [History] Pravastatin Sodium 20 mg PO DAILY 12/22/18 [History] Losartan Potassium 50 mg [Cozaar 50 MG] 100 mg PO DAILY 08/02/23 [History] Amiodarone HCl [Pacerone] 200 mg PO DAILY 12/26/23 [History] Hydrochlorothiazide 25 mg [hydroDIURIL 25 MG] 12.5 mg PO DAILY 12/26/23 [History] Lutein [Natural Lutein] 20 mg PO DAILY 12/26/23 [History] Metoprolol Tartrate 25 mg [Lopressor 25MG Tab] 25 mg PO BID 12/26/23 [History] Hx Tetanus, Diphtheria Vaccination/Date Given: Yes Hx Influenza Vaccination/Date Given: Yes (every year) Hx Pneumococcal Vaccination/Date Given: Yes (03/2023) Immunizations Up to Date: Yes Travel Risk - International Travel Have you traveled outside of the country in past 3 weeks: No - Emerging Infectious Disease Are you exhibiting symptoms associated with any current EIDs: Yes Symptoms: Cough: New Onset, Fever, Shortness of Breath - Review of Systems Constitutional: No Fever, No Chills Eyes: No Symptoms Ears, Nose, & Throat: No Symptoms Respiratory: Cough, Dyspnea, Dyspnea on Exertion (PHELPS), Wheezing Cardiac: No Chest Pain, No Edema, No Syncope Abdominal/Gastrointestinal: No Abdominal Pain, No Nausea, No Vomiting, No Diarrhea Genitourinary Symptoms: No Dysuria Musculoskeletal: No Back Pain, No Neck Pain Skin: No Rash Neurological: No Dizziness, No Focal Weakness, No Sensory Changes Psychological: No Symptoms Endocrine: No Symptoms All Other Systems: Reviewed and Negative - Past Medical History Pertinent Past Medical History: Yes Neurological History: No Pertinent History ENT History: No Pertinent History Cardiac History: Angina, Arrhythmia, High Cholesterol, Hypertension Respiratory History: No Pertinent History Endocrine Medical History: No Pertinent History Musculoskeletal History: Other GI Medical History: No Pertinent History History: No Pertinent History Psycho-Social History: No Pertinent History Male Reproductive Disorders: No Pertinent History Other Medical History: mild coronary blockage without intervention, 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 - Social History Smoking Status: Current every day smoker How long have you smoked: 60 Exposure to second hand smoke: No Drug Use: none Patient Lives Alone: No () - Social Determinants of Health Will the patient participate in the screening: Yes Do you worry about a steady place to live?: No Do you have any problems with any of the following?: No known problems In the past 12 months,have you had to go without utilities?: No Transportation Issues: No Has anyone in your support network made you feel unsafe?: No Have you or anyone in your house had to go without enough: No - Nursing Vital Signs Nursing Vital Signs: Initial Vital Signs Pulse Rate 58 L 12/26/23 09:42 Respiratory Rate 23 12/26/23 09:42 Blood Pressure 143/62 12/26/23 09:42 O2 Sat by Pulse Oximetry 96 12/26/23 09:42 Pain Scale Pain Intensity 0 - Physical Exam General Appearance: moderate distress, alert Eye Exam: PERRL/EOMI Neck Exam: normal inspection, supple Respiratory Exam: respiratory distress, diminished breath sounds, accessory muscle use, wheezing Cardiovascular/Chest Exam: normal heart sounds, regular rate/rhythm Abdominal/Gastrointestinal Exam: soft, No tenderness, No distention, No mass Extremity Exam: non-tender, normal range of motion, normal inspection, no calf tenderness, no pedal edema Neurologic Exam: alert, oriented x 3, cooperative, academic support specialist II-XII nml as tested, sensation nml, No motor deficits Skin Exam: normal color, warm, No dry SpO2 Interpretation: normal SpO2: 96 O2 Delivery: Room Air - Course Nursing assessment & vital signs reviewed: Yes EKG Interpreted by Me: A-fib Rhythm Strip: Atrial Fibrillation - Radiology Exams Chest X-ray Interpretation: Interpreted by me, Reviewed by me, No Pneumonia (COPD ch anges) Ordered Tests: Active Orders 24 hr Category Date Time Status Genetic Counsellor STAT Care 12/26/23 09:58 Active EKG-ER Only STAT Care 12/26/23 09:57 Active IV Insertion STAT Care 12/26/23 09:57 Active Pulse Oximetry (ED) STAT Care 12/26/23 09:57 Active CHEST 1 VIEW (PORTABLE) Stat Exams 12/26/23 09:58 Taken CBC W DIFF Stat Lab 12/26/23 10:30 Completed CMP Stat Lab 12/26/23 10:30 Completed D-DIMER QUANTITATIVE Stat Lab 12/26/23 10:30 Completed NT PRO BNPII Stat Lab 12/26/23 10:30 Completed TROPONIN Q4H Lab 12/26/23 10:30 Completed TROPONIN Q4H Lab 12/26/23 14:00 Ordered TROPONIN Q4H Lab 12/26/23 18:00 Ordered Respiratory Therapy Assessment DAILY RT 12/26/23 10:24 Completed Medication Summary Discontinued Medications Generic Name Dose Route Start Last Admin Trade Name Freq PRN Reason Stop Dose Admin Albuterol/Ipratropium 3 ml 12/26/23 10:00 12/26/23 10:22 Ipratropium/Albuterol Sulfate 3 Ml Ampul.Neb IH 12/26/23 10:01 3 ml STAT ONE Administration Albuterol/Ipratropium Confirm 12/26/23 10:09 Ipratropium/Albuterol Sulfate 3 Ml Ampul.Neb Administered 12/26/23 10:10 Dose 3 ml IH .STK-MED ONE Budesonide 0.5 mg 12/26/23 10:01 12/26/23 10:23 Budesonide 0.5 Mg/2 Ml Ampul.Neb. IH 12/26/23 10:02 0.5 mg NOW ONE Administration Methylprednisolone Sodium 0 mg 12/26/23 11:03 12/26/23 11:12 Succinate 125 mg/ Sterile IV 12/26/23 11:04 125 mg Water 2 ml STAT ONE Administration Ceftriaxone Sodium 1 gm in 100 mls @ 200 mls/hr 12/26/23 11:02 12/26/23 11:11 Rocephin 1 Gm / 100 Ml Nacl IV 12/26/23 11:31 100 mls/hr STAT ONE 100 mls/hr Administration Ceftriaxone Sodium Confirm 12/26/23 11:11 Rocephin 1 Gm / 100 Ml Nacl Administered 12/26/23 11:12 Dose 1 gm in 100 mls @ ud IV .STK-MED ONE Methylprednisolone Sodium Succinate Confirm 12/26/23 11:11 Methylprednis Sod Succ 125 Mg/2 Ml Vial Administered 12/26/23 11:12 Dose 125 mg .ROUTE .STK-MED ONE Sterile Water Confirm 12/26/23 11:11 Water For Injection,Sterile 10 Ml Vial Administered 12/26/23 11:12 Dose 10 ml IJ .STK-MED ONE Lab/Rad Data: Laboratory Result Diagrams 12/26/23 10:30 12/26/23 10:30 Laboratory Results 12/26/23 12/26/23 12/26/23 Range/Units 10:30 10:30 10:30 WBC (4.23-9.07) x10^3/uL RBC (4.63-6.08) x10^6/uL Hgb (13.7-17.5) g/dL Hct (40.1-51.0) % MCV (79.0-92.2) fL MCH (25.7-32.2) pg MCHC (32.3-36.5) g/dL RDW (11.6-14.4) % Plt Count (163-337) x10^3/uL MPV (9.4-12.4) fL Gran % (34.0-67.9) % Immature Gran % (Auto) (0.001-0.429) % Nucleat RBC Rel Count (0.00-0.2) % Eos # (Auto) (0.04-0.54) x10^3/uL Immature Gran # (Auto) (0.001-0.031) x10^3u/L Absolute Lymphs (auto) (1.32-3.57) x10^3/uL Absolute Monos (auto) (0.30-0.82) x10^3/uL Absolute Nucleated RBC (0.00-0.012) x10^3u/L Lymphocytes % (21.8-53.1) % Monocytes % (5.3-12.2) % Eosinophils % (0.8-7.0) % Basophils % (0.2-1.2) % Absolute Granulocytes (1.78-5.38) x10^3/uL Basophils # (0.01-0.08) x10^3/uL D-Dimer 0.25 (0.0-0.50) mg/L Sodium 139 (135-145) mmol/L Potassium 3.5 (3.5-5.1) mmol/L Chloride 101 (98-107) mmol/L Carbon Dioxide 28 (22-30) mmol/L Anion Gap 13.9 (5-15) MEQ/L BUN 29 H (9-20) mg/dL Creatinine 1.49 H (0.66-1.25) mg/dL Estimated GFR 48.0 ML/MIN Glucose 136 H (74-106) mg/dL Calcium 9.8 (8.4-10.2) mg/dL Total Bilirubin 0.50 (0.2-1.3) mg/dL AST 30 (17-59) U/L ALT 26 (0-50) U/L Alkaline Phosphatase 55 (38-126) U/L Troponin I < 0.012 (0.000-0.033) ng/mL NT-Pro-B Natriuret Pep 84.2 (<300) pg/mL Serum Total Protein 7.2 (6.3-8.2) g/dL Albumin 4.2 (3.5-5.0) g/dL Influenza Type A Ag (NEGATIVE) Influenza Type B Ag (NEGATIVE) RSV (PCR) (NEGATIVE) SARS-CoV-2 (PCR) (NEGATIVE) 12/26/23 12/26/23 Range/Units 10:30 10:20 WBC 10.8 H (4.23-9.07) x10^3/uL RBC 4.95 (4.63-6.08) x10^6/uL Hgb 14.6 (13.7-17.5) g/dL Hct 44.0 (40.1-51.0) % MCV 88.9 (79.0-92.2) fL MCH 29.5 (25.7-32.2) pg MCHC 33.2 (32.3-36.5) g/dL RDW 13.2 (11.6-14.4) % Plt Count 185 (163-337) x10^3/uL MPV 10.9 (9.4-12.4) fL Gran % 69.7 H (34.0-67.9) % Immature Gran % (Auto) 0.6 H (0.001-0.429) % Nucleat RBC Rel Count 0.0 (0.00-0.2) % Eos # (Auto) 0.10 (0.04-0.54) x10^3/uL Immature Gran # (Auto) 0.07 H (0.001-0.031) x10^3u/L Absolute Lymphs (auto) 1.86 (1.32-3.57) x10^3/uL Absolute Monos (auto) 1.20 H (0.30-0.82) x10^3/uL Absolute Nucleated RBC 0.00 (0.00-0.012) x10^3u/L Lymphocytes % 17.2 L (21.8-53.1) % Monocytes % 11.1 (5.3-12.2) % Eosinophils % 0.9 (0.8-7.0) % Basophils % 0.5 (0.2-1.2) % Absolute Granulocytes 7.51 H (1.78-5.38) x10^3/uL Basophils # 0.05 (0.01-0.08) x10^3/uL D-Dimer (0.0-0.50) mg/L Sodium (135-145) mmol/L Potassium (3.5-5.1) mmol/L Chloride (98-107) mmol/L Carbon Dioxide (22-30) mmol/L Anion Gap (5-15) MEQ/L BUN (9-20) mg/dL Creatinine (0.66-1.25) mg/dL Estimated GFR ML/MIN Glucose (74-106) mg/dL Calcium (8.4-10.2) mg/dL Total Bilirubin (0.2-1.3) mg/dL AST (17-59) U/L ALT (0-50) U/L Alkaline Phosphatase (38-126) U/L Troponin I (0.000-0.033) ng/mL NT-Pro-B Natriuret Pep (<300) pg/mL Serum Total Protein (6.3-8.2) g/dL Albumin (3.5-5.0) g/dL Influenza Type A Ag NEGATIVE (NEGATIVE) Influenza Type B Ag NEGATIVE (NEGATIVE) RSV (PCR) NEGATIVE (NEGATIVE) SARS-CoV-2 (PCR) NEGATIVE (NEGATIVE) - Progress Progress: improved Air Movement: fair Counseled pt/family regarding: lab results, diagnosis, need for follow-up, rad results Medical Desision Making - Diagnostic Testing Diagnostic test were ordered, analyzed, and reviewed by me: Yes Radiological Interpretation: Interpreted by me, Reviewed by me - Risk of complications Low Risk: Low risk of morbidity from additional dx testing or treatment - Departure Departure Disposition: Home Clinical Impression: Chronic atrial fibrillation, Acute renal insufficiency Acute bronchitis Qualifiers: Bronchitis organism: other organism Qualified Code(s): J20.8 - Acute bronchitis due to other specified organisms Condition: Stable Critical Care Time: No Referrals: ELIDIA OLIVAS MD [Primary Care Provider] - Follow up/PCP as directed Instructions: Chronic kidney disease, Bronchitis, Adult ED Additional Instructions: Discharge/Care Plan NORBERT RUIZ was seen on 12/26/23 in the Emergency Room. The patient was counseled regarding Diagnosis,Lab results, Imaging studies, need for follow up and when to return to the Emergency Room. Prescriptions given: Discharge Note I have spoken with the patient and/or caregivers. I have explained the patient's condition, diagnosis and treatment plan based on the information available to me at this time. I have answered the patient's and/or caregiver's questions and addressed any concerns. The patient and/or caregivers have as good understanding of the patient's diagnosis, condition and treatment plan as can be expected at this point. The vital signs have been stable. The patient's condition is stable and appropriate for discharge from the emergency department. The patient will pursue further outpatient evaluation with the primary care physician or other designated or consulting physician as outlined in the dischar ge instructions. The patient and/or caregivers are agreeable to this plan of care and follow-up instructions have been explained in detail. The patient and/or caregivers have received these instruction. The patient/and or caregivers are aware that any significant change in condition or worsening of symptoms should prompt an immediate return to this or the closest emergency department or call 911. NORBERT RUIZ was seen on 12/26/23 n the Emergency Room. At that time you were treated for an emergent condition, during your visit Laboratory, Radiology and/or other procedures may have been ordered. It is very important that you follow-up with your Primary Care Physician ELIDIA OLIVAS within the next 24- 48 hours to review your Emergency Room visit and the final results of testing that was ordered. Some test results such as Urine Cultures, Blood Cultures, and other cultures if ordered will not be finalized for 24-48 hours. If you do not have a Primary Care Provider please call the medical records department at [phone] ext [phone] to obtain a copy of your results or you may sign into our patient portal to obtain these results by visiting us @ [email or web address] and completing the following steps: 1. Click on the Patient Portal link 2. Click the Patient Self Enrollment Link to complete the enrollment form and entering your 3. Once the enrollment form is completed you will receive an email with a temporary ID and password at the email address you provided. 4. Next choose a user name and password. Your user name must be at least 4 characters long and your password must be at least 4 characters long. 5. Choose a security question from the list and provide your answer to the question. If you already have signed into the Health Portal you may access your Health Care Information 10/11 by the following steps: 1. Login to our website @ [email or web address] 2. Enter your original user name and password. FAQS The [facility] Health Portal is an online tool that contains your Lab Results, Radiology Reports, Visit History, Discharge Instructions and Health Summary Lab and Radiology Results will not be available for 72 hours on the portal. The Portal is a secure site, passwords are encryted and URLs are re-written so they cannot be copied and pasted. You and authorized family members are the only ones who can access your Portal. Also there is a timeout feature that protects your information if you leave the Portal page open. If you have technical difficulty please use the Contact Us link on the page this will allow you to submit any questions you have regarding the Portal or you may contact the Medical Record Department at [phone] ext [phone]. Prescriptions: Amoxicillin 500 mg PO TID #30 tablet Methylprednisolone Packet [Medrol Dosepack] 4 mg PO UD #21 packet
[2023-12-26 10:46] LABS: Absolute Neutrophil Ct (ANC) 7.51 x10^3/uL (1.78-5.38); BASOPHIL % 0.5 % (0.2-1.2); Basophil (Absolute #) 0.05 x10^3/uL (0.01-0.08); Eosinophil % 0.9 % (0.8-7.0); Hemoglobin 14.6 g/dL (13.7-17.5); IMMATURE GRAN # 0.07 x10^3u/L (0.001-0.031); IMMATURE GRAN % 0.6 % (0.001-0.429); Lymphocyte (Absolute #) 1.86 x10^3/uL (1.32-3.57); Lymphocytes % 17.2 % (21.8-53.1); Mean Cell Volume 88.9 fL (79.0-92.2); Mean Corpuscular Hemoglobin 29.5 pg (25.7-32.2); Mean Corpuscular Hgb Concent. 33.2 g/dL (32.3-36.5); Mean Platelet Volume 10.9 fL (9.4-12.4); Monocytes % 11.1 % (5.3-12.2); Neutrophil % 69.7 % (34.0-67.9); Platelet Count 185 x10^3/uL (163-337); Red Blood Count 4.95 x10^6/uL (4.63-6.08); Red Cell Distribution Width 13.2 % (11.6-14.4); White Blood Count 10.8 x10^3/uL (4.23-9.07)
[2023-12-26 11:07] LABS: ALBUMIN 4.2 g/dL (3.5-5.0); ANION GAP 13.9 MEQ/L (5-15); BILIRUBIN,TOTAL 0.5 mg/dL (0.2-1.3); Calcium 9.8 mg/dL (8.4-10.2); Creatinine 1 1.49 mg/dL (0.66-1.25); NT PRO BNPII 84.2 pg/mL (<300); Potassium 3.5 mmol/L (3.5-5.1); Total Protein 7.2 g/dL (6.3-8.2)
[2023-12-26] MEDS: ROCEPHIN 1 GM / 100 ML NaCl 1 GM/100 ML IVPB IV ONE (11:11)
[2023-12-26] MEDS ORDERED: solu-MEDROL ONE (11:11)
[2023-12-26] MEDS ORDERED: ROCEPHIN 1 GM / 100 ML NaCl 1 GM/100 ML IVPB IV ONE (11:11)
[2023-12-26] MEDS ORDERED: Sterile H2O 10 ml IJ ONE (11:11)
[2023-12-26 11:12] LABS: INFLUENZA A NEGATIVE (NEGATIVE); INFLUENZA B NEGATIVE (NEGATIVE); RESPIRATORY SYNCTIAL VIRUS NEGATIVE (NEGATIVE); SARS-CoV-2 Xpert Express NEGATIVE (NEGATIVE)
[2023-12-26] MEDS: solu-MEDROL 125 MG, Sterile H2O 10 ml 2 ML IV ONE (11:12)
[2023-12-26 11:46] VITALS: BP 141/70; PULSE 64; RESP 24; O2SAT 94
--- NOTE | 2023-12-26 20:37 | XRAY ---
Indication: Short of breath. Cough. Comparison: August 02, 2023 Portable chest again hyperinflated and clear. Heart and mediastinal structures within normal limits. Bony thorax intact again with osteopenia, degenerative changes, and anterior chest electronic monitoring device. Impression: Continued nonacute chest with chronic features.
== END 2023-12-26 11:52 | disposition home or self-care (01) ==
LOC: ED 09:44
DX: J20.8 Acute bronchitis due to other specified organisms (principal); N28.9 Disorder of kidney and ureter, unspecified; I48.20 Chronic atrial fibrillation, unspecified; R06.02 Shortness of breath; E78.5 Hyperlipidemia, unspecified; I10 Essential (primary) hypertension; Z79.01 Long term (current) use of anticoagulants; Z79.52 Long term (current) use of systemic steroids; Z79.899 Other long term (current) drug therapy; Z72.0 Tobacco use
CPT/HCPCS: 0241U; 36000; 36415; 71045; 80053; 83880; 84484; 85025; 85379; 93005; 93041; 94640; 94760; 96365; 96374; 99284; 96375; J0696; J2919; A9270-GY

== ENCOUNTER 2023-12-27 11:21 | Emergency (ER) | payer MEDICARE ==
--- NOTE | 2023-12-27 12:03 | ERPHSYRPT ---
- History of Present Illness Time Seen by Provider: 12/27/23 11:48 Historian: patient Exam Limitations: no limitations Physician History: Since 6 days ago pt has had a cough; 5 days ago a subjective fever for 2 days; yesterday right lateral chest pain after turning his torso to the left and sneezing; denies abdominal pain, vomiting, diarrhea, nausea, dysuria. Aspirin Treatment Today: unknown Allergies/Adverse Reactions: No Known Drug Allergies Allergy (Verified 12/26/23 09:45) Home Medications: Omeprazole 20 MG [Prilosec 20 mg] 20 mg PO DAILY 11/08/12 [History] Apixaban [Eliquis 5 mg Tablet] 5 mg PO BID 10/30/16 [History] Pravastatin Sodium 20 mg PO DAILY 12/22/18 [History] Losartan Potassium 50 mg [Cozaar 50 MG] 100 mg PO DAILY 08/02/23 [History] Amiodarone HCl [Pacerone] 200 mg PO DAILY 12/26/23 [History] Hydrochlorothiazide 25 mg [hydroDIURIL 25 MG] 12.5 mg PO DAILY 12/26/23 [History] Lutein [Natural Lutein] 20 mg PO DAILY 12/26/23 [History] Metoprolol Tartrate 25 mg [Lopressor 25MG Tab] 25 mg PO BID 12/26/23 [History] Hx Tetanus, Diphtheria Vaccination/Date Given: Yes Hx Influenza Vaccination/Date Given: Yes (every year) Hx Pneumococcal Vaccination/Date Given: Yes (03/2023) Travel Risk - Emerging Infectious Disease Are you exhibiting symptoms associated with any current EIDs: Yes Symptoms: Cough: New Onset, Fever, Shortness of Breath - Review of Systems Constitutional: Fever Respiratory: Cough Cardiac: Chest Pain Abdominal/Gastrointestinal: No Abdominal Pain, No Nausea, No Vomiting, No Diarrhea Genitourinary Symptoms: No Dysuria Neurological: No Headache - Past Medical History Pertinent Past Medical History: Yes Neurological History: No Pertinent History ENT History: No Pertinent History Cardiac History: Angina, Arrhythmia, High Cholesterol, Hypertension Respiratory History: No Pertinent History Endocrine Medical History: No Pertinent History Musculoskeletal History: Other GI Medical History: No Pertinent History History: No Pertinent History Psycho-Social History: No Pertinent History Male Reproductive Disorders: No Pertinent History Other Medical History: mild coronary blockage without intervention, Bb Shot Packer: John Xavier, - Past Surgical History Past Surgical History: Yes Neuro Surgical History: No Pertinent History Cardiac: Cardiac Catheterization Respiratory: No Pertinent History Gastrointestinal: No Pertinent History Genitourinary: No Pertinent History Musculoskeletal: Other Male Surgical History: No Pertinent History Other Surgical History: Hx Laminectomy L4-L5 back surgery in 1980. - Social History Smoking Status: Current every day smoker How long have you smoked: 60 Exposure to second hand smoke: No Drug Use: none Patient Lives Alone: No () - Social Determinants of Health Will the patient participate in the screening: Yes Do you worry about a steady place to live?: No In the past 12 months,have you had to go without utilities?: No Transportation Issues: No Has anyone in your support network made you feel unsafe?: No Have you or anyone in your house had to go without enough: No - Nursing Vital Signs Nursing Vital Signs: Initial Vital Signs Pulse Rate 60 12/27/23 11:21 Respiratory Rate 18 12/27/23 11:21 Blood Pressure 151/87 12/27/23 11:21 O2 Sat by Pulse Oximetry 92 L 12/27/23 11:21 Pain Scale Pain Intensity [Right Lateral] 9 Pain Intensity 3 - Physical Exam General Appearance: alert Eye Exam: eyes nml inspection Ears, Nose, Throat Exam: TMs normal, pharyngeal erythema Neck Exam: normal inspection Respiratory Exam: chest tenderness (mild right lateral rib tenderness; pain in this area with coughing.), wheezing (diffuse expiratory wheezing) Cardiovascular Exam: normal heart sounds Gastrointestinal/Abdomen Exam: normal bowel sounds, No tenderness Extremity Exam: No pedal edema Neurologic Exam: alert, cooperative Skin Exam: warm, dry - Course EKG Interpreted by Me: RATE (58), Sinus Bert, Right Bundle Branch Block, Other (QTc = 462) - CT Exams Chest CT Interpretation: Tele-radiologist Report, appendicitis (See report.) Ordered Tests: Active Orders 24 hr Category Date Time Status EKG-ER Only STAT Care 12/27/23 12:06 Active CHEST WITHOUT CONTRAST [CT] Stat Exams 12/27/23 12:05 Completed AMYLASE Stat Lab 12/27/23 12:58 Completed CBC W DIFF Stat Lab 12/27/23 12:50 Completed CMP Stat Lab 12/27/23 12:58 Completed LIPASE Stat Lab 12/27/23 12:58 Completed MAGNESIUM Stat Lab 12/27/23 12:58 Completed TROPONIN Q4H Lab 12/27/23 12:58 Completed TROPONIN Q4H Lab 12/27/23 16:15 Ordered TROPONIN Q4H Lab 12/27/23 20:15 Ordered Medication Summary Generic Name Dose Route Start Last Admin Trade Name Freq PRN Reason Stop Dose Admin Sodium Chloride 1,000 mls @ 100 mls/hr 12/27/23 12:15 12/27/23 12:58 Sodium Chloride 0.9% 1000 Ml IV 01/26/24 12:14 Not Given .Q10H ERICA Ceftriaxone Sodium 1 gm in 100 mls @ 200 mls/hr 12/27/23 14:52 Rocephin 1 Gm / 100 Ml Nacl IV 12/27/23 15:21 STAT ONE Sodium Chloride 1,000 mls @ 999 mls/hr 12/27/23 14:54 Sodium Chloride 0.9% 1000 Ml IV 12/27/23 15:54 .Q1H1M STA Magnesium Oxide 400 mg 12/28/23 10:00 Magnesium Oxide 400 Mg Tablet PO 01/27/24 09:59 DAILY ERICA Discontinued Medications Generic Name Dose Route Start Last Admin Trade Name Andrew PRN Reason Stop Dose Admin Hydrocodone Bitart/Acetaminophen 2 tab 12/27/23 12:08 12/27/23 12:15 Hydrocodone/Apap 5/325 1 Tab Tablet PO 12/27/23 12:09 2 tab STAT ONE Administration Hydrocodone Bitart/Acetaminophen Confirm 12/27/23 12:12 Hydrocodone/Apap 5/325 1 Tab Tablet Administered 12/27/23 12:13 Dose 2 tab .ROUTE .STK-MED ONE Azithromycin 500 mg 12/27/23 14:53 Azithromycin 250 Mg Tablet PO 12/27/23 14:54 STAT ONE Lab/Rad Data: Laboratory Result Diagrams 12/27/23 12:50 12/27/23 12:58 Laboratory Results 12/27/23 12/27/23 12/27/23 Range/Units 12:58 12:58 12:50 WBC 15.4 H (4.23-9.07) x10^3/uL RBC 4.73 (4.63-6.08) x10^6/uL Hgb 13.9 (13.7-17.5) g/dL Hct 41.7 (40.1-51.0) % MCV 88.2 (79.0-92.2) fL MCH 29.4 (25.7-32.2) pg MCHC 33.3 (32.3-36.5) g/dL RDW 13.0 (11.6-14.4) % Plt Count 199 (163-337) x10^3/uL MPV 10.5 (9.4-12.4) fL Gran % 82.4 H (34.0-67.9) % Immature Gran % (Auto) 0.8 H (0.001-0.429) % Nucleat RBC Rel Count 0.0 (0.00-0.2) % Eos # (Auto) 0 L (0.04-0.54) x10^3/uL Immature Gran # (Auto) 0.12 H (0.001-0.031) x10^3u/L Absolute Lymphs (auto) 1.56 (1.32-3.57) x10^3/uL Absolute Monos (auto) 1.00 H (0.30-0.82) x10^3/uL Absolute Nucleated RBC 0.00 (0.00-0.012) x10^3u/L Lymphocytes % 10.2 L (21.8-53.1) % Monocytes % 6.5 (5.3-12.2) % Eosinophils % 0.0 L (0.8-7.0) % Basophils % 0.1 L (0.2-1.2) % Absolute Granulocytes 12.66 H (1.78-5.38) x10^3/uL Basophils # 0.02 (0.01-0.08) x10^3/uL Sodium 137 (135-145) mmol/L Potassium 3.5 (3.5-5.1) mmol/L Chloride 98 (98-107) mmol/L Carbon Dioxide 26 (22-30) mmol/L Anion Gap 16.0 H (5-15) MEQ/L BUN 28 H (9-20) mg/dL Creatinine 1.38 H (0.66-1.25) mg/dL Estimated GFR 52.7 ML/MIN Glucose 137 H (74-106) mg/dL Calcium 9.5 (8.4-10.2) mg/dL Magnesium 1.5 L (1.6-2.3) mg/dL Total Bilirubin 0.50 (0.2-1.3) mg/dL AST 34 (17-59) U/L ALT 29 (0-50) U/L Alkaline Phosphatase 62 (38-126) U/L Troponin I < 0.012 (0.000-0.033) ng/mL Serum Total Protein 7.8 (6.3-8.2) g/dL Albumin 4.4 (3.5-5.0) g/dL Amylase 72 (30-110) U/L Lipase 47 (23-300) U/L - Progress Progress: improved Counseled pt/family regarding: lab results, diagnosis, need for follow-up, rad results Medical Desision Making - Diagnostic Testing Diagnostic test were ordered, analyzed, and reviewed by me: Yes Radiological Interpretation: Teleradiologist Report - Departure Departure Disposition: Home Clinical Impression: Bronchitis, Right-sided chest pain, Hx of fever Condition: Stable Critical Care Time: No Referrals: ELIDIA OLIVAS MD [Primary Care Provider] - Follow up/PCP as directed Instructions: Bronchitis, Adult ED Additional Instructions: Follow up with private doctor tomorrow. Prescriptions: Azithromycin 500 mg PO DAILY #3 tablet Cefpodoxime Proxetil 200 mg [Vantin 200 mg] 200 mg PO BID #20 tablet
[2023-12-27 12:07] VITALS: RESP 18
[2023-12-27] MEDS ORDERED: NORCO 5/325 MG ONE (12:12)
[2023-12-27] MEDS: NORCO 5/325 MG PO ONE (12:15)
[2023-12-27] MEDS: Sodium Chloride 0.9% 1000 ML 1,000 ML IV SCH (12:58)
[2023-12-27 13:05] LABS: Absolute Neutrophil Ct (ANC) 12.66 x10^3/uL (1.78-5.38); BASOPHIL % 0.1 % (0.2-1.2); Basophil (Absolute #) 0.02 x10^3/uL (0.01-0.08); Eosinophil (Absolute #) 0 x10^3/uL (0.04-0.54); Hematocrit 41.7 % (40.1-51.0); Hemoglobin 13.9 g/dL (13.7-17.5); IMMATURE GRAN # 0.12 x10^3u/L (0.001-0.031); IMMATURE GRAN % 0.8 % (0.001-0.429); Lymphocyte (Absolute #) 1.56 x10^3/uL (1.32-3.57); Lymphocytes % 10.2 % (21.8-53.1); Mean Cell Volume 88.2 fL (79.0-92.2); Mean Corpuscular Hemoglobin 29.4 pg (25.7-32.2); Mean Corpuscular Hgb Concent. 33.3 g/dL (32.3-36.5); Mean Platelet Volume 10.5 fL (9.4-12.4); Monocytes % 6.5 % (5.3-12.2); Neutrophil % 82.4 % (34.0-67.9); Platelet Count 199 x10^3/uL (163-337); Red Blood Count 4.73 x10^6/uL (4.63-6.08); White Blood Count 15.4 x10^3/uL (4.23-9.07)
[2023-12-27 13:20] LABS: ALBUMIN 4.4 g/dL (3.5-5.0); BILIRUBIN,TOTAL 0.5 mg/dL (0.2-1.3); Calcium 9.5 mg/dL (8.4-10.2); Creatinine 1 1.38 mg/dL (0.66-1.25); EST GLOMERULAR FILTRATION RATE 52.7 ML/MIN; MAGNESIUM 1.5 mg/dL (1.6-2.3); Potassium 3.5 mmol/L (3.5-5.1); Total Protein 7.8 g/dL (6.3-8.2)
[2023-12-27 13:49] VITALS: TEMP 97.8
--- NOTE | 2023-12-27 14:33 | XRAY ---
CLINICAL HISTORY: pain right lateral ribs COMPARISON: CT dated 08/03/2023 TECHNIQUE: Contiguous axial CT images of the chest were acquired without administration of intravenous contrast. Coronal and sagittal reconstructions were obtained. One of the following dose reduction techniques were utilized for this exam: Automated exposure control, adjustment of the mA and/or kV according to patient size, use of iterative reconstruction. FINDINGS: Lungs: Mild centrilobular and paraseptal emphysematous changes predominantly involving both apical lobes . No evidence of consolidation, collapse, or focal lesions. No pulmonary nodules or masses are identified. No evidence of interstitial lung disease or emphysema. No pleural effusion. Mild posterior pleural thickening at lung bases. Mediastinum: The mediastinum is normal in size and contour. No mediastinal mass or abnormal lymphadenopathy. The heart size is within normal limits. Hilar Structures: The hilar structures appear normal without enlargement or abnormality. Trachea and Main Bronchi: The trachea and main bronchi are patent without evidence of obstruction or abnormality. Chest Wall: The chest wall is unremarkable with no evidence of soft tissue or bony abnormalities. Upper Abdomen: Visualized portions of the liver, spleen, adrenal glands, and kidneys are unremarkable. Bones: Visualized osseous structures are normal, no evidence of fracture or lytic/sclerotic lesions. IMPRESSION: 1. Mild centrilobular and paraseptal emphysematous changes predominantly involving both apical lobes . Stable finding 2. Interval resolution of bilateral pleural effusion 3. No clear rib pathology noted. To consider ultrasound or MRI if pain persists. Electronically Signed by: Julio Tabares MD. (12/27/2023 14:29:20 EDT)
[2023-12-27] MEDS ORDERED: ROCEPHIN 1 GM / 100 ML NaCl 1 GM/100 ML IVPB IV ONE (14:52)
[2023-12-27] MEDS ORDERED: Zithromax 250 MG TABLET ONE (14:57)
[2023-12-27] MEDS ORDERED: Rocephin 1000 MG INJ ONE (14:57)
[2023-12-27] MEDS: Rocephin 1000 MG INJ IM ONE (15:01)
[2023-12-27] MEDS: Zithromax 250 MG TABLET PO ONE (15:01)
[2023-12-27] MEDS ORDERED: MAG-OX 400 ONE (15:03)
[2023-12-27] MEDS: MAG-OX 400 PO ONE (15:03)
[2023-12-27] MEDS: Sodium Chloride 0.9% 1000 ML 1,000 ML IV STA (15:08)
[2023-12-27] MEDS ORDERED: PROVENTIL 2.5 MG/3 ML NEB IH ONE (15:10)
[2023-12-27] MEDS: PROVENTIL 2.5 MG/3 ML NEB IH ONE (15:12)
[2023-12-27 15:17] VITALS: BP 136/67; O2SAT 95
[2023-12-27 15:18] VITALS: PULSE 64
[2023-12-28] MEDS ORDERED: MAG-OX 400 PO SCH (10:00)
== END 2023-12-27 15:27 | disposition home or self-care (01) ==
LOC: ED 11:21
DX: J40 Bronchitis, not specified as acute or chronic (principal); R07.9 Chest pain, unspecified; Z87.898 Personal history of other specified conditions; R05.1 Acute cough; E78.5 Hyperlipidemia, unspecified; I10 Essential (primary) hypertension; Z79.01 Long term (current) use of anticoagulants; Z79.899 Other long term (current) drug therapy; Z72.0 Tobacco use
CPT/HCPCS: 36415; 71250; 80053; 82150; 83690; 83735; 84484; 85025; 93005; 94640; 96372; 99284; J0696; J7609; A9270-GY

== ENCOUNTER 2024-06-16 13:50 | Emergency (ER) | payer MEDICARE ==
[2024-06-16 14:01] VITALS: TEMP 99.5
--- NOTE | 2024-06-16 15:02 | ERPHSYRPT ---
- History of Present Illness Time Seen by Provider: 06/16/24 13:57 Source: patient, family, EMS Exam Limitations: no limitations Patient Subjective Stated Complaint: "I feel so sick, I've been puking today", states, "He's been coughing and I couldn't even hardly get him off the cough, he's so weak and almost has fell today". Triage Nursing Assessment: Since last night, pt has been increasingly weak had a cough and some episodes of vomiting. Presents to ER with flu-like symptoms by ambulance. is at bedside. Pt appears very weak and has to have assist x 2 to get from wheelchair to bed. Pt vomited x 1 upon triage. Complains of aches and pains all over. Pt respirations are easy and unlabored at this time. Pt skin is pale and diaphoretic. Physician History: 78-year-old male with history of atrial fibrillation on Eliquis, hypertension, hyperlipidemia, tobacco use, COPD presented in the ER with complaints of flulike symptoms started last night. Patient reports sinus/nasal congestion, progressively worsening cough productive of clear to yellow sputum. Has taken neb treatment at home with no significant relief. Subjective feeling of fever and chills, aches and pains all over. Also reports having nausea and dry heaving but no vomiting. Denies any abdominal pain. Allergies/Adverse Reactions: No Known Drug Allergies Allergy (Verified 06/16/24 14:01) Home Medications: Omeprazole 20 MG [Prilosec 20 mg] 20 mg PO DAILY 11/08/12 [History] Apixaban [Eliquis 5 mg Tablet] 5 mg PO BID 10/30/16 [History] Pravastatin Sodium 20 mg PO DAILY 12/22/18 [History] Losartan Potassium 50 mg [Cozaar 50 MG] 100 mg PO DAILY 08/02/23 [History] Amiodarone HCl [Pacerone] 200 mg PO DAILY 12/26/23 [History] Hydrochlorothiazide 25 mg [hydroDIURIL 25 MG] 12.5 mg PO DAILY 12/26/23 [History] Lutein [Natural Lutein] 20 mg PO DAILY 12/26/23 [History] Metoprolol Tartrate 25 mg [Lopressor 25MG Tab] 25 mg PO BID 12/26/23 [History] Amlodipine Besylate 5 mg [Norvasc 5 mg] 10 mg PO DAILY 06/16/24 [History] Hx Tetanus, Diphtheria Vaccination/Date Given: Yes Hx Influenza Vaccination/Date Given: Yes (every year) Hx Pneumococcal Vaccination/Date Given: Yes (03/2023) Travel Risk - International Travel Have you traveled outside of the country in past 3 weeks: No - Emerging Infectious Disease Are you exhibiting symptoms associated with any current EIDs: Yes Symptoms: Cough: New Onset, Headaches/Body Aches/, Vomitting - Review of Systems Constitutional: Fever, Chills, Fatigue, Weakness Eyes: No Symptoms Ears, Nose, & Throat: Nose Congestion, Throat Pain Respiratory: Cough, Wheezing Cardiac: Chest Pain Abdominal/Gastrointestinal: Nausea Genitourinary Symptoms: No Symptoms Musculoskeletal: Myalgias Neurological: Headache Endocrine: No Symptoms Hematologic/Lymphatic: No Symptoms - Past Medical History Pertinent Past Medical History: Yes Neurological History: No Pertinent History ENT History: No Pertinent History Cardiac History: Angina, Arrhythmia, High Cholesterol, Hypertension Respiratory History: No Pertinent History Endocrine Medical History: No Pertinent History Musculoskeletal History: Other GI Medical History: No Pertinent History History: No Pertinent History Psycho-Social History: No Pertinent History Male Reproductive Disorders: No Pertinent History Other Medical History: mild coronary blockage without intervention, Appeals Manager: John Xavier, - Past Surgical History Past Surgical History: Yes Neuro Surgical History: No Pertinent History Cardiac: Cardiac Catheterization Respiratory: No Pertinent History Gastrointestinal: No Pertinent History Genitourinary: No Pertinent History Musculoskeletal: Other Male Surgical History: No Pertinent History Other Surgical History: Hx Laminectomy L4-L5 back surgery in 1980. - Social History Smoking Status: Current every day smoker How long have you smoked: 60 Exposure to second hand smoke: No Drug Use: none - Social Determinants of Health Will the patient participate in the screening: Yes Do you worry about a steady place to live?: No Do you have any problems with any of the following?: No known problems In the past 12 months,have you had to go without utilities?: No Transportation Issues: No Has anyone in your support network made you feel unsafe?: No Have you or anyone in your house had to go w/o enough food: No - Nursing Vital Signs Nursing Vital Signs: Initial Vital Signs Temperature 99.5 F 06/16/24 13:54 Pulse Rate 79 06/16/24 13:54 Respiratory Rate 18 06/16/24 13:54 Blood Pressure 182/75 06/16/24 13:54 O2 Sat by Pulse Oximetry 94 L 06/16/24 13:54 Pain Scale Pain Intensity 0 - Physical Exam General Appearance: no apparent distress, alert Eye Exam: PERRL/EOMI Ears, Nose, Throat Exam: moist mucous membranes, pharyngeal erythema Neck Exam: normal inspection, non-tender, supple, full range of motion Respiratory Exam: normal breath sounds, wheezing Cardiovascular Exam: regular rate/rhythm, normal heart sounds Gastrointestinal/Abdomen Exam: soft, normal bowel sounds, No tenderness Extremity Exam: normal inspection Neurologic Exam: alert, oriented x 3, cooperative Skin Exam: normal color SpO2 Interpretation: normal SpO2: 94 O2 Delivery: Room Air Ordered Tests: Active Orders 24 hr Category Date Time Status IV Insertion STAT Care 06/16/24 14:53 Active CHEST 1 VIEW (PORTABLE) Stat Exams 06/16/24 14:55 Completed BLOOD CULTURE Stat Lab 06/16/24 15:30 Received CBC W DIFF Stat Lab 06/16/24 15:30 Completed CMP Stat Lab 06/16/24 15:30 Completed CULTURE,URINE Stat Lab 06/16/24 15:07 Received LIPASE Stat Lab 06/16/24 15:30 Completed Lactic Acid Stat Lab 06/16/24 15:30 Completed TROPONIN Q4H Lab 06/16/24 15:30 Completed TROPONIN Q4H Lab 06/16/24 19:00 Ordered TROPONIN Q4H Lab 06/16/24 23:00 Ordered UA W/RFX UR CULTURE Stat Lab 06/16/24 15:07 Completed Respiratory Therapy Assessment DAILY RT 06/16/24 15:21 Active Medication Summary Discontinued Medications Generic Name Dose Route Start Last Admin Trade Name Freq PRN Reason Stop Dose Admin Acetaminophen 975 mg 06/16/24 14:53 06/16/24 16:00 Acetaminophen 325 Mg Tablet PO 06/16/24 14:54 975 mg STAT ONE Administration Acetaminophen Confirm 06/16/24 15:55 Acetaminophen 325 Mg Tablet Administered 06/16/24 15:56 Dose 975 mg .ROUTE .STK-MED ONE Albuterol/Ipratropium 3 ml 06/16/24 15:01 06/16/24 15:19 Ipratropium/Albuterol Sulfate 3 Ml Ampul.Neb IH 06/16/24 15:02 3 ml STAT ONE Administration Albuterol/Ipratropium Confirm 06/16/24 15:16 Ipratropium/Albuterol Sulfate 3 Ml Ampul.Neb Administered 06/16/24 15:17 Dose 3 ml IH .STK-MED ONE Ondansetron HCl 4 mg 06/16/24 14:53 06/16/24 16:01 Ondansetron Hcl 4 Mg/2 Ml Vial IV 06/16/24 14:54 4 mg STAT ONE Administration Ondansetron HCl Confirm 06/16/24 15:55 Ondansetron Hcl 4 Mg/2 Ml Vial Administered 06/16/24 15:56 Dose 4 mg .ROUTE .STK-MED ONE Oseltamivir Phosphate 75 mg 06/16/24 16:41 06/16/24 16:54 Oseltamivir 75 Mg Cap PO 06/16/24 16:42 75 mg STAT ONE Administration Oseltamivir Phosphate Confirm 06/16/24 16:53 Oseltamivir 75 Mg Cap Administered 06/16/24 16:54 Dose 75 mg PO .STK-MED ONE Lab/Rad Data: Laboratory Result Diagrams 06/16/24 15:30 06/16/24 15:30 Laboratory Results 06/16/24 06/16/24 06/16/24 Range/Units 15:30 15:30 15:30 WBC (4.23-9.07) x10^3/uL RBC (4.63-6.08) x10^6/uL Hgb (13.7-17.5) g/dL Hct (40.1-51.0) % MCV (79.0-92.2) fL MCH (25.7-32.2) pg MCHC (32.3-36.5) g/dL RDW (11.6-14.4) % Plt Count (163-337) x10^3/uL MPV (9.4-12.4) fL Gran % (34.0-67.9) % Immature Gran % (Auto) (0.001-0.429) % Nucleat RBC Rel Count (0.00-0.2) % Eos # (Auto) (0.04-0.54) x10^3/uL Immature Gran # (Auto) (0.001-0.031) x10^3u/L Absolute Lymphs (auto) (1.32-3.57) x10^3/uL Absolute Monos (auto) (0.30-0.82) x10^3/uL Absolute Nucleated RBC (0.00-0.012) x10^3u/L Lymphocytes % (21.8-53.1) % Monocytes % (5.3-12.2) % Eosinophils % (0.8-7.0) % Basophils % (0.2-1.2) % Absolute Granulocytes (1.78-5.38) x10^3/uL Basophils # (0.01-0.08) x10^3/uL Sodium 138 (135-145) mmol/L Potassium 4.0 (3.5-5.1) mmol/L Chloride 103 (98-107) mmol/L Carbon Dioxide 24 (22-30) mmol/L Anion Gap 15.2 H (5-15) MEQ/L BUN 12 (9-20) mg/dL Creatinine 1.30 H (0.66-1.25) mg/dL Estimated GFR 56.6 ML/MIN Glucose 133 H (74-106) mg/dL Lactic Acid (0.4-2.0) Calcium 9.1 (8.4-10.2) mg/dL Total Bilirubin 0.70 (0.2-1.3) mg/dL AST 31 (17-59) U/L ALT 26 (0-50) U/L Alkaline Phosphatase 66 (38-126) U/L Troponin I < 0.012 (0.000-0.033) ng/mL Serum Total Protein 7.2 (6.3-8.2) g/dL Albumin 4.4 (3.5-5.0) g/dL Lipase 31 (23-300) U/L Urine Color (Yellow) Urine Appearance (Clear) Urine pH (4.6-8.0) Ur Specific [place] (1.005-1.030) Urine Protein (Negative) Urine Glucose (UA) (Negative) mg/dL Urine Ketones (Negative) Urine Blood (Negative) Urine Nitrite (Negative) Urine Bilirubin (Negative) Urine Urobilinogen (0.2) mg/dL Ur Leukocyte Esterase (Negative) U Hyaline Cast (Auto) (0-2) /LPF Urine Microscopic RBC (0-5) /HPF Urine Microscopic WBC (0-5) /HPF Ur Epithelial Cells (None Seen) /HPF Urine Bacteria (None Seen) /HPF Urine Culture Reflexed (NO) Influenza Type A Ag POSITIVE A (NEGATIVE) Influenza Type B Ag NEGATIVE (NEGATIVE) RSV (PCR) NEGATIVE (NEGATIVE) SARS-CoV-2 (PCR) NEGATIVE (NEGATIVE) 06/16/24 06/16/24 06/16/24 Range/Units 15:30 15:30 15:07 WBC 12.5 H (4.23-9.07) x10^3/uL RBC 5.09 (4.63-6.08) x10^6/uL Hgb 15.1 (13.7-17.5) g/dL Hct 44.8 (40.1-51.0) % MCV 88.0 (79.0-92.2) fL MCH 29.7 (25.7-32.2) pg MCHC 33.7 (32.3-36.5) g/dL RDW 13.8 (11.6-14.4) % Plt Count 158 L (163-337) x10^3/uL MPV 10.7 (9.4-12.4) fL Gran % 83.1 H (34.0-67.9) % Immature Gran % (Auto) 0.6 H (0.001-0.429) % Nucleat RBC Rel Count 0.0 (0.00-0.2) % Eos # (Auto) 0 L (0.04-0.54) x10^3/uL Immature Gran # (Auto) 0.08 H (0.001-0.031) x10^3u/L Absolute Lymphs (auto) 0.55 L (1.32-3.57) x10^3/uL Absolute Monos (auto) 1.43 H (0.30-0.82) x10^3/uL Absolute Nucleated RBC 0.00 (0.00-0.012) x10^3u/L Lymphocytes % 4.4 L (21.8-53.1) % Monocytes % 11.4 (5.3-12.2) % Eosinophils % 0.0 L (0.8-7.0) % Basophils % 0.5 (0.2-1.2) % Absolute Granulocytes 10.38 H (1.78-5.38) x10^3/uL Basophils # 0.06 (0.01-0.08) x10^3/uL Sodium (135-145) mmol/L Potassium (3.5-5.1) mmol/L Chloride (98-107) mmol/L Carbon Dioxide (22-30) mmol/L Anion Gap (5-15) MEQ/L BUN (9-20) mg/dL Creatinine (0.66-1.25) mg/dL Estimated GFR ML/MIN Glucose (74-106) mg/dL Lactic Acid 1.6 (0.4-2.0) Calcium (8.4-10.2) mg/dL Total Bilirubin (0.2-1.3) mg/dL AST (17-59) U/L ALT (0-50) U/L Alkaline Phosphatase (38-126) U/L Troponin I (0.000-0.033) ng/mL Serum Total Protein (6.3-8.2) g/dL Albumin (3.5-5.0) g/dL Lipase (23-300) U/L Urine Color Yellow (Yellow) Urine Appearance Clear (Clear) Urine pH 7.0 (4.6-8.0) Ur Specific [place] 1.020 (1.005-1.030) Urine Protein 100 A (Negative) Urine Glucose (UA) Negative (Negative) mg/dL Urine Ketones Negative (Negative) Urine Blood Small A (Negative) Urine Nitrite Negative (Negative) Urine Bilirubin Negative (Negative) Urine Urobilinogen 0.2 (0.2) mg/dL Ur Leukocyte Esterase Negative (Negative) U Hyaline Cast (Auto) NONE SEEN (0-2) /LPF Urine Microscopic RBC 11-20 A (0-5) /HPF Urine Microscopic WBC 0-2 (0-5) /HPF Ur Epithelial Cells None Seen (None Seen) /HPF Urine Bacteria None Seen (None Seen) /HPF Urine Culture Reflexed YES (NO) Influenza Type A Ag (NEGATIVE) Influenza Type B Ag (NEGATIVE) RSV (PCR) (NEGATIVE) SARS-CoV-2 (PCR) (NEGATIVE) - Progress Progress: improved, re-examined Air Movement: good Progress Note: 06/16/24 17:57 78-year-old is evaluated in the ER for flulike symptoms since yesterday. Patient is given symptomatic treatment, feeling better on reevaluation and resting comfortably. Room air oxygen saturation in upper 90s, not in any distress, has minimal wheezing. Has history of COPD and uses nebulizer at home. Chest x-ray showed finding consistent with bronchitis and no focal consolidation reviewed by me followed by official read. Has white count12 , chemistries fairly unremarkable with a stable CKD. Has positive influenza A and started on Tamiflu. I do not think patient needs any other workup, recommended using inhaler/nebulizer and will continue with Tamiflu to go home along with a short course of steroid for COPD bronchi. Discussed signs symptoms of worsening needing return to ER which he seems understanding. Stable for discharge. Complexity of problem addressed: Acute moderate Complexity of data reviewed/analyzed.: Moderate Risk of complication/morbidity/mortality patient management. Mild to moderate. Blood Culture(s) Obtained: Yes Antibiotics given: No Counseled pt/family regarding: lab results, diagnosis, need for follow-up, rad results, smoking cessation Medical Desision Making - Independent Historian Additional History obtained from: Spouse, Lobster Catcher/EMT - Diagnostic Testing Diagnostic test were ordered, analyzed, and reviewed by me: Yes Radiological Interpretation: Interpreted by me, Reviewed by me, Teleradiologist Report - Risk of complications The pt has a mod risk of morbidity or mortality based on: Need for prescription drug management - Departure Departure Disposition: Home Clinical Impression: Influenza A, COPD with acute bronchitis Condition: Stable Critical Care Time: No Referrals: ELIDIA OLIVAS MD [Primary Care Provider] - Follow up with PCP 1 day Instructions: Chronic Obstructive Pulmonary Disease, Flu in adults - Discharge instructions Additional Instructions: Take Tylenol/nebulizer as needed. Follow-up with primary care for reevaluation. Return to ER for persistent worsening cough, difficulty breathing or persistent high-grade fever, intractable vomiting etc. Prescriptions: Prednisone 20 mg [Deltasone 20 mg] 40 mg PO DAILY 5 Days #10 tablet Oseltamivir 75 mg [Tamiflu 75MG Capsule] 75 mg PO BID #10 cap
[2024-06-16 15:16] LABS: Appearance Clear (Clear); Bacteria None Seen /HPF (None Seen); Bilirubin Negative (Negative); Blood Small (Negative); Epithelial Cells None Seen /HPF (None Seen); Glucose, Urine Negative (Negative); Hyaline Casts NONE SEEN /LPF (0-2); Ketones Negative (Negative); Leukocyte Esterase Negative (Negative); Nitrite Negative (Negative); Protein,Urine Dip 100 (Negative); Urobilinogen 0.2 mg/dL (0.2); WBC 0-2 /HPF (0-5)
[2024-06-16] MEDS ORDERED: DUONEB 0.5-3 MG/3 ml Neb IH ONE (15:16)
[2024-06-16] MEDS: DUONEB 0.5-3 MG/3 ml Neb IH ONE (15:19)
[2024-06-16 15:40] LABS: Absolute Neutrophil Ct (ANC) 10.38 x10^3/uL (1.78-5.38); BASOPHIL % 0.5 % (0.2-1.2); Basophil (Absolute #) 0.06 x10^3/uL (0.01-0.08); Eosinophil (Absolute #) 0 x10^3/uL (0.04-0.54); Hematocrit 44.8 % (40.1-51.0); Hemoglobin 15.1 g/dL (13.7-17.5); IMMATURE GRAN # 0.08 x10^3u/L (0.001-0.031); IMMATURE GRAN % 0.6 % (0.001-0.429); Lymphocyte (Absolute #) 0.55 x10^3/uL (1.32-3.57); Lymphocytes % 4.4 % (21.8-53.1); Mean Corpuscular Hemoglobin 29.7 pg (25.7-32.2); Mean Corpuscular Hgb Concent. 33.7 g/dL (32.3-36.5); Mean Platelet Volume 10.7 fL (9.4-12.4); Monocyte (Absolute #) 1.43 x10^3/uL (0.30-0.82); Monocytes % 11.4 % (5.3-12.2); Neutrophil % 83.1 % (34.0-67.9); Platelet Count 158 x10^3/uL (163-337); Red Blood Count 5.09 x10^6/uL (4.63-6.08); Red Cell Distribution Width 13.8 % (11.6-14.4); White Blood Count 12.5 x10^3/uL (4.23-9.07)
[2024-06-16 15:54] LABS: ALBUMIN 4.4 g/dL (3.5-5.0); ANION GAP 15.2 MEQ/L (5-15); BILIRUBIN,TOTAL 0.7 mg/dL (0.2-1.3); Calcium 9.1 mg/dL (8.4-10.2); Creatinine 1 1.3 mg/dL (0.66-1.25); EST GLOMERULAR FILTRATION RATE 56.6 ML/MIN; Total Protein 7.2 g/dL (6.3-8.2)
[2024-06-16] MEDS ORDERED: TYLENOL 325 MG ONE (15:55)
[2024-06-16] MEDS ORDERED: Zofran 4 MG/2 ML VIAL ONE (15:55)
--- NOTE | 2024-06-16 15:59 | XRAY ---
CLINICAL HISTORY: COUGH COMPARISON: Compared to the previous study dated 12/27/2023. and 12/26/2023 TECHNIQUE: X-ray images of the chest were obtained in anteroposterior FINDINGS: Pulmonary Parenchyma: Bilateral hypoattenuating of both upper lung zones.Stable. Bilateral increased broncho vascular markings with bilateral lower lobar reticulations.Mild progression. Bilateral prominent alia. No evidence of pleural effusion or pleural thickening. Heart and Mediastinum: Heart size and shape are normal. No mediastinal widening or masses. No hilar or mediastinal lymphadenopathy. Bony Thorax: Bony thorax appears intact without fractures or deformities. Diffuse spondylotic changes of scanned spine. Soft Tissues: Soft tissues overlying the chest wall are unremarkable. IMPRESSION: 1. Bilateral hypoattenuating of both upper lung zones.Stable. 2. Bilateral increased broncho vascular markings with bilateral lower lobar reticulations.Mild progression.Could be attributed to bronchitis. Recommend clinical correlation and follow-up as appropriate. 3. Bilateral prominent alia.Stable 4. Diffuse spondylotic changes of the scanned spine.Stable Electronically Signed by: Julio Tabares MD. (06/16/2024 15:54:10 EST)
[2024-06-16] MEDS: TYLENOL 325 MG PO ONE (16:00)
[2024-06-16] MEDS: Zofran 4 MG/2 ML VIAL IV ONE (16:01)
[2024-06-16 16:04] VITALS: O2SAT 94
[2024-06-16 16:25] LABS: INFLUENZA B NEGATIVE (NEGATIVE); RESPIRATORY SYNCTIAL VIRUS NEGATIVE (NEGATIVE); SARS-CoV-2 Xpert Express NEGATIVE (NEGATIVE)
[2024-06-16 16:36] LABS: INFLUENZA A POSITIVE (NEGATIVE)
[2024-06-16] MEDS ORDERED: Tamiflu 75MG Capsule PO ONE (16:53)
[2024-06-16] MEDS: Tamiflu 75MG Capsule PO ONE (16:54)
[2024-06-16 17:58] LABS: Slide Review 1 YES
[2024-06-16 18:23] VITALS: BP 103/42; PULSE 78; RESP 30
== END 2024-06-16 18:45 | disposition home or self-care (01) ==
LOC: ED 13:50
DX: J10.1 Influenza due to other identified influenza virus with other respiratory manifestations (principal); J44.0 Chronic obstructive pulmonary disease with (acute) lower respiratory infection; J20.9 Acute bronchitis, unspecified; R05.1 Acute cough; R09.81 Nasal congestion; M79.10 Myalgia, unspecified site; R11.0 Nausea; I10 Essential (primary) hypertension; E78.5 Hyperlipidemia, unspecified; Z79.52 Long term (current) use of systemic steroids; Z79.01 Long term (current) use of anticoagulants; Z79.899 Other long term (current) drug therapy; Z72.0 Tobacco use
CPT/HCPCS: 0241U; 36415; 71045; 80053; 81001; 83605; 83690; 84484; 85025; 87040; 87086; 94640; 96374; 99284; J2405; A9270-GY